=== PATIENT | female | born 1935 | race Caucasian/White ===

== ENCOUNTER 2016-11-02 10:26 | Observation (INO) ==
--- NOTE | 2016-11-02 11:53 | Emergency Department Note ---
Disposition Clinical Impression: Elevated troponin, Symptomatic anemia CHF exacerbation Qualifiers: Congestive heart failure type: unspecified congestive heart failure type Qualified Code(s): I50.9 - Heart failure, unspecified Disposition: Admitted As Inpatient Condition: Fair Referrals: Francisco Javier Torres DO [Primary Care Provider] - Forms: ED Satisfaction Letter General Adult HPI - General Chief complaint: ED Shortness of Breath/Dyspnea Stated complaint: ANKITA / Low O2 Sats Time Seen by Provider: 11/02/16 11:51 Source: patient, family Limitations: no limitations Nursing Notes Reviewed: Yes Vital Signs Reviewed: Yes - History of Present Illness HPI Narrative: 81 y/o female who presents due to bilateral LE edema and dyspnea. She has a PMH of CHF, COPD (on home O2), HLD, and Afib (on eliquis and labetalol), and CHF. She admits to dyspnea with exertion and lower than normal resting SPO2. Was seen at her PCP who recommended she come to the ER due to her hypoxia. SPO2 was in the mid 80's at the PCP office. Denies CP. Denies cough or new productive sputum. No fever. No belly pain or urinary difficulty. Also admits that her RLE was markedly swollen but has since improved some. Radiation: non-radiation Pain Scale: 0 Improves with: nothing Worsens with: other (exertion) Associated symptoms: Reports: denies other symptoms Treatments Prior to Arrival: none - Related Data Home Medications Medication Instructions Recorded Confirmed Aspirin 81 mg PO DAILY 06/20/15 01/26/16 Citalopram Hydrobromide [Celexa] 20 mg PO HS 06/20/15 01/26/16 Cyanocobalamin (Vitamin B-12) 1,000 mcg PO DAILY 06/20/15 01/26/16 [B-12] Ferrous Sulfate [Iron] 650 mg PO DAILY 06/20/15 01/26/16 Furosemide [Lasix] 40 mg PO BID 06/20/15 01/26/16 Simvastatin [Zocor] 40 mg PO HS 06/20/15 01/26/16 Apixaban [Eliquis] 2.5 mg PO BID 11/05/15 01/26/16 Labetalol HCl [Labetalol HCl] 200 mg PO DAILY 01/26/16 01/26/16 Lisinopril [Zestril] 10 mg PO DAILY 01/26/16 01/26/16 Previous Rx's Medication Instructions Recorded Pantoprazole Sodium [Protonix] 40 mg PO BID #60 tablet. 11/08/15 Allergies Allergy/AdvReac Type Severity Reaction Status Date / Time Penicillins [PCN] Allergy Hives Verified 01/26/16 11:14 All systems ED: reviewed and negative except as stated. Constitutional: Denies: fever Cardiovascular: Reports: dyspnea on exertion. Denies: chest pain Respiratory: Reports: dyspnea. Denies: cough Gastrointestinal: Denies: abdominal pain, nausea, vomiting Genitourinary: Denies: dysuria Musculoskeletal: Denies: back pain Integumentary: Denies: rash Neurological: Denies: headache Endocrine: Denies: fatigue Past Medical History - Past Medical History Medical history: Reports: arthritis, atrial fibrillation, CHF, COPD, coronary artery disease, GERD, hyperlipidemia, hypertension, osteoporosis, renal disease Surgical history: Reports: appendectomy, cholecystectomy, hysterectomy Psychiatric history: Reports: anxiety, depression DISTRICT MANAGER history: Reports: no DISTRICT MANAGER history - Social History Smoking Status: Unknown if ever smoked Smokeless Tobacco Status: No Alcohol use: Reports: none Drug use: Reports: none Physical Exam - General Limitations: no limitations General appearance: alert - Head Head exam: atraumatic - Eye Eye exam: Present: normal appearance, PERRL - ENT ENT exam: normal exam, normal oropharynx - Neck Neck exam: Present: normal inspection - Chest Chest inspection: Present: normal inspection - Respiratory Respiratory exam: Present: other (coarse lung sounds bilaterally). Absent: respiratory distress, wheezes - Cardiovascular Cardiovascular exam: Present: regular rate, normal rhythm - Abdominal Exam Abdominal exam: Present: soft, Non-Tender - Extremities Exam Extremities exam: Present: other (bilateral LE edema.) - Neurological Exam Neurological exam: Present: alert, oriented X3 - Skin Skin exam: Present: warm, dry Course Course Narrative: Due to intermittent RLE edema will get a doppler. In additional will do CP rule out. Vitals current stable. Troponin is 0.04 which is chronic for her. CXR shows some edema. Hgb is 6.7 which is lower than her baseline. Rectal exam performed and no bright red blood. Hemaccult is sent. Will give lasix for CHF exacerbation and give blood due to symptomatic anemia. Vital Signs Temperature 98.2 F 11/02/16 10:40 Pulse Rate 59 11/02/16 10:40 Respiratory Rate 18 11/02/16 10:40 Blood Pressure 132/54 11/02/16 10:40 O2 Sat by Pulse Oximetry 94 11/02/16 10:40 Temperature 98.2 F 11/02/16 10:40 Pulse Rate 66 11/02/16 12:03 Respiratory Rate 18 11/02/16 12:03 Blood Pressure 128/58 11/02/16 12:03 O2 Sat by Pulse Oximetry 98 11/02/16 12:03 Oxygen Delivery Oxygen Delivery Nasal Cannula Medical Decision Making - Medical Records Medical records reviewed: Yes I reviewed the patient's medical records. - Lab Data Lab results reviewed: Yes I reviewed the patient's lab results. - Radiology Data Radiology results reviewed: Yes I reviewed the patient's radiology results. - EKG Data EKG #1 EKG attestation: Yes I reviewed and interpreted this EKG. EKG shows normal: sinus rhythm Rhythm: NSR [place]/QRS: normal Interpretation: no acute changes
[2016-11-02 12:10] LABS: Eosinophils % 1.3 %
[2016-11-02 12:13] LABS: Basophils # 0.1 K/mcL (0.0-0.2); Basophils % 0.6 %; Eosinophils # 0.1 K/mcL (0.0-0.6); Hematocrit 23.6 % (35.3-44.9); Immature Granulocytes % 0.2 % (0-4); Lymphocytes # 0.7 K/mcL (0.6-4.6); Mean Corpuscular HGB Conc 28.8 g/dL (31.6-35.5); Mean Corpuscular Hemoglobin 26.2 pg (28.0-33.3); Mean Corpuscular Volume 90.8 fL (83.0-100.0); Mean Platelet Volume 10.1 fL (9.4-12.4); Monocytes # 0.6 K/mcL (0.0-1.3); Monocytes % 6.2 %; Neutrophils # 8.3 K/mcL (1.6-8.9); Platelet Count 225 K/mcL (140-400); Red Cell Distribution Width 14.4 % (11.5-14.5); Segmented Neutrophils % 84.7 %
[2016-11-02 12:14] LABS: Hemoglobin 6.8 g/dL (11.5-15.4)
[2016-11-02 12:21] LABS: Calcium 9.4 mg/dL (8.6-10.8); Potassium 3.6 mEq/L (3.5-4.5)
[2016-11-02] MEDS ORDERED: Furosemide 40 MG/4 ML VIAL IVP ONE (12:52)
--- NOTE | 2016-11-02 13:08 | Emergency Department Note ---
START Narrative - START START: I examined this patient and my medical decision-making was reviewed with the Resident Physician. I agree with the documented findings, disposition and treatment plan as described except to the extent set forth below. 81-year-old female presents emergency room for bilateral lower extremity edema as well as increasing shortness of breath. Patient is a history of CHF. she has a history of underlying anemia. Her hemoglobin is down to the 6 region. This could also explain her increasing dyspnea. Plan to transfuse with Lasix as well. Patient will need to be admitted. her vitals are stable. she has no complaints at this time. ekg stable.
[2016-11-02 13:13] LABS: Hypochromasia Present (Not Present); Platelet Estimate Normal (Normal)
[2016-11-02] MEDS ORDERED: Acetaminophen 325 MG TABLET PO PRN (16:58)
[2016-11-02] MEDS ORDERED: Ondansetron 4 MG/2 ML VIAL IVP PRN (16:58)
[2016-11-02] MEDS ORDERED: *HR* Morphine 2 MG/ML SYRINGE IVP PRN (16:58)
[2016-11-02] MEDS ORDERED: Naloxone 0.4 MG/ML INJ IVP PRN (16:58)
--- NOTE | 2016-11-02 17:11 | Internal Med History&Physical ---
Date of Encounter: 11/02/16 Time of Encounter: 17:08 Assessment and Plan (1) Symptomatic anemia Current visit: Yes Status: Acute Acute blood loss anemia/symptomatic anemia secondary to possibly rectal bleed exacerbated by Eliquis and aspirin Consults GI, hold Eliquis and aspirin Transfuse 1 unit of blood, monitor CBC No IV fluids due to CHF, nothing by mouth after midnight Protonix IV for GI prophylaxis and sequential compression devices for DVT prophylaxis. The patient will be admitted as inpatient, expected to stay more than 2 midnights. Full code. Time spent on this admission 40 minutes. High risk due to GI bleed (2) Diastolic CHF, chronic Current visit: No Status: Chronic Acute and chronic hypoxic respiratory failure secondary to combination of acute diastolic CHF exacerbation and acute COPD exacerbation due to bacterial bronchitis Continue IV Lasix, strict I's and O's and daily weight, order echocardiogram *Solu-Medrol, azithromycin, DuoNeb nebs and oxygen therapy (3) Pleural effusion Current visit: No Status: Chronic Continue Lasix (4) Acute exacerbation of chronic obstructive airways disease Current visit: No Status: Acute (5) Rectal bleeding Current visit: No Status: Resolved (6) Elevated troponin Current visit: Yes Status: Acute Likely secondary to renal disease Internal Medicine - H&P: HPI Chief complaint: Shortness of breath Admitted From: Emergency Dept History of present illness: Ms. Hutchinson is a 81 year old female with a past medical history of atrial fibrillation on Eliquis and aspirin, diastolic CHF, COPD oxygen dependent, came to the emergency crew complaining of several days of difficulty breathing. She went to see her primary care physician where she was noticed that her saturation of oxygen was in the 80s. She says that her legs have been more swollen lately and she is being more fatigued. Also, is complaining of a constant cough bringing up yellowish phlegm, no fevers or sick contacts. Her hemoglobin was found to be 6.8, Hemoccult was negative but she has been having small rectal bleed on and off. Has history of esophagitis and gastritis and is taking a PPI/Protonix twice a day. Creatinine is 1.27 at baseline CO2 is 40 troponin 0.04 she has history of chronically elevated troponins. Was given Lasix and started being transfused at the emergency room. She is a stable otherwise. Chest x-ray showed vascular congestion with a small posterior pleural effusions Past Med Surg Social Fam HX - Past Medical History Medical history: arthritis, atrial fibrillation (on Eliquis), CHF (Diastolic), COPD (Oxygen dependent using 2 and a half to 3 L continuously), coronary artery disease, GERD, hyperlipidemia, hypertension, osteoporosis, renal disease (Chronic kidney disease of stage III), other (Diverticulitis, chronic anemia, chronically elevated troponins, esophagitis, gastritis, hiatal hernia, osteoporosis, hypertension, depression) Psychiatric history: anxiety, depression - Past Surgical History Surgical History: appendectomy, cholecystectomy, hysterectomy, other (Spinal fusion/back surgery, hemorrhoidectomy, last echocardiogram was from June 2015 showing a normal ejection fraction) - Social History Smoking Status: Former smoker (Quit 4 years ago) Smokeless Tobacco Status: No Alcohol use: none Drug use: none - Family History Mother Adopted: No Family Member Ethnicity: Non- Twin of Family Member: Yes, Fraternal Living Status: Hx Family Cardiac Disorders: Yes (pacemaker, CHF) Hx Family Respiratory Disorders: No Hx Family Cancer: Yes (colon cancer) Hx Family GI Disorders: Yes Hx Family Endocrine Disorder: No Hx Family Neuromuscular Disorders: No Hx Family Neurologic Disorders: No Hx Family HEENT Disorders: Yes (Swallowing issues) Hx Family Autoimmune Disorders: No - Additional Family History Additional family history: Brother with colon cancer mother with pacemaker Internal Medicine - H&P: Meds Aspirin 81 mg PO DAILY 06/20/15 [History] Cyanocobalamin (Vitamin B-12) [B-12] 1,000 mcg PO DAILY 06/20/15 [History] Ferrous Sulfate [Iron] 650 mg PO DAILY 06/20/15 [History] Furosemide [Lasix] 40 mg PO BID 06/20/15 [History] Simvastatin [Zocor] 40 mg PO HS 06/20/15 [History] Pantoprazole Sodium [Protonix] 40 mg PO BID #60 tablet.dr 11/08/15 [Rx] Labetalol HCl [Labetalol HCl] 200 mg PO DAILY 01/26/16 [History] Albuterol Sulfate [Ventolin Hfa] 2 puff IH Q4-6H PRN 11/02/16 [History] Apixaban [Eliquis] 5 mg PO BID 11/02/16 [History] Budesonide/Formoterol 160/4.5 [Symbicort 160/4.5] 2 puff IH BIDR 11/02/16 [ History] Calcitriol [Rocaltrol] 0.25 mcg PO DAILY 11/02/16 [History] Citalopram Hydrobromide [Celexa] 40 mg PO DAILY 11/02/16 [History] 3 Allergy/AdvReac Type Severity Reaction Status Date / Time Penicillins [PCN] Allergy Hives Verified 01/26/16 11:14 All Systems PM: A 10-system review of systems was performed and is negative for pertinent findings except as documented above in the HPI. Review of systems: Denies any chest pain, no abdominal pain. Other systems out of the 10 reviewed were negative - Constitutional Vitals: Temp Pulse Resp BP Pulse Ox 99.5 F 63 14 132/60 94 11/02/16 17:03 11/02/16 17:03 11/02/16 17:03 11/02/16 17:03 11/02/16 17:03 General appearance: Present: A&O X 3 - Head Head exam: Present: atraumatic, normocephalic - Eye Eye exam: Present: PERRL, conjuntiva pink, sclera anicteric Pupils: Present: PERRL - Neck Neck exam general surgery: Present: supple, trachea midline. Absent: lymphadenopathy - Respiratory Respiratory exam: Present: CTAB, rales, wheezes (Diffuse crackles and wheezing) . Absent: accessory muscle use, rhonchi - Cardiovascular Cardiovascular exam: Present: RRR, +S1, +S2. Absent: diastolic murmur, gallop, rubs, systolic murmur - GI/Abdominal GI/Abdominal exam: Present: normal bowel sounds, soft, no peritoneal signs. Absent: distended, tenderness - Extremities Exam Extremities exam: Present: pedal edema (+1 pitting edema in both lower extremities), warm, radial pulses palpable and symmetrical. Absent: calf tenderness, cyanotic - Neurological Exam Neurological exam: Present: CN II-XII intact, oriented X3, no focal deficits. Absent: pronater drift, facial droop, speech deficit - Skin Skin exam: Present: dry, intact Internal Med - H&P Results - Labs CBC & Chem 7: 11/02/16 12:01 11/02/16 12:01
[2016-11-02] MEDS ORDERED: Furosemide 40 MG TABLET PO SCH (17:15)
[2016-11-02] MEDS ORDERED: *HR* LORazepam 2 MG/ML VIAL IVP PRN (17:43)
[2016-11-02] MEDS: Azithromycin 250 MG TABLET PO SCH (17:52)
[2016-11-02] MEDS: MethylPREDNISolone 40 MG/ML VIAL IVP SCH ×2 (17:55→20:07)
[2016-11-02] MEDS: Pantoprazole 40 MG VIAL IVP SCH (17:55)
--- NOTE | 2016-11-02 18:02 | Venous Imaging Report ---
LE Venous Duplex Patient Name:Hilda Hutchinson Order Number:[id number] Procedure Date:11/02/2016 Date:1935ge:81 yrs Gender:Female Location:[facility] ED Room #: Histologic Technician:Randa Gramajo, RVT Referring MD:Kevin Koenig DO Reading MD:Rogelio Mistry MD , FACS Primary Indications:Edema Secondary Indications: Impressions: Left lower extremity: normal deep exam. Right lower extremity: normal contralateral exam. Recommendations: Test completed on 11/02/2016 at 1:45:00 pm. Findings Venous Duplex Results: Right: Venous imaging of the lower extremity reveals full patency and normal vessel compressibility of the right common femoral. Doppler signals in the evaluated veins were normal. Left: Venous imaging of the lower extremity reveals full patency and normal vessel compressibility of the left distal iliac, left common femoral, left superficial femoral, left popliteal, left posterior tibial, left peroneal and left lesser saphenous. Doppler signals in the evaluated veins were normal. The left great saphenous vein was not assessed. Prior Study: No change compared to prior study dated: 02/26/2015. L GSV has been stripped. Results to Dr. Koenig on 11/02/16 @ 9604. Lower Extremity Venous Duplex Side Vein Compress Spontaneous Flow Augment Diameter (cm) Depth (cm) Left Distal Iliac Normal Yes Phasic Yes Left Common Femoral Normal Yes Phasic Yes Left Superficial Femoral Normal Yes Phasic Yes Left Popliteal Normal Yes Phasic Yes Left Posterior Tibial Normal Yes Phasic Yes Left Peroneal Normal Yes Phasic Yes Left Great Saphenous Left Lesser Saphenous Normal Yes Phasic Yes Right Common Femoral Normal Yes Phasic Yes Updated by Rogelio Mistry MD, FACS on 11/02/2016 5:55:23 PM Rogelio Mistry MD electronically signed on 11/02/2016 5:55:36 PM with status of Final
[2016-11-02] MEDS: Ipratropium/Albuterol Neb 3 ML IH SCH ×2 (18:41→23:12)
[2016-11-02] MEDS ORDERED: 0.9 % Sodium Chloride 250 ML ONE (21:23)
[2016-11-03] MEDS: Pantoprazole 40 MG VIAL IVP SCH ×2 (04:46→17:15)
[2016-11-03 05:18] LABS: Basophils % 0.1 %; Hematocrit 27.7 % (35.3-44.9); Hemoglobin 8.1 g/dL (11.5-15.4); Immature Granulocytes % 1.3 % (0-4); Lymphocytes # 0.3 K/mcL (0.6-4.6); Lymphocytes % 4.4 %; Mean Corpuscular HGB Conc 29.2 g/dL (31.6-35.5); Mean Corpuscular Hemoglobin 25.8 pg (28.0-33.3); Mean Corpuscular Volume 88.2 fL (83.0-100.0); Mean Platelet Volume 10.3 fL (9.4-12.4); Monocytes # 0.1 K/mcL (0.0-1.3); Monocytes % 1.9 %; Neutrophils # 6.2 K/mcL (1.6-8.9); Platelet Count 195 K/mcL (140-400); Red Blood Count 3.14 M/mcL (3.82-4.97); Red Cell Distribution Width 15.6 % (11.5-14.5); Segmented Neutrophils % 92.3 %
[2016-11-03 05:32] LABS: Potassium 4.1 mEq/L (3.5-4.5)
[2016-11-03] MEDS: Ipratropium/Albuterol Neb 3 ML IH SCH ×4 (05:52→23:58)
--- NOTE | 2016-11-03 07:54 | Anesthesia Evaluation PreOp ---
Date of Encounter: 11/03/16 Time of Encounter: 07:52 - Past History Planned Operation: EGD Cardiac History: CHF, HTN, Hyperlipidemia, Arrhythmia (H/O A-Fib) Pulmonary History: Former smoker (quit 10 years ago, smoked for 20 Years), COPD (home O2 3L) CHILDCARE AIDE History: Denies Any Significant HX Other Medical History: GERD Anesthesia History: No Prior Anesthetic Complications, Past Anesthesia Alcohol Use: none Drug use: none Medications and Allergies Aspirin 81 mg PO DAILY 06/20/15 [History] Cyanocobalamin (Vitamin B-12) [B-12] 1,000 mcg PO DAILY 06/20/15 [History] Ferrous Sulfate [Iron] 650 mg PO DAILY 06/20/15 [History] Furosemide [Lasix] 40 mg PO BID 06/20/15 [History] Simvastatin [Zocor] 40 mg PO HS 06/20/15 [History] Pantoprazole Sodium [Protonix] 40 mg PO BID #60 tablet. 11/08/15 [Rx] Labetalol HCl [Labetalol HCl] 200 mg PO DAILY 01/26/16 [History] Albuterol Sulfate [Ventolin Hfa] 2 puff IH Q4-6H PRN 11/02/16 [History] Apixaban [Eliquis] 5 mg PO BID 11/02/16 [History] Budesonide/Formoterol 160/4.5 [Symbicort 160/4.5] 2 puff IH BIDR 11/02/16 [ History] Calcitriol [Rocaltrol] 0.25 mcg PO DAILY 11/02/16 [History] Citalopram Hydrobromide [Celexa] 40 mg PO DAILY 11/02/16 [History] 3 Allergy/AdvReac Type Severity Reaction Status Date / Time Penicillins [PCN] Allergy Hives Verified 01/26/16 11:14 - Meds/Allergy Pre-op Review Medications Reviewed: Yes Allergies Reviewed: Yes Beta Blockers on Current Med List: Yes If Beta Blockers taken, Date/Time (Last Dose taken): 11/02/2016 at 0800 Anesthesia Results - Labs 11/03/16 04:27 11/03/16 04:27 - Imaging EKG: report reviewed (11/05/2015 Sinus rhythm with sinus arrhythmia) Additional studies: 06/21/2015 Echo Impressions: Technically sub-optimal due to poor echocardiographic windows. Normal LV systolic function, LVEF 65-70%. Mild concentric left ventricular hypertrophy. Indeterminate diastolic function due to atrial fibrillation. Normal right ventricular structure and function. No evidence of pulmonary hypertension. No significant valvular dysfunction. 08/13/2013 Echo Impressions: LVEF 55%. Normal left ventricular size and systolic function. Improper assessment of diastolic function. There is no evidence of left ventricular thrombus. Definity was given. Unable to assess valvular function with this study. Normal right ventricular size and function. No proper TR jet to assess gradient or RVSP Suggest another imaging modality (such as ERIKA) to assess valvular function only if clinically indicated. Clinical correlation is suggested. Anesthesia Exam Vital Signs/O2 Sat, Most Current Temp Pulse Resp BP Pulse Ox 98.5 F 67 18 161/66 98 11/03/16 03:31 11/03/16 03:31 11/03/16 03:31 11/03/16 03:11/03/16 03:31 3 Vital Signs 6L by NC 10L by mask Time 0753 0807 BP 167/73 152/65 Pulse 70 71 Resp 24 22 O2 Sat 87% 98 % Height: 5'3''/1.6 m Weight: 173 lbs/78.471 kg NPO (# of Hours): 8 Pain Scale: 0 Pain Scale Used: Numeric (1 - 10) - HEENT Pupil (Motor): EOMI Mallampati: II Denture Type: Upper: Complete Oral Opening: Greater than 3 - CHILDCARE AIDE LOC: Oriented CHILDCARE AIDE Motor: Normal RUE, Normal LUE, Normal RLE, Normal LLE, Normal Face CHILDCARE AIDE Sensory: Normal: RUE, LUE, RLE, LLE, Face - Cardiac Rhythm: Regular Murmur: None - Pulmonary Breath Sounds: bilateral Clear Respiratory Effort: Symmetrical Anesthesia Assess/Plan ASA Score: 4 Modified Bicknell Scale for Level of Consciousness: Cooperative, oriented, and tranquil Anesthetic Plan: MAC Monitoring Plan: Standard Monitors
--- NOTE | 2016-11-03 08:06 | Internal Med Progress Note ---
Date of Encounter: 11/03/16 Time of Encounter: 08:04 - Assessment and plan (1) Symptomatic anemia Current Visit: Yes Status: Acute Assessment and plan: Acute blood loss anemia/symptomatic anemia secondary to possibly rectal bleed exacerbated by Eliquis and aspirin Consulted GI, hold Eliquis and aspirin Transfused blood, monitor CBC No IV fluids due to CHF, endoscopy today, GI recommendations appreciated Protonix IV (2) Diastolic CHF, chronic Current Visit: No Status: Chronic Assessment and plan: Acute and chronic hypoxic respiratory failure secondary to combination of acute diastolic CHF exacerbation and acute COPD exacerbation due to bacterial bronchitis Chest x-ray showed vascular congestion with a small posterior pleural effusions Continue IV Lasix, strict I's and O's and daily weight, order echocardiogram *Solu-Medrol, azithromycin day 2, DuoNeb nebs and oxygen therapy (3) Pleural effusion Current Visit: No Status: Chronic Assessment and plan: Continue Lasix (4) Acute exacerbation of chronic obstructive airways disease Current Visit: No Status: Acute (5) Rectal bleeding Current Visit: No Status: Resolved (6) Elevated troponin Current Visit: Yes Status: Acute Assessment and plan: Chronically elevated troponins, likely related to renal disease - Subjective Interval history: Still feeling short of breath, no rectal bleeding, denies any chest pain, no abdominal pain, no dysuria, no nausea or vomiting - Constitutional Vitals: Temp Pulse Resp BP Pulse Ox 98.5 F 67 18 161/66 98 11/03/16 03:31 11/03/16 03:31 11/03/16 03:31 11/03/16 03:31 11/03/16 03:31 General appearance: Present: A&O X 3 Exam: - Head Head exam: Present: atraumatic, normocephalic - Eye Eye exam: Present: PERRL, conjuntiva pink, sclera anicteric Pupils: Present: PERRL - Neck Neck exam general surgery: Present: supple, trachea midline. Absent: lymphadenopathy - Respiratory Respiratory exam: Present: CTAB, rales, wheezes (less Diffuse crackles and wheezing). Absent: accessory muscle use, rhonchi - Cardiovascular Cardiovascular exam: Present: RRR, +S1, +S2. Absent: diastolic murmur, gallop, rubs, systolic murmur - GI/Abdominal GI/Abdominal exam: Present: normal bowel sounds, soft, no peritoneal signs. Absent: distended, tenderness - Extremities Exam Extremities exam: Present: pedal edema (+1 pitting edema in both lower extremities), warm, radial pulses palpable and symmetrical. Absent: calf tenderness, cyanotic - Neurological Exam Neurological exam: Present: CN II-XII intact, oriented X3, no focal deficits. Absent: pronater drift, facial droop, speech deficit - Skin Skin exam: Present: dry, intact Internal Medicine: Result - Labs CBC & Chem 7: 11/03/16 04:27 11/03/16 04:27 Labs: Short CBC 11/03/16 Range/Units 04:27 WBC 6.8 (4.3-11.1) K/mcL Hgb 8.1 L (11.5-15.4) g/dL Hct 27.7 L (35.3-44.9) % Plt Count 195 (140-400) K/mcL Neutrophils # 6.2 (1.6-8.9) K/mcL BMP 11/03/16 04:27 Sodium 146 H Potassium 4.1 Chloride 93 L Carbon Dioxide 43 H* BUN 19 Creatinine 1.35 H Glucose 151 H Calcium 9.0 - ABG Interpretation ABG results: PT/INR, D-dimer D-Dimer 237 ng/mLFEU (0-500) 11/02/16 12:03 - VTE Documentation of Mechanical Device: Intermittent pneumatic compression device Consult Discharge Plan - Plan Referrals: Francisco Javier Torres DO [Primary Care Provider] -
--- NOTE | 2016-11-03 08:29 | Gastroenterology Consult Note ---
<GilbertJenae carroll - Last Filed: 11/03/16 08:24> Date of Encounter: 11/03/16 Time of Encounter: 08:24 - Assessment and plan (1) Symptomatic anemia Status: Acute Assessment and plan: patient presented with chief complaint in difficulty in breathing with low oxygen saturations. Hg upon admission was 6.8. s/p transfusion of two units packed red blood cells. Patient is on Eliquis for history of Afib EGD from 01/26/16 (done for follow up for gastric ulcers) showed grade A reflux esophagitis, small hatal hernia, normal stomach and duodenum, no biopsies taken. last colonoscopy from 11/08/15 showed diverticulosis in sigmoid colon, distal rectum and anal verge were normal, 3mm non bleeding polyp at hepatic flexure that was removed, pathology showed tubular adenoma. At that time, repeat colonoscopy was recommended in 5 years. Plan: hold Eliquis and ASA continue to monitor H/H IV PPI BID NPO EGD later today. further recs following EGD. (2) Rectal bleeding Status: Resolved Assessment and plan: plan as above. - Time Spent With Patient Total time spent is greater than 50% in coordination of care (as documented) at patient's floor/unit and/or counseling patient: GI History of Present Illness - Data of Consult Consult date: 11/03/16 Requesting Physician: Eduardo Prasad - Consult Narrative Reason for consult: Anemia, GI bleed. History of present illness: Ms. Hutchinson is a 81 year old female with PMHx of Afib (on Eliquis), Diastolic CHF, COPD, arthritis, CAD, GERD, HLD, HTN, gastritis, esopohagitis, hiatal hernia, diverticulosis, CKD. Patient arrived to [facility] on 11/02/16 with chief complaint of difficulty in breathing that has been getting progressively worse. she was at her PCP office where her oxygen sat was known to be in the 80s. After arrival to the hospital, her Hg was found to be 6.8. She was admitted for further work up for her symptomatic anemia. patient denies fevers or chills. She admits to having bright red blood in her stools intermittently in the past, and having intermittent dark/tarry stools. she also reports mild intermittent lower abdominal pain. she denies chest pain, shortness of breath, fevers, chills. Past Med Surg Social Fam HX - Past Medical History Medical history: arthritis, atrial fibrillation (on Eliquis), CHF (Diastolic), COPD (Oxygen dependent using 2 and a half to 3 L continuously), coronary artery disease, GERD, hyperlipidemia, hypertension, osteoporosis, renal disease (Chronic kidney disease of stage III), other (Diverticulitis, chronic anemia, chronically elevated troponins, esophagitis, gastritis, hiatal hernia, osteoporosis, hypertension, depression) Psychiatric history: anxiety, depression - Past Surgical History Surgical History: appendectomy, cholecystectomy, hysterectomy, other (Spinal fusion/back surgery, hemorrhoidectomy, last echocardiogram was from June 2015 showing a normal ejection fraction) - Social History Smoking Status: Former smoker (Quit 4 years ago) Smokeless Tobacco Status: No Alcohol use: none Drug use: none - Family History Mother Adopted: No Family Member Ethnicity: Non- Twin of Family Member: Yes, Fraternal Living Status: Age at : 89 Hx Family Cardiac Disorders: Yes (pacemaker, CHF) Hx Family Respiratory Disorders: No Hx Family Cancer: Yes (colon cancer) Hx Family GI Disorders: Yes Hx Family Endocrine Disorder: No Hx Family Neuromuscular Disorders: No Hx Family Neurologic Disorders: No Hx Family HEENT Disorders: Yes (Swallowing issues) Hx Family Autoimmune Disorders: No Hx Family Reproductive Disorders: Yes (ovaries) All systems PM: reviewed and no additional remarkable complaints except as stated - Constitutional Vitals: Temp Pulse Resp BP Pulse Ox 98.5 F 67 18 161/66 98 11/03/16 03:31 11/03/16 03:31 11/03/16 03:31 11/03/16 03:31 11/03/16 03:31 - Head Head exam: Present: atraumatic, normocephalic - Eye Additional comments: pale conjunctiva - Neck Neck exam general surgery: Present: supple, trachea midline - Respiratory Additional comments: left sided rales present. overall decreased breath sounds. - Cardiovascular Cardiovascular exam: Present: RRR, +S1, +S2 - GI/Abdominal GI/Abdominal exam: Present: normal bowel sounds, soft. Absent: distended, tenderness - Neurological Exam Neurological exam: Present: alert, oriented X3, no focal deficits - Psychiatric Psychiatric exam: Present: normal affect, normal mood Results - Labs CBC & Chem 7: 11/03/16 04:27 11/03/16 04:27 Labs: Last Result Calcium 9.0 mg/dL (8.6-10.8) 11/03/16 04:27 Troponin I 0.04 ng/mL (0-0.03) H* 11/02/16 12:01 Stool Occult Blood Negative (Negative) 11/02/16 12:51 Entire Visit Hgb 8.1 g/dL (11.5-15.4) L 11/03/16 04:27 Hct 27.7 % (35.3-44.9) L 11/03/16 04:27 - ABG ABG results: PT/INR, D-dimer D-Dimer 237 ng/mLFEU (0-500) 11/02/16 12:03 Consult Discharge Plan - Plan Instructions: Heart Failure (DC), Diverticulitis (DC), Anemia (GEN) Additional Instructions: Follow up with primary care provider in a week. Follow up with Dr. Davila in GI when arranged Hold Eliquis till seen by Dr. Davila due to bleeding. Ok to resume ASA at this time. Return for new or concerning symptoms. Referrals: Francisco Javier Torres DO [Primary Care Provider] - Prescriptions: Azithromycin [Zithromax] 500 mg PO DAILY #2 tab predniSONE [PredniSONE] See Taper PO DAILY #30 tablet <Wong Davila - Last Filed: 11/13/16 15:54> Date of Encounter: 11/03/16 - Time Spent With Patient Total time spent is greater than 50% in coordination of care (as documented) at patient's floor/unit and/or counseling patient: GI History of Present Illness - Data of Consult Requesting Physician: Jase Grimm DO - Consult Narrative History of present illness: Ms. Hutchinson is a 81 year old female - Constitutional Vitals: Temp Pulse Resp BP Pulse Ox 98.4 F 64 16 145/77 93 11/04/16 16:09 11/04/16 16:09 11/04/16 16:21 11/04/16 16:09 11/04/16 16:21 Results - Labs CBC & Chem 7: 11/04/16 03:43 11/04/16 03:43 Labs: Last Result Calcium 9.3 mg/dL (8.6-10.8) 11/04/16 03:43 Troponin I 0.04 ng/mL (0-0.03) H* 11/02/16 12:01 Stool Occult Blood Negative (Negative) 11/02/16 12:51 Entire Visit Hgb 8.0 g/dL (11.5-15.4) L 11/04/16 03:43 Hct 27.1 % (35.3-44.9) L 11/04/16 03:43 - ABG ABG results: PT/INR, D-dimer D-Dimer 237 ng/mLFEU (0-500) 11/02/16 12:03 - Attending Attestation I personally examined and interviewed Ms. Hutchinson and reviewed and agree with the above assessment. Will plan EGD today and make further recommendations after that.
[2016-11-03] MEDS ORDERED: Tetracaine/Benzocaine/Butamben 200MG/SPRAY (100SPY/BOT) MM ONE (09:00)
[2016-11-03] MEDS ORDERED: Perflutren Lipid Microsphere 1.3 ML in 0.9 % Sodium Chloride 8.7 ML IVP ONE (09:10)
[2016-11-03] MEDS: MethylPREDNISolone 40 MG/ML VIAL IVP SCH ×2 (10:44→20:21)
[2016-11-03] MEDS: Azithromycin 250 MG TABLET PO SCH (10:45)
[2016-11-03] MEDS ORDERED: SODIUM CHLORIDE/NAHCO3/KCL/PEG 4,000 ML SOLN.RECON PO ONE (14:00)
[2016-11-03] MEDS ORDERED: *HR* Propofol 500 MG/50 ML BOTTLE IVC ONE (16:50)
[2016-11-03] MEDS: Furosemide 20 MG TABLET PO SCH (17:15)
[2016-11-04 04:42] LABS: Hematocrit 27.1 % (35.3-44.9); Mean Corpuscular HGB Conc 29.5 g/dL (31.6-35.5); Mean Corpuscular Hemoglobin 26.1 pg (28.0-33.3); Mean Corpuscular Volume 88.3 fL (83.0-100.0); Mean Platelet Volume 10.7 fL (9.4-12.4); Platelet Count 217 K/mcL (140-400); Red Blood Count 3.07 M/mcL (3.82-4.97); Red Cell Distribution Width 15.7 % (11.5-14.5)
[2016-11-04] MEDS: Ipratropium/Albuterol Neb 3 ML IH SCH ×3 (04:46→16:20)
[2016-11-04 04:57] LABS: Calcium 9.3 mg/dL (8.6-10.8); Potassium 3.3 mEq/L (3.5-4.5)
[2016-11-04] MEDS: Pantoprazole 40 MG VIAL IVP SCH (06:33)
[2016-11-04] MEDS ORDERED: Propofol 500 MG/50 ML INFUS..BTL ONE (07:33)
[2016-11-04] MEDS ORDERED: Lidocaine -MPF 2% 2 ML VIAL ONE ×2 (07:33)
[2016-11-04] MEDS ORDERED: Lidocaine Jelly 6ml 1 APPL/6 ML JEL.PF.APP MM ONE (08:30)
--- NOTE | 2016-11-04 09:28 | Discharge Summary ---
Date of Encounter: 11/04/16 Time of Encounter: 09:26 - Discharge Diagnosis (1) Anemia Priority: Primary Status: Acute Qualifiers: Anemia type: iron deficiency Iron deficiency anemia type: chronic blood loss Qualified Code(s): D50.0 - Iron deficiency anemia secondary to blood loss (chronic) (2) GI bleed Priority: Primary Status: Acute Qualifiers: GI bleed type/associated pathology: melena Qualified Code(s): K92.1 - Melena (3) COPD exacerbation Priority: Secondary Status: Acute (4) Chronic respiratory failure with hypoxia Priority: Secondary Status: Chronic (5) Congestive heart failure Priority: Secondary Status: Chronic Qualifiers: Congestive heart failure type: diastolic Congestive heart failure chronicity: chronic Qualified Code(s): I50.32 - Chronic diastolic (congestive ) heart failure (6) Pleural effusion Priority: Secondary Status: Chronic (7) Atrial fibrillation Priority: Secondary Status: Chronic Qualifiers: Atrial fibrillation type: chronic Qualified Code(s): I48.2 - Chronic atrial fibrillation (8) Essential hypertension Priority: Secondary Status: Chronic (9) CKD (chronic kidney disease) stage 3, GFR 30-59 ml/min Priority: Secondary Status: Chronic (10) Esophagitis, [place] grade A Priority: Secondary Status: Chronic (11) Gastritis Priority: Secondary Status: Chronic Qualifiers: Gastritis type: other gastritis Chronicity: chronic Gastritis bleeding: without bleeding Qualified Code(s): K29.50 - Unspecified chronic gastritis without bleeding (12) Hemorrhoids, internal Priority: Secondary Status: Chronic (13) Hiatal hernia with gastroesophageal reflux Priority: Secondary Status: Chronic (14) Diverticulosis large intestine w/o perforation or abscess w/o bleeding Priority: Secondary Status: Chronic - Discharge Medications Prescriptions: Azithromycin [Zithromax] 500 mg PO DAILY #2 tab predniSONE [PredniSONE] See Taper PO DAILY #30 tablet Home Medications: Aspirin 81 mg PO DAILY 06/20/15 [History] Cyanocobalamin (Vitamin B-12) [B-12] 1,000 mcg PO DAILY 06/20/15 [History] Ferrous Sulfate [Iron] 650 mg PO DAILY 06/20/15 [History] Simvastatin [Zocor] 40 mg PO HS 06/20/15 [History] Pantoprazole Sodium [Protonix] 40 mg PO BID #60 tablet. 11/08/15 [Rx] Labetalol HCl 200 mg PO DAILY 12/07/16 [History] Albuterol Sulfate [Ventolin Hfa] 2 puff IH Q4-6H PRN 11/02/16 [History] Budesonide/Formoterol 160/4.5 [Symbicort 160/4.5] 2 puff IH BIDR 11/02/16 [ History] Calcitriol [Rocaltrol] 0.25 mcg PO DAILY 11/02/16 [History] Citalopram Hydrobromide [Celexa] 40 mg PO DAILY 11/02/16 [History] Acetaminophen [Tylenol] 650 mg PO Q6HR PRN tab 11/04/16 [Rx] Azithromycin [Zithromax] 500 mg PO DAILY #2 tab 11/04/16 [Rx] Furosemide [Lasix] 20 mg PO BIDDIURETIC tab 11/04/16 [Rx] predniSONE [PredniSONE] See Taper PO DAILY #30 tablet 11/04/16 [Rx] Allergies/Adverse Reactions: 3 Allergy/AdvReac Type Severity Reaction Status Date / Time Penicillins [PCN] Allergy Hives Verified 01/26/16 11:14 Procedures/tests Complete & Pending: Procedures Performed prior 72 hours Category Date Time Status EV echocardiogram Routine Y 11/03/16 17:06 Completed - Notes to Outpatient Provider Ajit currently on hold pending capsule endoscopy per GI. Date of admission: 11/02/16 14:53 Primary care physician: Francisco Javier Torres DO Consults: 11/02/16 16:58 Consult to Nurse Navigator [CONS] Routine Comment: Consult to Nurse Navigator [CONS] Routine Comment: 11/02/16 17:06 Consult to Gastroenterology [CONS] Routine Consulting Provider: Gastroenterology Ellie Reason for Consult: anemia, rectal bleed Call Completed: Yes 11/03/16 11:28 Consult to Professor Of Counseling [CONS] Routine Reason for SW Consult: Patient has HH and Aid services Discharging clinician: Jase Grimm Anticipated date of discharge: 11/04/16 - Patient Status Disposition: Home, Self-Care Condition: Fair Functional capacity at discharge: independent ambulation Overall status at discharge: patient is progressing back to baseline - Discharge Instructions Follow Up With: Francisco Javier Torres DO [Primary Care Provider] - Additional Instructions: Follow up with primary care provider in a week. Follow up with Dr. Davila in GI when arranged Hold Eliquis till seen by Dr. Davila due to bleeding. Ok to resume ASA at this time. Return for new or concerning symptoms. - Diet and Activity Activity: increase activity as tolerated Diet: advance to your usual diet Hospital course: Ms. Hutchinson is a 81 year old female with hx of multiple medical problems presented to ED with increased dyspnea. She has hx of CHF and COPD (oxygen dependent). She was evaluated and found to have hemoglobin of 6.8 and well as increased hypoxia and purulent sputum. She was placed in observation for further evaluation and treatment. Ms. Hutchinson was placed in observation on med [employer]. Her ASA and Eliquis were held and she was transfused PRBCs. She symptomatically improved with this treatment as well as the addition of treatment of her COPD with steroids and abx. She was taken to EGD on 11/03 and found to have non bleeding esophagitis and gastritis. She had colonoscopy on 11/04 which did not reveal overt bleeding source. Her hemoglobin was around 8 and she was given another unit of PRBCs and IV iron. She was afebrile with stable vitals and was felt ready for discharge home following transfusion. Her Eliquis is currently on hold pending further evaluation by GI (capsule study ). She is to follow with her PCP and GI. She will complete Prednisone taper and 2 more days of Azithromycin as well. - Time Spent with Patient Total time spent providing and/or coordinating discharge services: 41min - Constitutional Vitals: Temp Pulse Resp BP Pulse Ox 97.7 F 71 18 153/76 94 11/04/16 07:27 11/04/16 07:27 11/04/16 07:32 11/04/16 07:27 11/04/16 07:32 General appearance: Present: A&O X 3, pleasant, answers questions appropriately - Head Head exam: Present: normocephalic - Eye Eye exam: Present: conjuntiva pink - ENT ENT exam: Present: mucous membranes dry - Respiratory Respiratory exam: Present: decreased breath sounds, rhonchi. Absent: wheezes - Cardiovascular Cardiovascular exam: Present: irregular rhythm. Absent: tachycardia - GI/Abdominal GI/Abdominal exam: Present: soft. Absent: tenderness - Extremities Exam Extremities exam: Present: warm. Absent: tenderness - Neurological Exam Neurological exam: Present: alert, oriented X3 - Skin Skin exam: Present: warm. Absent: rash - VTE Documentation of Mechanical Device: Intermittent pneumatic compression device
[2016-11-04] MEDS: Azithromycin 250 MG TABLET PO SCH (09:30)
[2016-11-04] MEDS: Furosemide 20 MG TABLET PO SCH (09:30)
[2016-11-04] MEDS: MethylPREDNISolone 40 MG/ML VIAL IVP SCH (09:30)
[2016-11-04] MEDS ORDERED: Furosemide 20 MG/2 ML VIAL IVP ONE (09:35)
[2016-11-04] MEDS ORDERED: Iron Sucrose Complex 200 MG in 0.9 % Sodium Chloride 100 ML IVPB ONE (09:45)
[2016-11-04] MEDS ORDERED: 0.9 % Sodium Chloride 250 ML IVC SCH (09:45)
[2016-11-04] MEDS ORDERED: 0.9 % Sodium Chloride 250 ML ONE (12:19)
[2016-11-04 16:10] VITALS: BP 145/77
--- NOTE | 2016-11-06 20:52 | Electrocardiograph Report ---
[place] [id number] Test Date: 2016-11-02 Pat Name: Hilda Hutchinson Department: 102 Room: 3B14 Gender: F Gallery Manager: Msc : [id number] Requested By: José Hernandez Order Number: [id number] Reading MD: Deejay Frazier MD Measurements Intervals Wana Rate: 60 P: 105 AR: 177 QRS: 47 QRSD: 90 T: 64 QT: 452 QTc: 452 Interpretive Statements SINUS RHYTHM WITH OCCASIONAL SUPRAVENTRICULAR PREMATURE COMPLEXES BASELINE ARTIFACT, REPEAT EKG BASELINE ARTIFACT COMPLICATES ACCURATE INTERPRETATION Electronically Signed On 11-06-2016 20:51:04 EDT by Deejay Frazier MD
== END 2016-11-04 16:51 | disposition home or self-care (01) ==
LOC: EMEROO 10:26 → 3BNU 10:26 → SUATTDRO 14:53 → 3BNU 16:06 → SUATTDRO 18:34
PROVIDERS: ADMIT Registered Nurse; ATTEND Internal Medicine
PROC: ENDOEBX (2016-11-03 08:30)

== ENCOUNTER 2017-01-29 10:54 | Inpatient (IN) ==
[2017-01-29] MEDS ORDERED: predniSONE 20 MG TABLET PO ONE (11:01)
[2017-01-29] MEDS ORDERED: Ipratropium/Albuterol Neb 3 ML IH ONE (11:01)
--- NOTE | 2017-01-29 11:15 | Emergency Department Note ---
START Narrative - START START: I examined this patient and my medical decision-making was reviewed with the PRINT MACHINE OPERATOR/PA/Advanced Practice Nurse/Resident Physician. I agree with the documented findings, disposition and treatment plan as described except to the extent set forth below. ED attending: Patient's emergency medicine resident Dr. Ashia Ramos. Please see copy of this note for H&P evaluation and management and ED disposition. We both had independent [id number] time in contact with this patient. Briefly: A 81-year-old female with relief I EMS for shortness of breath. History of A. fib on Cymbalta.*PCP last week was given an antibiotic of which the patient cannot recall. Increased hypoxia weakness and shortness of breath. She has rhonchorous breath sounds bilaterally. EKG shows A. fib with rate controlled at 74 bpm. Patient and ED workup with her breathing treatment steroids chest x-ray screening labs. Prodding 45 minutes critical care services to this patient. Disposition pending
--- NOTE | 2017-01-29 11:15 | Emergency Department Note ---
Disposition Clinical Impression: SOB (shortness of breath), Hypercarbia Anemia Qualifiers: Anemia type: unspecified type Qualified Code(s): D64.9 - Anemia, unspecified Disposition: Admitted As Inpatient Condition: Good Forms: ED Satisfaction Letter Time of Disposition: 13:10 General Adult HPI - General Chief complaint: ED Shortness of Breath/Dyspnea Stated complaint: ANKITA Time Seen by Provider: 01/29/17 11:01 Source: patient, EMS Mode of arrival: EMS Limitations: no limitations Nursing Notes Reviewed: Yes Vital Signs Reviewed: Yes - History of Present Illness HPI Narrative: 81-year-old female presenting to the emergency department via EMS for chief complaint difficulty in breathing. Patient states for the past week she has had increased shortness of breath along with productive cough. She denies any fevers or chest pain at home. She states she saw her physician on Sunday who gave her a 5 day course of antibiotics but she is unsure what antibiotics they were. She states she completed them but is still not feeling well. Patient has a significant past medical history of COPD and she is currently on 4 L nasal cannula at home all day. Patient also states she has a history of CHF and A. fib she is currently on Eliquis. Patient denies any sick contacts. Pain Scale: 9 - Related Data Home Medications Medication Instructions Recorded Confirmed Aspirin 81 mg PO DAILY 06/20/15 11/02/16 Cyanocobalamin (Vitamin B-12) 1,000 mcg PO DAILY 06/20/15 11/02/16 [B-12] Ferrous Sulfate [Iron] 650 mg PO DAILY 06/20/15 11/02/16 Simvastatin [Zocor] 40 mg PO HS 06/20/15 11/02/16 Labetalol HCl 200 mg PO DAILY 01/26/16 11/02/16 Albuterol Sulfate [Ventolin Hfa] 2 puff IH Q4-6H PRN 11/02/16 11/02/16 Budesonide/Formoterol 160/4.5 2 puff IH BIDR 11/02/16 11/02/16 [Symbicort 160/4.5] Calcitriol [Rocaltrol] 0.25 mcg PO DAILY 11/02/16 11/02/16 Citalopram Hydrobromide [Celexa] 40 mg PO DAILY 09/14/17 09/14/17 Previous Rx's Medication Instructions Recorded Pantoprazole Sodium [Protonix] 40 mg PO BID #60 tablet. 11/08/15 Acetaminophen [Tylenol] 650 mg PO Q6HR PRN tab 11/04/16 Azithromycin [Zithromax] 500 mg PO DAILY #2 tab 11/04/16 Furosemide [Lasix] 20 mg PO BIDDIURETIC tab 11/04/16 predniSONE [PredniSONE] See Taper PO DAILY #30 tablet 11/04/16 Allergies Allergy/AdvReac Type Severity Reaction Status Date / Time Penicillins [PCN] Allergy Hives Verified 01/26/16 11:14 All systems ED: reviewed and negative except as stated. Constitutional: Denies: fever, chills Eyes: Reports: as per HPI ENT ED: Reports: as per HPI Cardiovascular: Denies: chest pain, palpitations Respiratory: Reports: cough, dyspnea Gastrointestinal: Reports: as per HPI Genitourinary: Reports: as per HPI Musculoskeletal: Reports: as per HPI Integumentary: Denies: rash, abrasion Neurological: Reports: as per HPI Psychiatric: Reports: as per HPI Endocrine: Reports: as per HPI Hematological/Lymphatic: Reports: as per HPI Allergic/Immunologic: Reports: as per HPI Past Medical History - Past Medical History Attestation: Yes The following information was validated with the patient. Medical history: Reports: arthritis, atrial fibrillation, CHF, COPD, coronary artery disease, GERD, hyperlipidemia, hypertension, osteoporosis, renal disease , other Surgical history: Reports: appendectomy, cholecystectomy, hysterectomy, other ( Spinal fusion/back surgery, hemorrhoidectomy, last echocardiogram was from June 2015 showing a normal ejection fraction) Psychiatric history: Reports: anxiety, depression MARKER MAKER history: Reports: no MARKER MAKER history - Social History Smoking Status: Former smoker Smokeless Tobacco Status: No Alcohol use: Reports: none Drug use: Reports: none Physical Exam - General Limitations: no limitations General appearance: alert, in no apparent distress - Head Head exam: atraumatic, normocephalic, normal inspection - Eye Eye exam: Present: normal appearance. Absent: scleral icterus, conjunctival injection - Chest Chest inspection: Present: normal inspection, symmetric chest wall rise. Absent : tenderness, rash - Respiratory Respiratory exam: Present: other (Decreased breath sounds anterior and posterior bilaterally) - Cardiovascular Cardiovascular exam: Present: regular rate, irregular rhythm - Abdominal Exam Abdominal exam: Present: soft, Non-Tender. Absent: distention, guarding, rebound - Extremities Exam Extremities exam: Present: normal inspection, full ROM - Neurological Exam Neurological exam: Present: alert, oriented X3 - Psychiatric Psychiatric exam: Present: normal affect, normal mood - Skin Skin exam: Present: warm, intact Course Course Narrative: 81-year-old female presenting to the emergency department for difficulty in breathing. Patient has a known history of COPD and CHF. Patient failed outpatient therapy antibiotics. We will provide the patient with a dose of steroids and breathing treatments here. We will obtain a chest x-ray along with basic lab work including CBC and BMP. We will also obtain an EKG. Patient is alert and oriented 3 in the room with stable vital signs at this time. Oxygen saturation 93-95% on 5 L nasal cannula. Patient agrees with this plan. Disposition was likely admission pending results. - Reevaluation(s) Reevaluation #1: Patient's lab work shows anemia with hemoglobin of 7.6. Patient seems to have chronic anemia. His stool call was completed and was negative for blood. Patient asymptomatic at this time. Patient's lab work also shows hypercarbia with a level of 47. Patient's previous admission shows similar CO2 level. Patient is alert and oriented 3 in the room with stable vital signs at this time. Chest x-ray showed small bilateral pleural effusions. We will provide the patient with 20 of IV Lasix. We will admit the patient at this time for increasing shortness of breath along with the bilateral pleural effusions. The accepting hospitalist is Dr. Sellers. He would like us to also perform an ABG at this time. Time: 13:09 Vital Signs Temperature 98.9 F 01/29/17 10:55 Pulse Rate 79 01/29/17 10:55 Respiratory Rate 24 01/29/17 10:55 Blood Pressure 142/88 01/29/17 10:55 O2 Sat by Pulse Oximetry 96 01/29/17 10:55 Temperature 98.9 F 01/29/17 10:55 Pulse Rate 79 01/29/17 10:55 Respiratory Rate 16 01/29/17 11:27 Blood Pressure 142/88 01/29/17 10:55 O2 Sat by Pulse Oximetry 99 01/29/17 11:27 Oxygen Delivery Oxygen Delivery Nasal Cannula Medical Decision Making - Lab Data Result diagrams: 01/29/17 11:36 01/29/17 11:36 Lab Results 01/29/17 01/29/17 01/29/17 Range/Units 11:36 11:36 12:31 WBC 6.1 (4.3-11.1) K/mcL RBC 2.68 L (3.82-4.97) M/mcL Hgb 7.6 L (11.5-15.4) g/dL Hct 25.7 L (35.3-44.9) % MCV 95.9 (83.0-100.0) fL MCH 28.4 (28.0-33.3) pg MCHC 29.6 L (31.6-35.5) g/dL RDW 15.0 H (11.5-14.5) % Plt Count 170 (140-400) K/mcL MPV 9.5 (9.4-12.4) fL Immature Gran % Test Not Performed Seg Neutrophils % 78.0 % Lymphocytes % 10.0 % Monocytes % 6.0 % Eosinophils % 2.0 % Basophils % 4.0 % Neutrophils # 4.8 (1.6-8.9) K/mcL Lymphocytes # 0.6 (0.6-4.6) K/mcL Monocytes # 0.4 (0.0-1.3) K/mcL Eosinophils # 0.1 (0.0-0.6) K/mcL Basophils # 0.2 (0.0-0.2) K/mcL Platelet Estimate Normal (Normal) Sodium 147 H (136-145) mEq/L Potassium 3.5 (3.5-4.5) mEq/L Chloride 93 L (98-109) mEq/L Carbon Dioxide 47 H* (19-29) mEq/L BUN 22 H (7-20) mg/dL Creatinine 1.11 (0.57-1.11) mg/dL Est GFR ( Amer) 57 L (> 60) Est GFR (Non-Af Amer) 47 L (> 60) BUN/Creatinine Ratio 20 (6-26) Glucose 105 H (70-99) mg/dL Calculated Osmolality 308 H (280-300) Calcium 9.0 (8.6-10.8) mg/dL Stool Occult Blood Negative (Negative) - EKG Data EKG #1 EKG attestation: Yes I reviewed and interpreted this EKG. EKG results narrative: Atrial fibrillation. Rate controlled at 74 bpm. QRS 88, QTC 448. No signs of acute ST segment elevation or ischemia. When compared to previous EKG completed on 11/02/2016 atrial fibrillation noted but no other changes.
[2017-01-29 11:53] LABS: Mean Corpuscular Volume 95.9 fL (83.0-100.0)
[2017-01-29 11:54] LABS: Hematocrit 25.7 % (35.3-44.9); Mean Corpuscular HGB Conc 29.6 g/dL (31.6-35.5); Mean Corpuscular Hemoglobin 28.4 pg (28.0-33.3); Mean Platelet Volume 9.5 fL (9.4-12.4); Platelet Count 170 K/mcL (140-400); Red Blood Count 2.68 M/mcL (3.82-4.97)
[2017-01-29] MEDS ORDERED: Furosemide 20 MG/2 ML VIAL IVP ONE (12:04)
[2017-01-29 12:09] LABS: Potassium 3.5 mEq/L (3.5-4.5)
[2017-01-29 12:14] LABS: Hemoglobin 7.6 g/dL (11.5-15.4)
[2017-01-29 12:35] LABS: Basophils # 0.2 K/mcL (0.0-0.2); Eosinophils # 0.1 K/mcL (0.0-0.6); Lymphocytes # 0.6 K/mcL (0.6-4.6); Monocytes # 0.4 K/mcL (0.0-1.3); Neutrophils # 4.8 K/mcL (1.6-8.9); Platelet Estimate Normal (Normal)
[2017-01-29 13:46] LABS: ABG Base Excess 21 mEq/L (-2 to 3); ABG HCO3 49 mEq/L (21-27); ABG Oxygen Saturation 89 % (95-98); ABG PCO2 91 mmHg (35-45); ABG PH 7.34 pH Units (7.32-7.45); ABG PO2 65 mmHg (85-104); ABG TCO2 52 mEq/L (20-26)
[2017-01-29] MEDS ORDERED: Naloxone 0.4 MG/ML INJ IVP PRN (14:29)
[2017-01-29] MEDS ORDERED: Albuterol 2.5 MG/3 ML NEBULIZER IH PRN (14:31)
[2017-01-29] MEDS ORDERED: Acetaminophen 325 MG TABLET PO PRN (14:33)
--- NOTE | 2017-01-29 15:06 | Internal Med History&Physical ---
Date of Encounter: 01/29/17 Time of Encounter: 15:03 Assessment and Plan (1) Acute and chronic respiratory failure with hypercapnia Current visit: No Status: Acute Patient has been exposed to significant increasing shortness of breath despite the use of oxygen and bronchodilators. Suspect this is related to COPD exacerbation. ABG respiratory acidosis and hypercapnia PCO2 of 91. Place on Bipap - recheck ABG at 20:00 We will obtain influenza swab (2) COPD exacerbation Current visit: No Status: Acute Continue with oxygen and bronchodilators Continue his SPO2 monitoring Steroid to taper (3) Atrial fibrillation Current visit: No Status: Chronic Presently rate is controlled we will continue with our request for anticoagulation Qualifiers: Atrial fibrillation type: chronic Qualified Code(s): I48.2 - Chronic atrial fibrillation (4) CKD (chronic kidney disease) stage 3, GFR 30-59 ml/min Current visit: No Status: Chronic Presently patient creatinine is 1.11 which is improved from previous which was 1.30 in November. We will continue to monitor creatinine Monitor intake and output daily weights Avoid nephrotoxins (5) CHF (congestive heart failure) Current visit: No Status: Chronic 1 we will continue with Lasix Monitor intake and output daily weights Low sodium diet Qualifiers: Congestive heart failure type: diastolic Congestive heart failure chronicity: chronic Qualified Code(s): I50.32 - Chronic diastolic (congestive ) heart failure (6) DVT prophylaxis Current visit: No Status: Acute Patient is on [facility] Internal Medicine - H&P: HPI Chief complaint: SOB Admitted From: Emergency Dept Plans for Post Hospital Care: Home History of present illness: Ms. Hutchinson is a 81 year old female past medical history of arthritis A. fib CHF COPD oxygen dependent CAD GERD hyperlipidemia hypertension CK D stage III GI bleed. According to the patient for the past week and a half she has not been feeling well describing as weak and fatigued general malaise. She did see her primary care physician approximately a week ago was given antibiotics which she states she completed. Over this past week she has been expressing increasing shortness of breath as well as a productive cough of clear sputum. She denies any fevers chills she does have some nausea and decreased appetite. She denies any abdominal pain chest pain or palpitation. She has been sleeping in a chair due to increased shortness of breath she does deny any weight gain or worsening swelling. Denies any sick contacts. She presented to the ER with the above complaints lab work was obtained which did show hemoglobin 7.6 which is stable stool occult was negative ABG does show hypercapnia with PCO2 of 91 pH 7.34 PO2 65 bicarbonate is 49. Chest x-ray did show small bilateral pleural effusion as well as atelectasis. She was given breathing treatments and Lasix and steroids recently improved and she has been admitted for further workup evaluation. Presently patient is on. The respiratory distress denies any chest pain or shortness of breath at this time. She is hemodynamically stable at this time. It reduces Dr. Sellers who agrees with plan. Past Med Surg Social Fam HX - Past Medical History Medical history: arthritis, atrial fibrillation, CHF, COPD, coronary artery disease, GERD, hyperlipidemia, hypertension, osteoporosis, renal disease, other Psychiatric history: anxiety, depression - Past Surgical History Surgical History: appendectomy, cholecystectomy, hysterectomy, other (Spinal fusion/back surgery, hemorrhoidectomy, last echocardiogram was from June 2015 showing a normal ejection fraction) - Social History Smoking Status: Former smoker Smokeless Tobacco Status: No Alcohol use: none Drug use: none - Family History Mother Adopted: No Family Member Ethnicity: Non- Twin of Family Member: Yes, Fraternal Living Status: Hx Family Cardiac Disorders: Yes (pacemaker, CHF) Hx Family Respiratory Disorders: No Hx Family Cancer: Yes (colon cancer) Hx Family GI Disorders: Yes Hx Family Endocrine Disorder: No Hx Family Neuromuscular Disorders: No Hx Family Neurologic Disorders: No Hx Family HEENT Disorders: Yes (Swallowing issues) Hx Family Autoimmune Disorders: No Internal Medicine - H&P: Meds Aspirin 81 mg PO DAILY 06/20/15 [History] Cyanocobalamin (Vitamin B-12) [B-12] 1,000 mcg PO DAILY 06/20/15 [History] Simvastatin [Zocor] 40 mg PO HS 06/20/15 [History] Pantoprazole Sodium [Protonix] 40 mg PO BID #60 tablet. 11/08/15 [Rx] Labetalol HCl 200 mg PO DAILY 01/26/16 [History] Albuterol Sulfate [Ventolin Hfa] 2 puff IH Q4-6H PRN 11/02/16 [History] Budesonide/Formoterol 160/4.5 [Symbicort 160/4.5] 2 puff IH BIDR 11/02/16 [ History] Calcitriol [Rocaltrol] 0.25 mcg PO DAILY 11/02/16 [History] Citalopram Hydrobromide [Celexa] 40 mg PO DAILY 11/02/16 [History] Acetaminophen [Tylenol] 650 mg PO Q6HR PRN tab 11/04/16 [Rx] Apixaban [Eliquis] 5 mg PO BID 01/29/17 [History] Cholecalciferol (Vitamin D3) [Vitamin D] 1,000 unit PO DAILY 01/29/17 [History] Furosemide [Lasix] 40 mg PO BID 01/29/17 [History] 3 Allergy/AdvReac Type Severity Reaction Status Date / Time Penicillins [PCN] Allergy Hives Verified 01/26/16 11:14 All Systems PM: A 10-system review of systems was performed and is negative for pertinent findings except as documented above in the HPI. - Constitutional Constitutional: fatigue, malaise, no chills, no fever(s), no night sweats - EENT Eyes: no change in vision, no discharge, no pain, no photophobia Nose, mouth and throat: no dysphagia, no nasal discharge, no neck pain, no sore throat - Cardiovascular Cardiovascular ROS IM: dyspnea, dyspnea on exertion, no chest pain, no diaphoresis, no lightheadedness, no palpitations, no syncope - Respiratory Respiratory: cough, dyspnea, excessive phlegm production - Gastrointestinal Gastrointestinal: no abdominal pain, no diarrhea, no hematemesis, no hematochezia, no melena, no nausea, no vomiting - Genitourinary Genitourinary: no change in urinary stream, no dysuria, no flank pain, no hematuria - Musculoskeletal Musculoskeletal ROS IM: no numbness, no tingling - Integumentary Integumentary IM: no rash, no unusual bruising - Neurological Neurological ROS: no confusion, no convulsions, no focal weakness, no numbness, no tingling, no tremor(s) - Hematologic/Lymphatic Hematologic/Lymphatic: no easy bruising - Constitutional Vitals: Temp Pulse Resp BP Pulse Ox 98.9 F 79 16 142/88 99 01/29/17 10:55 01/29/17 10:55 01/29/17 11:27 01/29/17 10:55 01/29/17 11:27 General appearance: Present: A&O X 3 - Head Head exam: Present: atraumatic, normocephalic - Eye Eye exam: Present: PERRL, conjuntiva pink, sclera anicteric Pupils: Present: PERRL - Neck Neck exam general surgery: Present: supple, trachea midline. Absent: lymphadenopathy - Respiratory Respiratory exam: Present: rhonchi. Absent: accessory muscle use, rales, wheezes - Cardiovascular Cardiovascular exam: Present: RRR, +S1, +S2. Absent: diastolic murmur, gallop, rubs, systolic murmur - GI/Abdominal GI/Abdominal exam: Present: normal bowel sounds, soft, no peritoneal signs. Absent: distended, tenderness - Extremities Exam Extremities exam: Present: warm, radial pulses palpable and symmetrical. Absent : calf tenderness, cyanotic, pedal edema - Neurological Exam Neurological exam: Present: CN II-XII intact, oriented X3, no focal deficits. Absent: pronater drift, facial droop, speech deficit - Skin Skin exam: Present: dry, intact Internal Med - H&P Results - Labs CBC & Chem 7: 01/29/17 11:36 01/29/17 11:36 - ABG Interpretation ABG results: PH 7.34 PCO2 91 PO2 65 bicarbonate 49 Interpretation: respiratory acidosis - EKG Data Prior EKG available for review: yes When compared to previous EKG: there is no significant change - Diagnostic Studies Other Images Additional comments: Chest X-Ray 01/29/17 11:01 IMPRESSION: Small bilateral pleural effusions along with mild bibasilar likely atelectasis. D/ /29/2017 11:43:38 Judd Ferguson MD / luis enrique Interpreting Provider: Judd Ferguson MD
[2017-01-29] MEDS: Ipratropium/Albuterol Neb 3 ML IH SCH ×3 (15:47→23:14)
[2017-01-29] MEDS: Furosemide 40 MG TABLET PO SCH (17:31)
[2017-01-29] MEDS: Budesonide/Formoterol 160/4.5 MDI IH SCH (19:33)
--- NOTE | 2017-01-29 20:03 | Event Note ---
Date of Encounter: 01/29/17 Time of Encounter: 18:00 Discussed with GISELLE and agree with assessment and plan. Continue management for COPD exacerbation
[2017-01-29 20:33] LABS: ABG Base Excess 18 mEq/L (-2 to 3); ABG HCO3 46 mEq/L (21-27); ABG Oxygen Saturation 31 % (95-98); ABG PCO2 83 mmHg (35-45); ABG PH 7.35 pH Units (7.32-7.45); ABG PO2 22 mmHg (85-104); ABG TCO2 49 mEq/L (20-26)
[2017-01-29] MEDS: APIXABAN 5 MG TABLET PO SCH (20:58)
[2017-01-29 21:08] LABS: ABG Base Excess 21 mEq/L (-2 to 3); ABG HCO3 48 mEq/L (21-27); ABG Oxygen Saturation 95 % (95-98); ABG PCO2 74 mmHg (35-45); ABG PH 7.42 pH Units (7.32-7.45); ABG PO2 80 mmHg (85-104); ABG TCO2 51 mEq/L (20-26)
[2017-01-30] MEDS: Ipratropium/Albuterol Neb 3 ML IH SCH ×5 (03:29→19:50)
[2017-01-30] MEDS: Budesonide/Formoterol 160/4.5 MDI IH SCH ×2 (07:29→19:51)
--- NOTE | 2017-01-30 08:29 | Internal Med Progress Note ---
Addendum entered and electronically signed by Eduardo Prasad MD 02/04 13:27: acute hypoxic hypercapnic resp failur secondary to acute diastolic CHF exacerbation with bilateral pleural effusions continue lasix IV start prednisone and discontinue solumedrol Original Note: <Eduardo Prasad - Last Filed: 01/30/17 13:25> Date of Encounter: 01/30/17 - Constitutional Vitals: Temp Pulse Resp BP Pulse Ox 98.2 F 67 18 115/61 92 01/30/17 11:57 01/30/17 11:57 01/30/17 12:06 01/30/17 11:57 01/30/17 12:06 Internal Medicine: Result - Labs CBC & Chem 7: 01/29/17 11:36 01/29/17 11:36 - ABG Interpretation ABG results: ABG ABG pH 7.42 pH Units (7.32-7.45) 01/29/17 21:02 ABG pCO2 74 mmHg (35-45) H* 01/29/17 21:02 ABG pO2 80 mmHg (85-104) L D 01/29/17 21:02 ABG O2 Saturation 95 % (95-98) 01/29/17 21:02 Consult Discharge Plan - Plan Referrals: Francisco Javier Torres DO [Resident] - (please call an appt. upon d/c) - Attending Attestation BIPAP qualification tonight I examined this patient and my medical decision-making was reviewed with the Resident Physician. I agree with the documented findings, disposition and treatment plan as described except to the extent set forth below. <Ricardo Sheikh - Last Filed: 01/30/17 14:08> Date of Encounter: 01/30/17 Time of Encounter: 08:00 - Assessment and plan (1) Acute and chronic respiratory failure with hypercapnia Current Visit: No Status: Acute Assessment and plan: Presented with SOB and productive cough. CXR on 01/29/17: small bilateral effusions along with mild bibasilar likely atelectasis. Laboratory values revealed a CO2 level of 47. ABG was performed, revealed a PCO2 of 74, PaO2 of 80, total CO2 of 51, and a bicarbonate of 48. Upon arrival, patient was given DuoNeb 9mL, prednisone 60 mg by mouth, and Lasix 20 mg IV; condition improved. Plan: -Proventil neb 2.5 mg Q2 -Duoneb 3ml Q4 -Lasix 40 mg PO BID -Solumedrol 60 mg IV daily -O2 via NC (2) Atrial fibrillation Current Visit: No Status: Chronic Assessment and plan: EKG on 01/19/17 demonstrated atrial fibrillation, unchanged from previos EKG. Currently rate controlled at 68 bpm. Plan: -Continue Eliquis. -Continuous cardiac monitoring. Qualifiers: Atrial fibrillation type: chronic Qualified Code(s): I48.2 - Chronic atrial fibrillation (3) CKD (chronic kidney disease) stage 3, GFR 30-59 ml/min Current Visit: No Status: Chronic Assessment and plan: Patient's creatinine is 1.11. Improved from 1.30 in November. -Continue to monitor creatinine. -Repeat a.m. labs. -Monitor I&O, daily weights -Avoid nephrotoxins. (4) CHF exacerbation Current Visit: No Status: Acute Assessment and plan: Strict I&Os, daily weights. -Low sodium diet. -Continuous telemetry. Qualifiers: Congestive heart failure type: unspecified congestive heart failure type Qualified Code(s): I50.9 - Heart failure, unspecified (5) DVT prophylaxis Current Visit: No Status: Acute Assessment and plan: Eliquis - Subjective Interval history: 81-year-old female. Presented to the emergency department on 01/29/17 with a chief complaint of difficulty breathing. Patient reported that for the past week, she had increasing shortness of breath, weakness, and malaise along with productive cough with clear-colored sputum. Also reported having some nausea and decreased appetite. She saw her primary care physician on Sunday, who gave her a 5 day course of antibiotics. She is unsure of what antibiotics they were. She completed the course of antibiotics, but was still symptomatic. On arrival, patient was tachypneic with a respiratory rate of 24. Steroids and breathing treatments upon arrival. Hypercarbia with a level of 47. Previous admission shows a similar CO2 level. Chest x-ray demostrated presence of small bilateral pleural effusions. She was given 20 mg of IV Lasix. Past medical history of CHF, COPD, and atrial fibrillation. Currently on 4 L of oxygen via nasal cannula at home all day. On Elliquis for atrial fibrillation. Denied any sick contacts. Lab work demonstrated hemoglobin of 7.6. Patient has chronic anemia. Stool occult negative. EKG demonstrated the presence of atrial fibrillation with a rate of 74 bpm. No changes compared to the last EKG. Patient was placed on continuous cardiac monitoring. Patient was seen and examined at bedside this morning. She reports that she is feeling better than she did on presentation. Currently on O2 via NC. - Constitutional Vitals: Temp Pulse Resp BP Pulse Ox 98.6 F 68 18 142/57 92 01/30/17 08:11 01/30/17 08:11 01/30/17 08:11 01/30/17 08:11 01/30/17 08:11 General appearance: Present: A&O X 3 - Head Head exam: Present: atraumatic, normocephalic - Eye Eye exam: Present: PERRL, conjuntiva pink, sclera anicteric Pupils: Present: PERRL - Neck Neck exam general surgery: Present: supple, trachea midline. Absent: lymphadenopathy - Respiratory Respiratory exam: Present: decreased breath sounds, prolonged expiratory phase, wheezes. Absent: accessory muscle use, rales, rhonchi - Cardiovascular Cardiovascular exam: Present: RRR, +S1, +S2. Absent: diastolic murmur, gallop, rubs, systolic murmur - Extremities Exam Extremities exam: Present: warm, radial pulses palpable and symmetrical. Absent : calf tenderness, cyanotic, pedal edema - Skin Skin exam: Present: dry, intact Internal Medicine: Result - Labs CBC & Chem 7: 01/29/17 11:36 01/29/17 11:36 - ABG Interpretation ABG results: ABG ABG pH 7.42 pH Units (7.32-7.45) 01/29/17 21:02 ABG pCO2 74 mmHg (35-45) H* 01/29/17 21:02 ABG pO2 80 mmHg (85-104) L D 01/29/17 21:02 ABG O2 Saturation 95 % (95-98) 01/29/17 21:02
[2017-01-30] MEDS ORDERED: methylPREDNISolone 125 MG/2 ML VIAL IVP SCH (09:00)
[2017-01-30] MEDS ORDERED: predniSONE 20 MG TABLET PO SCH (09:00)
[2017-01-30] MEDS: Furosemide 40 MG TABLET PO SCH ×2 (09:43→16:15)
[2017-01-30] MEDS: APIXABAN 5 MG TABLET PO SCH ×2 (09:43→21:37)
[2017-01-30] MEDS: Cholecalciferol (D-3) 1,000 UNIT TABLET PO SCH (09:44)
[2017-01-30] MEDS: Cyanocobalamin (B-12) 1,000 MCG TABLET PO SCH (09:44)
[2017-01-30] MEDS: Aspirin 81 MG TAB.CHEW PO SCH (09:44)
[2017-01-30] MEDS: Saliva Stimulant 100ml BOTTLE PO PRN ×2 (12:33→16:15)
--- NOTE | 2017-01-30 14:12 | Electrocardiograph Report ---
[facility] Test Date: 2017-01-29 Pat Name: Hilda Hutchinson Department: 103 Room: 2A16 Gender: F [employer]: : 1935 Requested By: Ashia Ramos Order Number: [id number] Reading MD: Ron Hernandez MD Measurements Intervals Glide Rate: 74 P: W[place]: 0 QRS: 28 QRSD: 88 T: 45 QT: 421 QTc: 448 Interpretive Statements ATRIAL FIBRILLATION ABNORMAL RHYTHM ECG Electronically Signed On 01-30-2017 14:10:51 EST by Ron Hernandez MD
[2017-01-30] MEDS: Loratadine 10 MG TABLET PO SCH (16:15)
[2017-01-30 18:55] LABS: Bilirubin,Urine Negative (Negative); Blood,Urine Small (Negative); Clarity,Urine Clear (Clear); Color,Urine Yellow (Yellow); Glucose,Urine (UA) Normal (Normal); Ketones,Urine Negative (Negative); Leukocyte Esterase,Urine Negative (Negative); Nitrite,Urine Negative (Negative); Protein,Urine Negative (Neg-Trace); Specific Gravity,Urine 1.012 (1.010-1.025); Urobilinogen,Urine Normal (Normal)
[2017-01-30 18:57] LABS: Bacteria,Urine None Seen per hpf (None-Few); Hyaline Casts,Urine None Seen per lpf (None-Few); Squamous Epithelial Cell,Urine None Seen per lpf (None-Few); WBC,Urine 0-3 per hpf (0-3)
[2017-01-31] MEDS: Ipratropium/Albuterol Neb 3 ML IH SCH ×6 (00:12→20:07)
[2017-01-31 05:12] LABS: Hematocrit 25.9 % (35.3-44.9); Hemoglobin 7.7 g/dL (11.5-15.4); Mean Corpuscular HGB Conc 29.7 g/dL (31.6-35.5); Mean Corpuscular Hemoglobin 27.9 pg (28.0-33.3); Mean Corpuscular Volume 93.8 fL (83.0-100.0); Mean Platelet Volume 10.1 fL (9.4-12.4); Platelet Count 198 K/mcL (140-400); Red Blood Count 2.76 M/mcL (3.82-4.97); Red Cell Distribution Width 15.2 % (11.5-14.5)
[2017-01-31 05:29] LABS: BUN/Creatinine Ratio 21 (6-26); Blood Urea Nitrogen 22 mg/dL (7-20); Calcium 8.8 mg/dL (8.6-10.8); Chloride 89 mEq/L (98-109); Glucose 101 mg/dL (70-99); Osmolality,Calculated 305 (280-300); Potassium 3.2 mEq/L (3.5-4.5); Sodium 146 mEq/L (136-145); eGFR For African Americans > 60 (> 60); eGFR For Non-African Americans 50 (> 60)
[2017-01-31 05:30] LABS: Carbon Dioxide 46 mEq/L (19-29)
[2017-01-31] MEDS: APIXABAN 5 MG TABLET PO SCH ×2 (08:02→20:57)
[2017-01-31] MEDS: Cholecalciferol (D-3) 1,000 UNIT TABLET PO SCH (08:02)
[2017-01-31] MEDS: Cyanocobalamin (B-12) 1,000 MCG TABLET PO SCH (08:02)
[2017-01-31] MEDS: Furosemide 40 MG TABLET PO SCH ×2 (08:02→15:15)
[2017-01-31] MEDS: Aspirin 81 MG TAB.CHEW PO SCH (08:03)
[2017-01-31] MEDS: Loratadine 10 MG TABLET PO SCH (08:03)
[2017-01-31] MEDS: Budesonide/Formoterol 160/4.5 MDI IH SCH ×2 (08:19→20:07)
[2017-01-31] MEDS ORDERED: predniSONE 20 MG TABLET PO SCH ×2 (09:00→09:45)
--- NOTE | 2017-01-31 10:02 | Internal Med Progress Note ---
<Ricardo Sheikh - Last Filed: 01/31/17 10:07> Date of Encounter: 01/31/17 Time of Encounter: 08:15 - Assessment and plan (1) Acute and chronic respiratory failure with hypercapnia Current Visit: No Status: Acute Assessment and plan: Presented with SOB and productive cough. CXR on 01/29/17: small bilateral effusions along with mild bibasilar likely atelectasis. Laboratory values revealed a CO2 level of 47. ABG was performed, revealed a PCO2 of 74, PaO2 of 80, total CO2 of 51, and a bicarbonate of 48. Upon arrival, patient was given DuoNeb 9mL, prednisone 60 mg by mouth, and Lasix 20 mg IV; condition improved. Plan: -Patient was started on prednisone 40 mg by mouth daily. -Proventil neb 2.5 mg Q2 -Duoneb 3ml Q4 -Lasix 40 mg PO BID -Solumedrol 60 mg IV daily -O2 via NC (2) Hallucination Current Visit: Yes Status: Acute Assessment and plan: Patient reports having hallucinations this morning. Describes seeing a man with no arms, with fake wooden arms attempting to sell her dresses. Patient denies previous episode of hallucinations. Reports that she has not slept for the past week. Plan: -Ativan 1 mg IV every 6 when necessary (3) Conjunctivitis Current Visit: Yes Status: Acute Assessment and plan: Patient noted to have swelling, redness, crusting on the left eye. -Consistent with conjunctivitis. -Ciprofloxacin ophthalmic solution for left eye 2 drops every 4 hours (4) Atrial fibrillation Current Visit: No Status: Chronic Assessment and plan: EKG on 01/19/17 demonstrated atrial fibrillation, unchanged from previos EKG. Heart rate was elevated this morning at 101 bpm. Plan: -Continue Eliquis. -Continuous cardiac monitoring. -Patient's labetalol has been switched to 100 mg twice a day from 200 mg daily. Qualifiers: Atrial fibrillation type: chronic Qualified Code(s): I48.2 - Chronic atrial fibrillation (5) CKD (chronic kidney disease) stage 3, GFR 30-59 ml/min Current Visit: No Status: Chronic Assessment and plan: Patient's creatinine is 1.05. -Continue to monitor creatinine. -Repeat a.m. labs. -Monitor I&O, daily weights -Avoid nephrotoxins. (6) CHF exacerbation Current Visit: No Status: Acute Assessment and plan: Strict I&Os, daily weights. -Low sodium diet. -Continuous telemetry. Qualifiers: Congestive heart failure type: unspecified congestive heart failure type Qualified Code(s): I50.9 - Heart failure, unspecified (7) DVT prophylaxis Current Visit: No Status: Acute Assessment and plan: Eliquis - Subjective Interval history: Patient was seen and examined at bedside this morning. Reports hallucinations earlier this morning. She stated that she saw a man with wooden arms attempting to sell her dresses. She states that she recognizes that this was a hallucination. She admits that she has not slept for approximately one week. Patient denies having any episodes like this before. Denies having any acute respiratory distress. Patient noted to have swelling and crusting on the left eye consistent with conjunctivitis. Currently on O2 via NC. - Constitutional Vitals: Temp Pulse Resp BP Pulse Ox 98.4 F 101 18 168/61 91 01/31/17 08:10 01/31/17 08:10 01/31/17 08:21 01/31/17 08:10 01/31/17 08:21 General appearance: Present: A&O X 3 - Head Head exam: Present: atraumatic, normocephalic - Eye Eye exam: Present: PERRL, conjuntiva pink, sclera anicteric Pupils: Present: PERRL - Neck Neck exam general surgery: Present: supple, trachea midline. Absent: lymphadenopathy - Respiratory Respiratory exam: Present: decreased breath sounds, prolonged expiratory phase, wheezes. Absent: accessory muscle use, rales, rhonchi - Cardiovascular Cardiovascular exam: Present: RRR, +S1, +S2. Absent: diastolic murmur, gallop, rubs, systolic murmur - Extremities Exam Extremities exam: Present: warm, radial pulses palpable and symmetrical. Absent : calf tenderness, cyanotic, pedal edema - Skin Skin exam: Present: dry, intact Internal Medicine: Result - Labs CBC & Chem 7: 01/31/17 04:45 01/31/17 04:45 Labs: Short CBC 01/31/17 Range/Units 04:45 WBC 6.9 (4.3-11.1) K/mcL Hgb 7.7 L (11.5-15.4) g/dL Hct 25.9 L (35.3-44.9) % Plt Count 198 (140-400) K/mcL [facility] 01/31/17 04:45 Sodium 146 H Potassium 3.2 L Chloride 89 L Carbon Dioxide 46 H* BUN 22 H Creatinine 1.05 Glucose 101 H Calcium 8.8 Urine 01/30/17 Range/Units 18:36 Urine Color Yellow (Yellow) Urine Clarity Clear (Clear) Urine pH 7.0 (5.0-8.0) pH Units Ur Specific Dendron 1.012 (1.010-1.025) Urine Protein Negative (Neg-Trace) mg/dL Urine Glucose (UA) Normal (Normal) mg/dL - ABG Interpretation ABG results: ABG ABG pH 7.42 pH Units (7.32-7.45) 01/29/17 21:02 ABG pCO2 74 mmHg (35-45) H* 01/29/17 21:02 ABG pO2 80 mmHg (85-104) L D 01/29/17 21:02 ABG O2 Saturation 95 % (95-98) 01/29/17 21:02 Consult Discharge Plan - Plan Referrals: Francisco Javier Torres DO [Resident] - (please call an appt. upon d/c) <Eduardo Prasad H - Last Filed: 01/31/17 10:48> Date of Encounter: 01/31/17 - Constitutional Vitals: Temp Pulse Resp BP Pulse Ox 98.4 F 101 18 168/61 91 01/31/17 08:10 01/31/17 08:10 01/31/17 08:21 01/31/17 08:10 01/31/17 08:21 Internal Medicine: Result - Labs CBC & Chem 7: 01/31/17 04:45 01/31/17 04:45 Labs: Short CBC 01/31/17 Range/Units 04:45 WBC 6.9 (4.3-11.1) K/mcL Hgb 7.7 L (11.5-15.4) g/dL Hct 25.9 L (35.3-44.9) % Plt Count 198 (140-400) K/mcL [facility] 01/31/17 04:45 Sodium 146 H Potassium 3.2 L Chloride 89 L Carbon Dioxide 46 H* BUN 22 H Creatinine 1.05 Glucose 101 H Calcium 8.8 Urine 01/30/17 Range/Units 18:36 Urine Color Yellow (Yellow) Urine Clarity Clear (Clear) Urine pH 7.0 (5.0-8.0) pH Units Ur Specific Dendron 1.012 (1.010-1.025) Urine Protein Negative (Neg-Trace) mg/dL Urine Glucose (UA) Normal (Normal) mg/dL - ABG Interpretation ABG results: ABG ABG pH 7.46 pH Units (7.32-7.45) H 01/31/17 10:05 ABG pCO2 74 mmHg (35-45) H* 01/31/17 10:05 ABG pO2 64 mmHg (85-104) L 01/31/17 10:05 ABG O2 Saturation 92 % (95-98) L 01/31/17 10:05 - Attending Attestation acute encephalopathy secondary to acute hypoxic hypercapnic resp failur due to acute diastolic CHF exacerbation with bilateral pleural effusions and acute COPD exacerbation due to acute bronchitis possibly viral continue lasix Decrease dose of prednisone as the steroids can cause also hallucinations I examined this patient and my medical decision-making was reviewed with the Resident Physician. I agree with the documented findings, disposition and treatment plan as described except to the extent set forth below.
[2017-01-31 10:22] LABS: ABG Base Excess 26 mEq/L (-2 to 3); ABG HCO3 53 mEq/L (21-27); ABG Oxygen Saturation 92 % (95-98); ABG PCO2 74 mmHg (35-45); ABG PH 7.46 pH Units (7.32-7.45); ABG PO2 64 mmHg (85-104); ABG TCO2 55 mEq/L (20-26)
[2017-01-31] MEDS: *HR* LORazepam 2 MG/ML VIAL IVP PRN (11:21)
[2017-01-31] MEDS: Ciprofloxacin OPTH Soln 2.5 ML BOTTLE LEFT EYE SCH ×5 (11:21→23:19)
[2017-01-31 14:25] LABS: Albumin 3.6 g/dL (3.5-5.0); Albumin/Globulin Ratio 1.1 (1.1-2.2); Bilirubin,Direct 0.4 mg/dL (0.0-0.5); Bilirubin,Indirect 0.4 mg/dL (0.0-1.2); Bilirubin,Total 0.8 mg/dL (0.2-1.2); Globulin 3.4 g/dL (2.4-3.5)
[2017-01-31] MEDS: MethylPREDNISolone 40 MG/ML VIAL IVP SCH ×2 (15:15→23:09)
[2017-01-31] MEDS: Cefepime HCl 2,000 MG in Water for inj. (sterile) 20 ML IVP SCH (15:15)
[2017-01-31] MEDS: Levofloxacin 750 MG/150 ML 750 MG/150 ML BAG IVPB SCH (15:16)
[2017-01-31] MEDS: Clindamycin 600 MG/50 ML 600 MG/50 ML IV.SOLN IVPB SCH ×2 (15:16→23:09)
[2017-02-01] MEDS: Ipratropium/Albuterol Neb 3 ML IH SCH ×7 (00:52→23:16)
[2017-02-01] MEDS: Cefepime HCl 2,000 MG in Water for inj. (sterile) 20 ML IVP SCH ×2 (04:14→15:48)
[2017-02-01] MEDS: Ciprofloxacin OPTH Soln 2.5 ML BOTTLE LEFT EYE SCH ×6 (04:15→23:49)
[2017-02-01] MEDS: Clindamycin 600 MG/50 ML 600 MG/50 ML IV.SOLN IVPB SCH ×3 (05:36→23:48)
[2017-02-01 06:30] LABS: ABG Base Excess 26 mEq/L (-2 to 3); ABG HCO3 55 mEq/L (21-27); ABG Oxygen Saturation 95 % (95-98); ABG PCO2 93 mmHg (35-45); ABG PH 7.38 pH Units (7.32-7.45); ABG PO2 85 mmHg (85-104); ABG TCO2 58 mEq/L (20-26); Blood Gas PEEP 6 cm H2O
[2017-02-01 07:31] LABS: Hematocrit 28.1 % (35.3-44.9); Hemoglobin 8.2 g/dL (11.5-15.4); Mean Corpuscular HGB Conc 29.2 g/dL (31.6-35.5); Mean Corpuscular Hemoglobin 27.3 pg (28.0-33.3); Mean Corpuscular Volume 93.7 fL (83.0-100.0); Mean Platelet Volume 10.1 fL (9.4-12.4); Platelet Count 200 K/mcL (140-400); Red Cell Distribution Width 14.7 % (11.5-14.5)
[2017-02-01 07:47] LABS: Calcium 8.6 mg/dL (8.6-10.8); Potassium 3.8 mEq/L (3.5-4.5)
[2017-02-01] MEDS: Budesonide/Formoterol 160/4.5 MDI IH SCH ×2 (07:47→20:27)
[2017-02-01] MEDS: MethylPREDNISolone 40 MG/ML VIAL IVP SCH ×3 (10:23→23:49)
[2017-02-01] MEDS: Furosemide 40 MG TABLET PO SCH ×2 (12:43→15:48)
[2017-02-01] MEDS: Aspirin 81 MG TAB.CHEW PO SCH (12:50)
[2017-02-01] MEDS: APIXABAN 5 MG TABLET PO SCH ×2 (12:50→19:57)
[2017-02-01] MEDS: Cholecalciferol (D-3) 1,000 UNIT TABLET PO SCH (12:50)
[2017-02-01] MEDS: Cyanocobalamin (B-12) 1,000 MCG TABLET PO SCH (12:50)
[2017-02-01] MEDS: Loratadine 10 MG TABLET PO SCH (12:50)
--- NOTE | 2017-02-01 14:44 | Internal Med Progress Note ---
<Ricardo Sheikh - Last Filed: 02/01/17 14:57> Date of Encounter: 02/01/17 Time of Encounter: 10:00 - Assessment and plan (1) Acute and chronic respiratory failure with hypercapnia Current Visit: No Status: Acute Assessment and plan: Presented with SOB and productive cough. -CXR on 01/29/17: small bilateral effusions along with mild bibasilar likely atelectasis. -Laboratory values revealed a CO2 level of 47. -ABG was performed, revealed a PCO2 of 74, PaO2 of 80, total CO2 of 51, and a bicarbonate of 48. -Upon arrival, patient was given DuoNeb 9mL, prednisone 60 mg by mouth, and Lasix 20 mg IV; condition improved. -This morning, arterial blood gas revealed a CO2 of 93. -Patient was placed on BiPAP. -Patient will need BiPAP qualification. Plan: -Proventil neb 2.5 mg Q2 -Duoneb 3ml Q4 -BiPAP (2) Hallucination Current Visit: Yes Status: Acute Assessment and plan: -Described seeing a man with no arms, with fake wooden arms attempting to sell her dresses. -Patient denies previous episode of hallucinations. -Reports that she has not slept for the past week. -This morning, described the presence of clocks without faces dancing in the room. -Patient seems to be aware that these hallucinations are not real. -Patient alert and oriented; Full sentences. (3) Conjunctivitis Current Visit: Yes Status: Acute Assessment and plan: Patient noted to have swelling, redness, crusting on the left eye. -Consistent with conjunctivitis. -Ciprofloxacin ophthalmic solution for left eye 2 drops every 4 hours (4) Atrial fibrillation Current Visit: No Status: Chronic Assessment and plan: EKG on 01/19/17 demonstrated atrial fibrillation, unchanged from previous EKG. Heart rate was well controlled at 61. Plan: -Continue Eliquis. -Continuous cardiac monitoring. -Patient's labetalol has been switched to 100 mg twice a day from 200 mg daily. Qualifiers: Atrial fibrillation type: chronic Qualified Code(s): I48.2 - Chronic atrial fibrillation (5) CKD (chronic kidney disease) stage 3, GFR 30-59 ml/min Current Visit: No Status: Chronic Assessment and plan: Patient's creatinine is 1.05. -Continue to monitor creatinine. -Repeat a.m. labs. -Monitor I&O, daily weights -Avoid nephrotoxins. (6) CHF exacerbation Current Visit: No Status: Acute Assessment and plan: Strict I&Os, daily weights. -Low sodium diet. -Continuous telemetry. Qualifiers: Congestive heart failure type: unspecified congestive heart failure type Qualified Code(s): I50.9 - Heart failure, unspecified (7) DVT prophylaxis Current Visit: No Status: Acute Assessment and plan: Rosa Mariaquis (8) Dysphagia Current Visit: Yes Status: Acute Assessment and plan: Patient had difficulty swallowing last night. Oral meds to be crushed and mixed with stools. Patient was evaluated by speech therapy today; stated that patient is okay to eat. Recommends soft diet. - Subjective Interval history: Patient was seen and examined at bedside this morning. Reports that she is still having hallucinations. Describes the presence of clocks without faces dancing around the room. Patient is aware that these are hallucinations and are not real. Patient is alert and oriented and is able to speak in full sentences without difficulty. Last night, patient had difficulty swallowing; her PO meds had to be crushed and mixed with applesauce. Patient was seen by speech therapy today; stated that patient may eat a soft diet. Had an elevated CO2 on ABG this morning at 96; was placed on BiPAP; condition improved. Denies feeling any pain. - Constitutional Vitals: Temp Pulse Resp BP Pulse Ox 97.3 F L 66 16 152/89 98 02/01/17 10:49 02/01/17 10:49 02/01/17 11:23 02/01/17 10:49 02/01/17 11:23 General appearance: Present: A&O X 3 - Head Head exam: Present: atraumatic, normocephalic - Eye Eye exam: Present: conjunctival injection, periorbital swelling Pupils: Present: PERRL - Neck Neck exam general surgery: Present: supple, trachea midline. Absent: lymphadenopathy - Respiratory Respiratory exam: Present: decreased breath sounds, prolonged expiratory phase, wheezes. Absent: accessory muscle use, rales, rhonchi - Cardiovascular Cardiovascular exam: Present: +S1, +S2. Absent: diastolic murmur, gallop, rubs , systolic murmur - Skin Skin exam: Present: dry, intact Internal Medicine: Result - Labs CBC & Chem 7: 02/01/17 06:47 02/01/17 06:47 Labs: Short CBC 02/01/17 Range/Units 06:47 WBC 6.0 (4.3-11.1) K/mcL Hgb 8.2 L (11.5-15.4) g/dL Hct 28.1 L (35.3-44.9) % Plt Count 200 (140-400) K/mcL BMP 02/01/17 06:47 Sodium 147 H Potassium 3.8 Chloride 89 L Carbon Dioxide 49 H* BUN 27 H Creatinine 1.19 H Glucose 131 H Calcium 8.6 - ABG Interpretation ABG results: ABG ABG pH 7.38 pH Units (7.32-7.45) 02/01/17 06:21 ABG pCO2 93 mmHg (35-45) H* 02/01/17 06:21 ABG pO2 85 mmHg (85-104) 02/01/17 06:21 ABG O2 Saturation 95 % (95-98) 02/01/17 06:21 - Impressions Impressions Chest CT 01/31/17 13:53 IMPRESSION: 1. This evaluation is notably limited secondary to respiratory motion. There is peripheral nodular consolidation in the lung parenchyma, which could represent an acute infectious or inflammatory process. 2. Small bilateral pleural effusions as well as interlobular septal thickening are identified, which can be seen in the setting of mild fluid overload/ CHF. 3. A repeat evaluation should be considered when the patient's clinical condition makes her more able to breath-hold on the CT scanner. D/ / 01/31/2017 15:43:57 Braulio Crespo / zayra Interpreting Provider: Brauilo Crespo Consult Discharge Plan - Plan Referrals: Francisco Javier Torres DO [Resident] - (please call an appt. upon d/c) <Eduardo Prasad H - Last Filed: 02/01/17 15:11> Date of Encounter: 02/01/17 - Constitutional Vitals: Temp Pulse Resp BP Pulse Ox 97.3 F L 66 16 152/89 98 02/01/17 10:49 02/01/17 10:49 02/01/17 11:23 02/01/17 10:49 02/01/17 11:23 Internal Medicine: Result - Labs CBC & Chem 7: 02/01/17 06:47 02/01/17 06:47 Labs: Short CBC 02/01/17 Range/Units 06:47 WBC 6.0 (4.3-11.1) K/mcL Hgb 8.2 L (11.5-15.4) g/dL Hct 28.1 L (35.3-44.9) % Plt Count 200 (140-400) K/mcL BMP 02/01/17 06:47 Sodium 147 H Potassium 3.8 Chloride 89 L Carbon Dioxide 49 H* BUN 27 H Creatinine 1.19 H Glucose 131 H Calcium 8.6 - ABG Interpretation ABG results: ABG ABG pH 7.38 pH Units (7.32-7.45) 02/01/17 06:21 ABG pCO2 93 mmHg (35-45) H* 02/01/17 06:21 ABG pO2 85 mmHg (85-104) 02/01/17 06:21 ABG O2 Saturation 95 % (95-98) 02/01/17 06:21 - Impressions Impressions Chest CT 01/31/17 13:53 IMPRESSION: 1. This evaluation is notably limited secondary to respiratory motion. There is peripheral nodular consolidation in the lung parenchyma, which could represent an acute infectious or inflammatory process. 2. Small bilateral pleural effusions as well as interlobular septal thickening are identified, which can be seen in the setting of mild fluid overload/ CHF. 3. A repeat evaluation should be considered when the patient's clinical condition makes her more able to breath-hold on the CT scanner. D/ / 01/31/2017 15:43:57 Braulio Crespo / zayra Interpreting Provider: Braulio Crespo - Attending Attestation acute encephalopathy secondary to acute hypoxic hypercapnic resp failure due to acute COPD exacerbation from possible aspiration pneumonia present upon admission continue Levaquin , cefepime and clindamycin day 2 IV solumedrol acute diastolic CHF exacerbation with bilateral pleural effusions continue lasix CT of the chest showed: 1. This evaluation is notably limited secondary to respiratory motion. There is peripheral nodular consolidation in the lung parenchyma, which could represent an acute infectious or inflammatory process. 2. Small bilateral pleural effusions as well as interlobular septal thickening are identified, which can be seen in the setting of mild fluid overload/ CHF. I examined this patient and my medical decision-making was reviewed with the Resident Physician. I agree with the documented findings, disposition and treatment plan as described except to the extent set forth below.
[2017-02-02] MEDS: Ipratropium/Albuterol Neb 3 ML IH SCH ×5 (03:44→20:38)
[2017-02-02 05:02] LABS: Hematocrit 27.4 % (35.3-44.9); Hemoglobin 8.1 g/dL (11.5-15.4); Mean Corpuscular HGB Conc 29.6 g/dL (31.6-35.5); Mean Corpuscular Hemoglobin 27.6 pg (28.0-33.3); Mean Corpuscular Volume 93.5 fL (83.0-100.0); Mean Platelet Volume 10.1 fL (9.4-12.4); Platelet Count 193 K/mcL (140-400); Red Blood Count 2.93 M/mcL (3.82-4.97); Red Cell Distribution Width 14.9 % (11.5-14.5)
[2017-02-02] MEDS: Cefepime HCl 2,000 MG in Water for inj. (sterile) 20 ML IVP SCH ×2 (05:08→16:11)
[2017-02-02] MEDS: Ciprofloxacin OPTH Soln 2.5 ML BOTTLE LEFT EYE SCH ×5 (05:08→21:48)
[2017-02-02] MEDS: Clindamycin 600 MG/50 ML 600 MG/50 ML IV.SOLN IVPB SCH (05:08)
[2017-02-02 05:29] LABS: Calcium 8.6 mg/dL (8.6-10.8); Potassium 4.2 mEq/L (3.5-4.5)
[2017-02-02] MEDS: Budesonide/Formoterol 160/4.5 MDI IH SCH ×2 (07:50→20:38)
--- NOTE | 2017-02-02 10:18 | Internal Med Progress Note ---
<Ricardo Sheikh - Last Filed: 02/02/17 10:16> Date of Encounter: 02/02/17 Time of Encounter: 09:45 - Assessment and plan (1) Acute and chronic respiratory failure with hypercapnia Current Visit: No Status: Acute Assessment and plan: Presented with SOB and productive cough. -CXR on 01/29/17: small bilateral effusions along with mild bibasilar likely atelectasis. -Laboratory values revealed a CO2 level of 47. -ABG was performed, revealed a PCO2 of 74, PaO2 of 80, total CO2 of 51, and a bicarbonate of 48. -Upon arrival, patient was given DuoNeb 9mL, prednisone 60 mg by mouth, and Lasix 20 mg IV; condition improved. -This morning, arterial blood gas revealed a CO2 of 93. -Patient was placed on BiPAP. -Patient will need BiPAP qualification. Plan: -Proventil neb 2.5 mg Q2 -Duoneb 3ml Q4 -BiPAP (2) Hallucination Current Visit: Yes Status: Acute Assessment and plan: -Described seeing a man with no arms, with fake wooden arms attempting to sell her dresses. -Patient denies previous episode of hallucinations. -Reports that she has not slept for the past week. -This morning, described the presence of clocks without faces dancing in the room. -Patient seems to be aware that these hallucinations are not real. -Patient alert and oriented; Full sentences. (3) Conjunctivitis Current Visit: Yes Status: Acute Assessment and plan: Patient noted to have swelling, redness, crusting on the left eye. -Consistent with conjunctivitis. -Ciprofloxacin ophthalmic solution for left eye 2 drops every 4 hours (4) Atrial fibrillation Current Visit: No Status: Chronic Assessment and plan: EKG on 01/19/17 demonstrated atrial fibrillation, unchanged from previous EKG. Heart rate was well controlled at 61. Plan: -Continue Eliquis. -Continuous cardiac monitoring. -Patient's labetalol has been switched to 100 mg twice a day from 200 mg daily. Qualifiers: Atrial fibrillation type: chronic Qualified Code(s): I48.2 - Chronic atrial fibrillation (5) CKD (chronic kidney disease) stage 3, GFR 30-59 ml/min Current Visit: No Status: Chronic Assessment and plan: Patient's creatinine is 1.05. -Continue to monitor creatinine. -Repeat a.m. labs. -Monitor I&O, daily weights -Avoid nephrotoxins. (6) CHF exacerbation Current Visit: No Status: Acute Assessment and plan: Strict I&Os, daily weights. -Low sodium diet. -Continuous telemetry. Qualifiers: Congestive heart failure type: unspecified congestive heart failure type Qualified Code(s): I50.9 - Heart failure, unspecified (7) DVT prophylaxis Current Visit: No Status: Acute Assessment and plan: Ajit (8) Dysphagia Current Visit: Yes Status: Acute Assessment and plan: Patient had difficulty swallowing last night. Oral meds to be crushed and mixed with stools. Patient was evaluated by speech therapy today; stated that patient is okay to eat. Recommends soft diet. - Subjective Interval history: Patient was seen and examined at bedside this morning. Reports an improvement in her respiratory symptoms. Dneies having any hallucinations this morning. Currently on O2 via NC. Patient resting comfortably in bed and has no complaints at this time. - Constitutional Vitals: Temp Pulse Resp BP Pulse Ox 97.4 F L 72 18 144/88 97 02/02/17 08:13 02/02/17 08:13 02/02/17 08:13 02/02/17 08:13 02/02/17 08:13 General appearance: Present: A&O X 3 - Head Head exam: Present: atraumatic, normocephalic - Eye Eye exam: Present: PERRL, conjuntiva pink, sclera anicteric Pupils: Present: PERRL - Neck Neck exam general surgery: Present: supple, trachea midline. Absent: lymphadenopathy - Respiratory Respiratory exam: Present: decreased breath sounds, wheezes. Absent: accessory muscle use, rales, rhonchi - Cardiovascular Cardiovascular exam: Present: +S1, +S2. Absent: diastolic murmur, gallop, rubs , systolic murmur - Skin Skin exam: Present: dry, intact Internal Medicine: Result - Labs CBC & Chem 7: 02/02/17 04:40 02/02/17 04:40 Labs: Short CBC 02/02/17 Range/Units 04:40 WBC 9.0 (4.3-11.1) K/mcL Hgb 8.1 L (11.5-15.4) g/dL Hct 27.4 L (35.3-44.9) % Plt Count 193 (140-400) K/mcL BMP 02/02/17 04:40 Sodium 143 Potassium 4.2 Chloride 88 L Carbon Dioxide 45 H* BUN 31 H Creatinine 1.23 H Glucose 132 H Calcium 8.6 - ABG Interpretation ABG results: ABG ABG pH 7.38 pH Units (7.32-7.45) 02/01/17 06:21 ABG pCO2 93 mmHg (35-45) H* 02/01/17 06:21 ABG pO2 85 mmHg (85-104) 02/01/17 06:21 ABG O2 Saturation 95 % (95-98) 02/01/17 06:21 - Impressions Impressions Chest CT 01/31/17 13:53 IMPRESSION: 1. This evaluation is notably limited secondary to respiratory motion. There is peripheral nodular consolidation in the lung parenchyma, which could represent an acute infectious or inflammatory process. 2. Small bilateral pleural effusions as well as interlobular septal thickening are identified, which can be seen in the setting of mild fluid overload/ CHF. 3. A repeat evaluation should be considered when the patient's clinical condition makes her more able to breath-hold on the CT scanner. D/ / 01/31/2017 15:43:57 Braulio Crespo / zayra Interpreting Provider: Braulio Crespo Consult Discharge Plan - Plan Referrals: Francisco Javier Torres DO [Resident] - (please call an appt. upon d/c) <Eduardo Prasad H - Last Filed: 02/02/17 14:18> Date of Encounter: 02/02/17 - Constitutional Vitals: Temp Pulse Resp BP Pulse Ox 98.3 F 66 18 127/70 97 02/02/17 11:20 02/02/17 11:20 02/02/17 11:28 02/02/17 11:20 02/02/17 11:28 Internal Medicine: Result - Labs CBC & Chem 7: 02/02/17 04:40 02/02/17 04:40 Labs: Short CBC 02/02/17 Range/Units 04:40 WBC 9.0 (4.3-11.1) K/mcL Hgb 8.1 L (11.5-15.4) g/dL Hct 27.4 L (35.3-44.9) % Plt Count 193 (140-400) K/mcL BMP 02/02/17 04:40 Sodium 143 Potassium 4.2 Chloride 88 L Carbon Dioxide 45 H* BUN 31 H Creatinine 1.23 H Glucose 132 H Calcium 8.6 - ABG Interpretation ABG results: ABG ABG pH 7.38 pH Units (7.32-7.45) 02/01/17 06:21 ABG pCO2 93 mmHg (35-45) H* 02/01/17 06:21 ABG pO2 85 mmHg (85-104) 02/01/17 06:21 ABG O2 Saturation 95 % (95-98) 02/01/17 06:21 - Impressions Impressions Chest CT 01/31/17 13:53 IMPRESSION: 1. This evaluation is notably limited secondary to respiratory motion. There is peripheral nodular consolidation in the lung parenchyma, which could represent an acute infectious or inflammatory process. 2. Small bilateral pleural effusions as well as interlobular septal thickening are identified, which can be seen in the setting of mild fluid overload/ CHF. 3. A repeat evaluation should be considered when the patient's clinical condition makes her more able to breath-hold on the CT scanner. D/ / 01/31/2017 15:43:57 Braulio Crespo / zayra Interpreting Provider: Braulio Crespo - Attending Attestation acute encephalopathy secondary to acute hypoxic hypercapnic resp failure due to acute COPD exacerbation from possible aspiration pneumonia present upon admission continue Levaquin , cefepime and clindamycin day 3 IV solumedrol acute diastolic CHF exacerbation with bilateral pleural effusions continue lasix CT of the chest showed: 1. This evaluation is notably limited secondary to respiratory motion. There is peripheral nodular consolidation in the lung parenchyma, which could represent an acute infectious or inflammatory process. 2. Small bilateral pleural effusions as well as interlobular septal thickening are identified, which can be seen in the setting of mild fluid overload/ CHF. Planning for discharge tomorrow morning to a rehabilitation facility (initially she was refusing but now she is agreeable to go) I examined this patient and my medical decision-making was reviewed with the Resident Physician. I agree with the documented findings, disposition and treatment plan as described except to the extent set forth below.
[2017-02-02] MEDS: MethylPREDNISolone 40 MG/ML VIAL IVP SCH ×2 (10:48→21:49)
[2017-02-02] MEDS: Furosemide 40 MG TABLET PO SCH ×2 (10:48→16:11)
[2017-02-02] MEDS: Cyanocobalamin (B-12) 1,000 MCG TABLET PO SCH (10:48)
[2017-02-02] MEDS: Aspirin 81 MG TAB.CHEW PO SCH (10:48)
[2017-02-02] MEDS: Loratadine 10 MG TABLET PO SCH (10:49)
[2017-02-02] MEDS: Cholecalciferol (D-3) 1,000 UNIT TABLET PO SCH (10:49)
[2017-02-02] MEDS: APIXABAN 5 MG TABLET PO SCH ×2 (10:49→21:48)
[2017-02-02] MEDS: levoFLOXacin 750 MG TABLET PO SCH (16:11)
[2017-02-02] MEDS: *HR* LORazepam 2 MG/ML VIAL IVP PRN (22:32)
[2017-02-03] MEDS: Ipratropium/Albuterol Neb 3 ML IH SCH ×6 (00:16→20:23)
[2017-02-03] MEDS: Ciprofloxacin OPTH Soln 2.5 ML BOTTLE LEFT EYE SCH ×6 (01:17→20:58)
[2017-02-03] MEDS: Cefepime HCl 2,000 MG in Water for inj. (sterile) 20 ML IVP SCH ×2 (06:33→17:45)
[2017-02-03] MEDS: Clindamycin 600 MG/50 ML 600 MG/50 ML IV.SOLN IVPB SCH (07:08)
[2017-02-03] MEDS: Levofloxacin 750 MG/150 ML 750 MG/150 ML BAG IVPB SCH (07:09)
[2017-02-03] MEDS: Budesonide/Formoterol 160/4.5 MDI IH SCH ×2 (08:33→20:25)
[2017-02-03] MEDS: MethylPREDNISolone 40 MG/ML VIAL IVP SCH ×2 (10:27→20:59)
[2017-02-03] MEDS: APIXABAN 5 MG TABLET PO SCH ×2 (10:27→20:59)
[2017-02-03] MEDS: Loratadine 10 MG TABLET PO SCH (10:27)
[2017-02-03] MEDS: Cholecalciferol (D-3) 1,000 UNIT TABLET PO SCH (10:27)
[2017-02-03] MEDS: Cyanocobalamin (B-12) 1,000 MCG TABLET PO SCH (10:27)
[2017-02-03] MEDS: Aspirin 81 MG TAB.CHEW PO SCH (10:27)
[2017-02-03] MEDS: Furosemide 40 MG TABLET PO SCH ×2 (10:27→17:40)
--- NOTE | 2017-02-03 14:31 | Discharge Summary ---
<Ricardo Sheikh - Last Filed: 02/03/17 16:43> Date of Encounter: 02/03/17 Time of Encounter: 14:30 - Discharge Diagnosis (1) Acute and chronic respiratory failure with hypercapnia Priority: Primary Status: Acute (2) Hallucination Priority: Secondary Status: Acute (3) Conjunctivitis Priority: Secondary Status: Acute Qualifiers: Qualified Code(s): H10.9 - Unspecified conjunctivitis (4) Atrial fibrillation Priority: Secondary Status: Chronic Qualifiers: Atrial fibrillation type: chronic Qualified Code(s): I48.2 - Chronic atrial fibrillation (5) CKD (chronic kidney disease) stage 3, GFR 30-59 ml/min Priority: Secondary Status: Chronic (6) CHF exacerbation Priority: Secondary Status: Acute Qualifiers: Congestive heart failure type: unspecified congestive heart failure type Qualified Code(s): I50.9 - Heart failure, unspecified (7) DVT prophylaxis Priority: Secondary Status: Acute (8) Dysphagia Priority: Secondary Status: Acute Qualifiers: Qualified Code(s): R13.10 - Dysphagia, unspecified - Discharge Medications Prescriptions: Ciprofloxacin OPTH Soln [Ciloxan OPTH Soln] 2 drop LEFT EYE Q4HR #1 bottle Clindamycin [Cleocin] 450 mg PO Q8HR #24 capsule levoFLOXacin [Levaquin] 750 mg PO DAILY 4 Days #4 tablet predniSONE [PredniSONE] 10 mg PO DAILY 12 Days tablet Home Medications: Aspirin 81 mg PO DAILY 06/20/15 [History] Cyanocobalamin (Vitamin B-12) [B-12] 1,000 mcg PO DAILY 06/20/15 [History] Simvastatin [Zocor] 40 mg PO HS 06/20/15 [History] Pantoprazole Sodium [Protonix] 40 mg PO BID #60 tablet. 11/08/15 [Rx] Labetalol HCl 200 mg PO DAILY 01/26/16 [History] Albuterol Sulfate [Ventolin Hfa] 2 puff IH Q4-6H PRN 11/02/16 [History] Budesonide/Formoterol 160/4.5 [Symbicort 160/4.5] 2 puff IH BIDR 11/02/16 [ History] Calcitriol [Rocaltrol] 0.25 mcg PO DAILY 11/02/16 [History] Citalopram Hydrobromide [Celexa] 40 mg PO DAILY 11/02/16 [History] Acetaminophen [Tylenol] 650 mg PO Q6HR PRN tab 11/04/16 [Rx] Apixaban [Eliquis] 5 mg PO BID 01/29/17 [History] Cholecalciferol (Vitamin D3) [Vitamin D] 1,000 unit PO DAILY 01/29/17 [History] Furosemide [Lasix] 40 mg PO BID 01/29/17 [History] Ciprofloxacin OPTH Soln [Ciloxan OPTH Soln] 2 drop LEFT EYE Q4HR #1 bottle 02/03 [Rx] Clindamycin [Cleocin] 450 mg PO Q8HR #24 capsule 02/03/17 [Rx] levoFLOXacin [Levaquin] 750 mg PO DAILY 4 Days #4 tablet 02/03/17 [Rx] predniSONE [PredniSONE] 10 mg PO DAILY 12 Days tablet 02/03/17 [Rx] Allergies/Adverse Reactions: 3 Allergy/AdvReac Type Severity Reaction Status Date / Time Penicillins [PCN] Allergy Hives Verified 01/26/16 11:14 Procedures/tests Complete & Pending: Procedures Performed prior 72 hours Category Date Time Status CT chest w/o contrast [CT chest wo con] [CT] Stat Cat Scan 01/31/17 13:53 Completed Date of admission: 01/29/17 14:34 Primary care physician: Des Fajardo, Consults: 01/30/17 13:23 Consult to Respiratory Therapy [CONS] Routine Reason for Consult: BIPAP qualification tonight Call Completed: No 02/01/17 07:40 Consult to Speech Therapy [CONS] Routine Comment: Evaluate, develop and implement POC Reason for Consult: possible aspiration Call Completed: No 02/01/17 13:58 Consult to Occupational Therapy [CONS] Routine Comment: Evaluate, develop and implement POC Reason for Consult: eval Consult to Physical Therapy [CONS] Routine Comment: Evaluate, develop and implement POC Reason for Consult: eval 02/02/17 15:16 Consult to Occupational Therapy [CONS] Routine Comment: Evaluate, develop and implement POC Reason for Consult: eval Consult to Physical Therapy [CONS] Routine Comment: Evaluate, develop and implement POC Reason for Consult: eval Discharging clinician: Ricardo Sheikh Anticipated date of discharge: 02/03/17 - Patient Status Disposition: Transfer SNF Condition: Good Overall status at discharge: patient is progressing back to baseline - Discharge Instructions Follow Up With: Francisco Javier Torres DO [Resident] - (please call an appt. upon d/c) - Diet and Activity Activity: increase activity as tolerated Diet: other (Mechanical diet) Hospital course: Ms. Hutchinson is a 82 year old female with a past medical history of CHF, COPD, and atrial fibrillation who presented to the emergency department on 01/29/17 with a chief complaint of difficulty breathing. Patient reported that for the past week, she had increasing shortness of breath, weakness, and malaise along with productive cough with clear-colored sputum. Also reported having some nausea and decreased appetite. She saw her primary care physician on Sunday, who gave her a 5 day course of antibiotics. She is unsure of what antibiotics they were. She completed the course of antibiotics, but was still symptomatic. On arrival, patient was tachypneic with a respiratory rate of 24. Steroids and breathing treatments upon arrival. Hypercarbia with a level of 47. Previous admission shows a similar CO2 level. Chest x-ray demostrated presence of small bilateral pleural effusions. She was given 20 mg of IV Lasix. Currently on 4 L of oxygen via nasal cannula at home all day. On Elliquis for atrial fibrillation. Denied any sick contacts. Lab work demonstrated hemoglobin of 7.6. Patient has chronic anemia. Stool occult negative. EKG demonstrated the presence of atrial fibrillation with a rate of 74 bpm. No changes compared to the last EKG. Patient was placed on continuous cardiac monitoring. On 01/31/17, patient reported having hallucinations. She stated that she saw a man with wooden arms attempting to sell her dresses. She states that she recognizes that this was a hallucination. She admits that she has not slept for approximately one week. Patient denies having any episodes like this before. Denies having any acute respiratory distress. Patient noted to have swelling and crusting on the left eye consistent with conjunctivitis. She was placed on ciprofloxacin eye drops. Later that day, patient was placed on BiPAP due to increasing shortness of breath. The next day, patient reported hallucinating again. This time, she saw clocks without faces dancing around the room. Patient was able to recognize that these were hallucinations. She was alert and oriented, and was able to speak in full sentences. On 02/02/17, she reported that she did not have any hallucinations any longer. On date of discharge, patient is feeling well. Currently on O2 via NC. Due to the severity of the patient's worsening chronic respiratory failure, consequence of COPD, the patient will require a home mechanical ventilator to reduce risk of mortality. She will be sent on 4 more days of levaquin, 6 more days of clindamycin, and 4 more days of ciprofloxacin opthalmic solution to complete a 7 day course of each. Patient will be discharged when home mechanical ventilator can be set up. - Time Spent with Patient Total time spent providing and/or coordinating discharge services: - Constitutional Vitals: Temp Pulse Resp BP Pulse Ox 98.9 F 79 16 147/69 98 02/03/17 11:20 02/03/17 11:20 02/03/17 11:58 02/03/17 11:20 02/03/17 11:58 General appearance: Present: A&O X 3 - Head Head exam: Present: atraumatic, normocephalic - Eye Eye exam: Present: PERRL, conjuntiva pink, sclera anicteric Pupils: Present: PERRL - Neck Neck exam general surgery: Present: supple, trachea midline. Absent: lymphadenopathy - Respiratory Respiratory exam: Present: decreased breath sounds, prolonged expiratory phase. Absent: accessory muscle use, rales, rhonchi, wheezes - Cardiovascular Cardiovascular exam: Present: +S1, +S2. Absent: diastolic murmur, gallop, rubs , systolic murmur - Extremities Exam Extremities exam: Present: warm, radial pulses palpable and symmetrical. Absent : calf tenderness, cyanotic, pedal edema - Skin Skin exam: Present: dry, intact <Eduardo Prasad H - Last Filed: 02/03/17 17:25> Date of Encounter: 02/03/17 Date of admission: 01/29/17 14:34 Primary care physician: Des Fajardo, Consults: 01/30/17 13:23 Consult to Respiratory Therapy [CONS] Routine Reason for Consult: BIPAP qualification tonight Call Completed: No 02/01/17 07:40 Consult to Speech Therapy [CONS] Routine Comment: Evaluate, develop and implement POC Reason for Consult: possible aspiration Call Completed: No 02/01/17 13:58 Consult to Occupational Therapy [CONS] Routine Comment: Evaluate, develop and implement POC Reason for Consult: eval Consult to Physical Therapy [CONS] Routine Comment: Evaluate, develop and implement POC Reason for Consult: eval 02/02/17 15:16 Consult to Occupational Therapy [CONS] Routine Comment: Evaluate, develop and implement POC Reason for Consult: eval Consult to Physical Therapy [CONS] Routine Comment: Evaluate, develop and implement POC Reason for Consult: eval Hospital course: Ms. Hutchinson is a 82 year old female - Time Spent with Patient Total time spent providing and/or coordinating discharge services: Greater than 30 minutes (40 min) - Constitutional Vitals: Temp Pulse Resp BP Pulse Ox 97.4 F L 73 18 120/48 92 02/03/17 16:15 02/03/17 16:15 02/03/17 16:15 02/03/17 16:15 02/03/17 16:15 - Attending Attestation acute encephalopathy secondary to acute hypoxic hypercapnic resp failure due to acute COPD exacerbation from possible aspiration pneumonia present upon admission continue Levaquin , and clindamycin day 4 Received Levaquin Continue prednisone acute diastolic CHF exacerbation with bilateral pleural effusions continue lasix CT of the chest showed: 1. This evaluation is notably limited secondary to respiratory motion. There is peripheral nodular consolidation in the lung parenchyma, which could represent an acute infectious or inflammatory process. 2. Small bilateral pleural effusions as well as interlobular septal thickening are identified, which can be seen in the setting of mild fluid overload/ CHF. Due to the severity of the patient's worsening chronic respiratory failure, consequence of COPD, the patient will require a home mechanical ventilator to reduce risk of mortality. I examined this patient and my medical decision-making was reviewed with the Resident Physician. I agree with the documented findings, disposition and treatment plan as described except to the extent set forth below.
[2017-02-04] MEDS: Ciprofloxacin OPTH Soln 2.5 ML BOTTLE LEFT EYE SCH ×6 (00:07→20:55)
[2017-02-04] MEDS: Ipratropium/Albuterol Neb 3 ML IH SCH ×6 (00:16→20:24)
[2017-02-04] MEDS: Cefepime HCl 2,000 MG in Water for inj. (sterile) 20 ML IVP SCH ×2 (04:34→16:34)
[2017-02-04] MEDS: Cholecalciferol (D-3) 1,000 UNIT TABLET PO SCH (08:43)
[2017-02-04] MEDS: Budesonide/Formoterol 160/4.5 MDI IH SCH ×2 (08:43→20:24)
[2017-02-04] MEDS: APIXABAN 5 MG TABLET PO SCH ×2 (08:43→20:55)
[2017-02-04] MEDS: Furosemide 40 MG TABLET PO SCH ×2 (08:43→16:38)
[2017-02-04] MEDS: Aspirin 81 MG TAB.CHEW PO SCH (08:44)
[2017-02-04] MEDS: Cyanocobalamin (B-12) 1,000 MCG TABLET PO SCH (08:44)
[2017-02-04] MEDS: MethylPREDNISolone 40 MG/ML VIAL IVP SCH ×2 (08:44→20:56)
[2017-02-04] MEDS: Loratadine 10 MG TABLET PO SCH (08:44)
--- NOTE | 2017-02-04 09:46 | Internal Med Progress Note ---
<Ricardo Sheikh - Last Filed: 02/04/17 09:44> Date of Encounter: 02/04/17 Time of Encounter: 09:45 - Assessment and plan (1) Acute and chronic respiratory failure with hypercapnia Current Visit: No Status: Acute Assessment and plan: Presented with SOB and productive cough. -CXR on 01/29/17: small bilateral effusions along with mild bibasilar likely atelectasis. -Laboratory values revealed a CO2 level of 47. -ABG was performed, revealed a PCO2 of 74, PaO2 of 80, total CO2 of 51, and a bicarbonate of 48. -Upon arrival, patient was given DuoNeb 9mL, prednisone 60 mg by mouth, and Lasix 20 mg IV; condition improved. Plan: -Proventil neb 2.5 mg Q2 -Duoneb 3ml Q4 -O2 via NC -Will likely need simplex operator BiPAP (2) Hallucination Current Visit: Yes Status: Acute Assessment and plan: Resolved (3) Conjunctivitis Current Visit: Yes Status: Acute Assessment and plan: Ciprofloxacin ophthalmic solution for left eye 2 drops every 4 hours Qualifiers: Qualified Code(s): H10.9 - Unspecified conjunctivitis (4) Atrial fibrillation Current Visit: No Status: Chronic Assessment and plan: EKG on 01/19/17 demonstrated atrial fibrillation, unchanged from previous EKG. Heart rate was well controlled at 79. Plan: -Continue Eliquis. -Continuous cardiac monitoring. -Labetalol 100 mg BID. Qualifiers: Atrial fibrillation type: chronic Qualified Code(s): I48.2 - Chronic atrial fibrillation (5) CKD (chronic kidney disease) stage 3, GFR 30-59 ml/min Current Visit: No Status: Chronic Assessment and plan: -Continue to monitor creatinine. -Monitor I&O, daily weights -Avoid nephrotoxins. (6) CHF exacerbation Current Visit: No Status: Acute Assessment and plan: Strict I&Os, daily weights. -Low sodium diet. Qualifiers: Congestive heart failure type: unspecified congestive heart failure type Qualified Code(s): I50.9 - Heart failure, unspecified (7) DVT prophylaxis Current Visit: No Status: Acute Assessment and plan: Eliquis (8) Dysphagia Current Visit: Yes Status: Acute Assessment and plan: Soft diet, cardiac Qualifiers: Qualified Code(s): R13.10 - Dysphagia, unspecified - Subjective Interval history: Patient was seen and examined at bedside this morning. Reports an improvement in her respiratory symptoms. Dneies having any hallucinations this morning. Currently on O2 via NC. Patient resting comfortably in bed and has no complaints at this time. Patient will likely be discharged today. - Constitutional Vitals: Temp Pulse Resp BP Pulse Ox 98.0 F 79 18 133/51 96 02/04/17 08:21 02/04/17 08:21 02/04/17 08:45 02/04/17 08:21 02/04/17 08:55 General appearance: Present: A&O X 3 - Head Head exam: Present: atraumatic, normocephalic - Eye Eye exam: Present: PERRL, conjuntiva pink, sclera anicteric Pupils: Present: PERRL - Neck Neck exam general surgery: Present: supple, trachea midline. Absent: lymphadenopathy - Respiratory Respiratory exam: Present: decreased breath sounds, prolonged expiratory phase. Absent: accessory muscle use, rales, rhonchi, wheezes - Cardiovascular Cardiovascular exam: Present: +S1, +S2. Absent: diastolic murmur, gallop, rubs , systolic murmur - Extremities Exam Extremities exam: Present: warm, radial pulses palpable and symmetrical. Absent : calf tenderness, cyanotic, pedal edema - Skin Skin exam: Present: dry, intact Internal Medicine: Result - Labs CBC & Chem 7: 02/02/17 04:40 02/02/17 04:40 - ABG Interpretation ABG results: ABG ABG pH 7.38 pH Units (7.32-7.45) 02/01/17 06:21 ABG pCO2 93 mmHg (35-45) H* 02/01/17 06:21 ABG pO2 85 mmHg (85-104) 02/01/17 06:21 ABG O2 Saturation 95 % (95-98) 02/01/17 06:21 Consult Discharge Plan - Plan Referrals: Francisco Javier Torres DO [Resident] - (please call an appt. upon d/c) Prescriptions: Ciprofloxacin OPTH Soln [Ciloxan OPTH Soln] 2 drop LEFT EYE Q4HR #1 bottle Clindamycin [Cleocin] 450 mg PO Q8HR #24 capsule levoFLOXacin [Levaquin] 750 mg PO DAILY 4 Days #4 tablet predniSONE [PredniSONE] 10 mg PO DAILY 12 Days tablet <Eduardo Prasad H - Last Filed: 02/04/17 12:38> Date of Encounter: 02/04/17 - Constitutional Vitals: Temp Pulse Resp BP Pulse Ox 97.8 F 75 18 125/70 96 02/04/17 11:54 02/04/17 11:54 02/04/17 12:12 02/04/17 12:12 02/04/17 12:12 Internal Medicine: Result - Labs CBC & Chem 7: 02/02/17 04:40 02/02/17 04:40 - ABG Interpretation ABG results: ABG ABG pH 7.38 pH Units (7.32-7.45) 02/01/17 06:21 ABG pCO2 93 mmHg (35-45) H* 02/01/17 06:21 ABG pO2 85 mmHg (85-104) 02/01/17 06:21 ABG O2 Saturation 95 % (95-98) 02/01/17 06:21 - Attending Attestation acute encephalopathy secondary to acute hypoxic hypercapnic resp failure due to acute COPD exacerbation from possible aspiration pneumonia present upon admission continue Levaquin , cefepime and clindamycin day 5 IV solumedrol acute diastolic CHF exacerbation with bilateral pleural effusions continue lasix Discharge in the morning if stable and if BiPAP is able to be obtained. Many to follow-up with psychiatry as outpatient I examined this patient and my medical decision-making was reviewed with the Resident Physician. I agree with the documented findings, disposition and treatment plan as described except to the extent set forth below.
[2017-02-04] MEDS: levoFLOXacin 750 MG TABLET PO SCH (13:48)
[2017-02-05] MEDS: Ipratropium/Albuterol Neb 3 ML IH SCH ×7 (00:03→23:35)
[2017-02-05] MEDS: Ciprofloxacin OPTH Soln 2.5 ML BOTTLE LEFT EYE SCH ×6 (00:41→20:15)
[2017-02-05] MEDS: Cefepime HCl 2,000 MG in Water for inj. (sterile) 20 ML IVP SCH ×3 (07:02→20:13)
--- NOTE | 2017-02-05 08:12 | Internal Med Progress Note ---
Date of Encounter: 02/05/17 Time of Encounter: 08:07 - Assessment and plan (1) Acute and chronic respiratory failure with hypercapnia Current Visit: No Status: Acute Assessment and plan: acute encephalopathy secondary to acute hypoxic hypercapnic resp failure due to acute COPD exacerbation from possible aspiration pneumonia present upon admission -CXR on 01/29/17: small bilateral effusions along with mild bibasilar likely atelectasis. -Upon arrival, patient was given DuoNeb 9mL, prednisone 60 mg by mouth, and Lasix continue Levaquin and clindamycin day 6, received last dose of clindamycin today and continue only 2 more days of Levaquin and clindamycin Prednisone acute diastolic CHF exacerbation with bilateral pleural effusions continue lasix Discharge if BiPAP use is arranged as outpatient (2) Hallucination Current Visit: Yes Status: Acute Assessment and plan: Resolved (3) Conjunctivitis Current Visit: Yes Status: Acute Assessment and plan: Ciprofloxacin ophthalmic solution for left eye 2 drops every 4 hours Qualifiers: Qualified Code(s): H10.9 - Unspecified conjunctivitis (4) Atrial fibrillation Current Visit: No Status: Chronic Assessment and plan: EKG on 01/19/17 demonstrated atrial fibrillation, unchanged from previous EKG. Heart rate was well controlled at 79. Plan: -Continue Eliquis. -Continuous cardiac monitoring. -Labetalol 100 mg BID. Qualifiers: Atrial fibrillation type: chronic Qualified Code(s): I48.2 - Chronic atrial fibrillation (5) CKD (chronic kidney disease) stage 3, GFR 30-59 ml/min Current Visit: No Status: Chronic Assessment and plan: -Continue to monitor creatinine (6) diastolic CHF exacerbation Current Visit: No Status: Acute Assessment and plan: Strict I&Os, daily weights. -Low sodium diet. Qualifiers: Congestive heart failure type: unspecified congestive heart failure type Qualified Code(s): I50.9 - Heart failure, unspecified - Subjective Interval history: Has not had any hallucinations today, denies any chest pain, feels less short of breath, no abdominal pain fevers or dysuria - Constitutional Vitals: Temp Pulse Resp BP Pulse Ox 97.8 F 78 18 127/88 96 02/05/17 07:14 02/05/17 07:14 02/05/17 07:14 02/05/17 07:14 02/05/17 07:14 General appearance: Present: A&O X 3 - Head Head exam: Present: atraumatic, normocephalic - Eye Eye exam: Present: PERRL, conjuntiva pink, sclera anicteric Pupils: Present: PERRL - Neck Neck exam general surgery: Present: supple, trachea midline. Absent: lymphadenopathy - Respiratory Respiratory exam: Present: decreased breath sounds, CTAB. Absent: accessory muscle use, rales, rhonchi, wheezes - Cardiovascular Cardiovascular exam: Present: RRR, +S1, +S2. Absent: diastolic murmur, gallop, rubs, systolic murmur - GI/Abdominal GI/Abdominal exam: Present: distended, normal bowel sounds, soft, no peritoneal signs. Absent: tenderness - Extremities Exam Extremities exam: Present: warm, radial pulses palpable and symmetrical. Absent : calf tenderness, cyanotic, pedal edema - Neurological Exam Neurological exam: Present: CN II-XII intact, oriented X3, no focal deficits. Absent: pronater drift, facial droop, speech deficit - Skin Skin exam: Present: dry, intact Internal Medicine: Result - Labs CBC & Chem 7: 02/02/17 04:40 02/02/17 04:40 - ABG Interpretation ABG results: ABG ABG pH 7.38 pH Units (7.32-7.45) 02/01/17 06:21 ABG pCO2 93 mmHg (35-45) H* 02/01/17 06:21 ABG pO2 85 mmHg (85-104) 02/01/17 06:21 ABG O2 Saturation 95 % (95-98) 02/01/17 06:21 Consult Discharge Plan - Plan Referrals: Francisco Javier Torres DO [Resident] - (please call an appt. upon d/c) Prescriptions: Ciprofloxacin OPTH Soln [Ciloxan OPTH Soln] 2 drop LEFT EYE Q4HR #1 bottle Clindamycin [Cleocin] 450 mg PO Q8HR #24 capsule levoFLOXacin [Levaquin] 750 mg PO DAILY 4 Days #4 tablet predniSONE [PredniSONE] 10 mg PO DAILY 12 Days tablet
[2017-02-05] MEDS: APIXABAN 5 MG TABLET PO SCH ×2 (09:50→20:14)
[2017-02-05] MEDS: predniSONE 20 MG TABLET PO SCH (09:50)
[2017-02-05] MEDS: Aspirin 81 MG TAB.CHEW PO SCH (09:50)
[2017-02-05] MEDS: Cholecalciferol (D-3) 1,000 UNIT TABLET PO SCH (09:50)
[2017-02-05] MEDS: Cyanocobalamin (B-12) 1,000 MCG TABLET PO SCH (09:50)
[2017-02-05] MEDS: Furosemide 40 MG TABLET PO SCH ×2 (09:50→16:29)
[2017-02-05] MEDS: Loratadine 10 MG TABLET PO SCH (09:51)
[2017-02-05] MEDS: Budesonide/Formoterol 160/4.5 MDI IH SCH ×2 (10:35→20:28)
[2017-02-06] MEDS: *HR* LORazepam 2 MG/ML VIAL IVP PRN ×2 (00:12→22:57)
[2017-02-06] MEDS: Ciprofloxacin OPTH Soln 2.5 ML BOTTLE LEFT EYE SCH ×6 (00:12→19:55)
[2017-02-06] MEDS: Ipratropium/Albuterol Neb 3 ML IH SCH ×5 (03:55→21:35)
[2017-02-06] MEDS: Budesonide/Formoterol 160/4.5 MDI IH SCH ×2 (07:52→21:35)
[2017-02-06] MEDS: Cefepime HCl 2,000 MG in Water for inj. (sterile) 20 ML IVP SCH ×2 (08:17→19:55)
[2017-02-06] MEDS: Cyanocobalamin (B-12) 1,000 MCG TABLET PO SCH (08:18)
[2017-02-06] MEDS: predniSONE 20 MG TABLET PO SCH (08:19)
[2017-02-06] MEDS: Cholecalciferol (D-3) 1,000 UNIT TABLET PO SCH (08:19)
[2017-02-06] MEDS: Aspirin 81 MG TAB.CHEW PO SCH (08:19)
[2017-02-06] MEDS: Furosemide 40 MG TABLET PO SCH ×2 (08:19→16:52)
[2017-02-06] MEDS: Loratadine 10 MG TABLET PO SCH (08:19)
[2017-02-06] MEDS: APIXABAN 5 MG TABLET PO SCH ×2 (08:19→21:21)
--- NOTE | 2017-02-06 09:02 | Internal Med Progress Note ---
<Tr Coffmna - Last Filed: 02/06/17 15:11> Date of Encounter: 02/06/17 Time of Encounter: 09:00 - Assessment and plan (1) Acute and chronic respiratory failure with hypercapnia Current Visit: Yes Status: Acute Assessment and plan: acute encephalopathy secondary to acute hypoxic hypercapnic resp failure due to acute COPD exacerbation from possible aspiration pneumonia present upon admission -CXR on 01/29/17: small bilateral effusions along with mild bibasilar likely atelectasis. -Upon arrival, patient was given DuoNeb 9mL, prednisone 60 mg by mouth, and Lasix continue Levaquin and clindamycin day 7, received last dose of clindamycin today and continue only 1 more days of Levaquin and clindamycin Prednisone acute diastolic CHF exacerbation with bilateral pleural effusions continue lasix Discharge if BiPAP use is arranged as outpatient. Plan to DC tomorrow as it should be set up tomorrow AM (2) Hallucination Current Visit: Yes Status: Acute Assessment and plan: Resolved no more events (3) Conjunctivitis Current Visit: Yes Status: Acute Assessment and plan: Ciprofloxacin ophthalmic solution for left eye 2 drops every 4 hours Qualifiers: Qualified Code(s): H10.9 - Unspecified conjunctivitis (4) Atrial fibrillation Current Visit: No Status: Chronic Assessment and plan: EKG on 01/19/17 demonstrated atrial fibrillation, unchanged from previous EKG. Heart rate was well controlled at 79. Plan: -Continue Eliquis. -Continuous cardiac monitoring. -Labetalol 100 mg BID. Qualifiers: Atrial fibrillation type: chronic Qualified Code(s): I48.2 - Chronic atrial fibrillation (5) CKD (chronic kidney disease) stage 3, GFR 30-59 ml/min Current Visit: No Status: Chronic Assessment and plan: -Chronic will no longer monitor as it has been stable on admission. (6) diastolic CHF exacerbation Current Visit: No Status: Acute Assessment and plan: Strict I&Os, daily weights. -Low sodium diet. Qualifiers: Congestive heart failure type: unspecified congestive heart failure type Qualified Code(s): I50.9 - Heart failure, unspecified (2) Diastolic CHF, chronic Current Visit: Yes Status: Chronic (3) Atrial fibrillation Current Visit: Yes Status: Chronic Assessment and plan: EKG on 01/19/17 demonstrated atrial fibrillation, unchanged from previous EKG. Heart rate was well controlled at 79. Plan: -Continue Eliquis. -Continuous cardiac monitoring. -Labetalol 100 mg BID. Qualifiers: Atrial fibrillation type: chronic Qualified Code(s): I48.2 - Chronic atrial fibrillation (4) CKD (chronic kidney disease) stage 3, GFR 30-59 ml/min Current Visit: Yes Status: Chronic Assessment and plan: -Continue to monitor creatinine. -Monitor I&O, daily weights -Avoid nephrotoxins. (5) Hallucination Current Visit: Yes Status: Acute Assessment and plan: Resolved (6) Conjunctivitis Current Visit: Yes Status: Acute Assessment and plan: Ciprofloxacin ophthalmic solution for left eye 2 drops every 4 hours Qualifiers: Qualified Code(s): H10.9 - Unspecified conjunctivitis - Subjective Interval history: Pt doing well today and has no new complaints she is doing well on the antibiotics. She is still using bipap at night. She can be DC'ed when Bipap is set up at home which should be done tomorrow. Pt had no hallucinaions today, denies chest pain, feels less shortness of breath and no abdominal pain or fevers or dysuria. - Constitutional Vitals: Temp Pulse Resp BP Pulse Ox 98.2 F 82 18 158/68 94 02/06/17 07:04 02/06/17 07:04 02/06/17 07:56 02/06/17 07:04 02/06/17 07:56 General appearance: Present: A&O X 3 - Head Head exam: Present: atraumatic, normocephalic - Eye Eye exam: Present: PERRL, conjuntiva pink, sclera anicteric Pupils: Present: PERRL - Neck Neck exam general surgery: Present: supple, trachea midline. Absent: lymphadenopathy - Respiratory Respiratory exam: Present: decreased breath sounds. Absent: accessory muscle use, rales, rhonchi, wheezes - Cardiovascular Cardiovascular exam: Present: RRR, +S1, +S2. Absent: diastolic murmur, gallop, rubs, systolic murmur - GI/Abdominal GI/Abdominal exam: Present: normal bowel sounds, soft, no peritoneal signs. Absent: distended, tenderness - Extremities Exam Extremities exam: Present: warm, radial pulses palpable and symmetrical. Absent : calf tenderness, cyanotic, pedal edema - Neurological Exam Neurological exam: Present: CN II-XII intact, oriented X3, no focal deficits. Absent: pronater drift, facial droop, speech deficit Internal Medicine: Result - Labs CBC & Chem 7: 02/02/17 04:40 02/02/17 04:40 - ABG Interpretation ABG results: ABG ABG pH 7.38 pH Units (7.32-7.45) 02/01/17 06:21 ABG pCO2 93 mmHg (35-45) H* 02/01/17 06:21 ABG pO2 85 mmHg (85-104) 02/01/17 06:21 ABG O2 Saturation 95 % (95-98) 02/01/17 06:21 Consult Discharge Plan - Plan Referrals: Francisco Javier Torres DO [Resident] - (please call an appt. upon d/c) Prescriptions: Ciprofloxacin OPTH Soln [Ciloxan OPTH Soln] 2 drop LEFT EYE Q4HR #1 bottle Clindamycin [Cleocin] 450 mg PO Q8HR #24 capsule levoFLOXacin [Levaquin] 750 mg PO DAILY 4 Days #4 tablet predniSONE [PredniSONE] 10 mg PO DAILY 12 Days tablet <Ilia-Eloy Mcclure - Last Filed: 02/06/17 15:50> Date of Encounter: 02/06/17 - Constitutional Vitals: Temp Pulse Resp BP Pulse Ox 98.0 F 64 18 126/75 93 02/06/17 10:57 02/06/17 10:57 02/06/17 11:13 02/06/17 10:57 02/06/17 11:13 Internal Medicine: Result - Labs CBC & Chem 7: 02/02/17 04:40 02/02/17 04:40 - ABG Interpretation ABG results: ABG ABG pH 7.38 pH Units (7.32-7.45) 02/01/17 06:21 ABG pCO2 93 mmHg (35-45) H* 02/01/17 06:21 ABG pO2 85 mmHg (85-104) 02/01/17 06:21 ABG O2 Saturation 95 % (95-98) 02/01/17 06:21 - Attending Attestation I examined this patient and my medical decision-making was reviewed with the Resident Physician. I agree with the documented findings, disposition and treatment plan as described except to the extent set forth below. I have seen and examined the patient. Patient has a past medical history of A. fib, CHF, COPD, GERD, hyperlipidemia, hypertension and anxiety. Admitted for acute respiratory failure secondary to COPD exacerbation and possible aspiration pneumonia. Patient has now improved. Awaiting discharge to ECF on BiPAP is set up. No other acute events or complaints.
[2017-02-06] MEDS: levoFLOXacin 750 MG TABLET PO SCH (14:32)
[2017-02-07] MEDS: Ipratropium/Albuterol Neb 3 ML IH SCH ×4 (00:03→11:01)
[2017-02-07] MEDS: Ciprofloxacin OPTH Soln 2.5 ML BOTTLE LEFT EYE SCH ×4 (00:32→13:02)
[2017-02-07] MEDS: Budesonide/Formoterol 160/4.5 MDI IH SCH (07:56)
--- NOTE | 2017-02-07 08:33 | Internal Med Progress Note ---
<Tr Coffman - Last Filed: 02/07/17 14:01> Date of Encounter: 02/07/17 Time of Encounter: 08:33 - Assessment and plan (1) Acute and chronic respiratory failure with hypercapnia Current Visit: Yes Status: Acute Assessment and plan: acute encephalopathy secondary to acute hypoxic hypercapnic resp failure due to acute COPD exacerbation from possible aspiration pneumonia present upon admission -CXR on 01/29/17: small bilateral effusions along with mild bibasilar likely atelectasis. -Upon arrival, patient was given DuoNeb 9mL, prednisone 60 mg by mouth, and Lasix continue Levaquin and clindamycin day 7, received last dose of clindamycin today and continue only 1 more days of Levaquin and clindamycin Prednisone acute diastolic CHF exacerbation with bilateral pleural effusions continue lasix Discharge if BiPAP use is arranged as outpatient. Plan to DC today once [facility] notifies us of BI-Pap being set up. (2) Hallucination Current Visit: Yes Status: Acute Assessment and plan: Resolved no more events (3) Conjunctivitis Current Visit: Yes Status: Acute Assessment and plan: Ciprofloxacin ophthalmic solution for left eye 2 drops every 4 hours Qualifiers: Qualified Code(s): H10.9 - Unspecified conjunctivitis (4) Atrial fibrillation Current Visit: No Status: Chronic Assessment and plan: EKG on 01/19/17 demonstrated atrial fibrillation, unchanged from previous EKG. Heart rate was well controlled at 79. Plan: -Continue Eliquis. -Continuous cardiac monitoring. -Labetalol 100 mg BID. Qualifiers: Atrial fibrillation type: chronic Qualified Code(s): I48.2 - Chronic atrial fibrillation (5) CKD (chronic kidney disease) stage 3, GFR 30-59 ml/min Current Visit: No Status: Chronic Assessment and plan: -Chronic will no longer monitor as it has been stable on admission. (6) diastolic CHF exacerbation Current Visit: No Status: Acute Assessment and plan: Strict I&Os, daily weights. -Low sodium diet. Qualifiers: Congestive heart failure type: unspecified congestive heart failure type Qualified Code(s): I50.9 - Heart failure, unspecified (2) Diastolic CHF, chronic Current Visit: Yes Status: Chronic (3) Atrial fibrillation Current Visit: Yes Status: Chronic Assessment and plan: EKG on 01/19/17 demonstrated atrial fibrillation, unchanged from previous EKG. Heart rate was well controlled at 79. Plan: -Continue Eliquis. -Continuous cardiac monitoring. -Labetalol 100 mg BID. Qualifiers: Atrial fibrillation type: chronic Qualified Code(s): I48.2 - Chronic atrial fibrillation (4) CKD (chronic kidney disease) stage 3, GFR 30-59 ml/min Current Visit: Yes Status: Chronic Assessment and plan: -Continue to monitor creatinine. -Monitor I&O, daily weights -Avoid nephrotoxins. (5) Hallucination Current Visit: Yes Status: Acute Assessment and plan: Resolved (6) Conjunctivitis Current Visit: Yes Status: Acute Assessment and plan: Ciprofloxacin ophthalmic solution for left eye 2 drops every 4 hours - Time Spent With Patient less than 15 minutes - Subjective Interval history: Pt doing well today and has no new complaints she is doing well on the antibiotics. She is still using bipap at night. She did say that she is having a dry mouth but is trying to drink more water. Her appetite was decreased yesterday she thinks it's due to being tired of being in the hospital. She can be DC'ed when Bipap is set up at home which should be done today. Pt had no hallucinaions today, denies chest pain, feels less shortness of breath and no abdominal pain or fevers or dysuria. - Constitutional Vitals: Temp Pulse Resp BP Pulse Ox 97.3 F L 85 16 119/72 98 02/07/17 06:54 02/07/17 06:54 02/07/17 07:56 02/07/17 06:54 02/07/17 07:56 General appearance: Present: A&O X 3 - Head Head exam: Present: atraumatic, normocephalic - Eye Eye exam: Present: PERRL, conjuntiva pink, sclera anicteric Pupils: Present: PERRL - Neck Neck exam general surgery: Present: supple, trachea midline. Absent: lymphadenopathy - Respiratory Respiratory exam: Present: CTAB. Absent: accessory muscle use, rales, rhonchi, wheezes - Cardiovascular Cardiovascular exam: Present: RRR, +S1, +S2. Absent: diastolic murmur, gallop, rubs, systolic murmur - GI/Abdominal GI/Abdominal exam: Present: normal bowel sounds, soft, no peritoneal signs. Absent: distended, tenderness - Extremities Exam Extremities exam: Present: warm, radial pulses palpable and symmetrical. Absent : calf tenderness, cyanotic, pedal edema - Neurological Exam Neurological exam: Present: CN II-XII intact, oriented X3, no focal deficits. Absent: pronater drift, facial droop, speech deficit - Skin Skin exam: Present: dry, intact Internal Medicine: Result - Labs CBC & Chem 7: 02/02/17 04:40 02/02/17 04:40 - ABG Interpretation ABG results: ABG ABG pH 7.38 pH Units (7.32-7.45) 02/01/17 06:21 ABG pCO2 93 mmHg (35-45) H* 02/01/17 06:21 ABG pO2 85 mmHg (85-104) 02/01/17 06:21 ABG O2 Saturation 95 % (95-98) 02/01/17 06:21 Consult Discharge Plan - Plan Referrals: Francisco Javier Torres DO [Resident] - (please call an appt. upon d/c) Prescriptions: RX: Ciprofloxacin OPTH Soln [Ciloxan OPTH Soln] 2 drop LEFT EYE Q4HR #1 bottle Clindamycin [Cleocin] 450 mg PO Q8HR #24 capsule levoFLOXacin [Levaquin] 750 mg PO DAILY 4 Days #4 tablet predniSONE [PredniSONE] 10 mg PO DAILY 12 Days tablet <Eloy Tariq - Last Filed: 02/07/17 14:45> Date of Encounter: 02/07/17 - Constitutional Vitals: Temp Pulse Resp BP Pulse Ox 97.5 F L 80 16 117/66 97 02/07/17 11:09 02/07/17 11:09 02/07/17 11:09 02/07/17 11:09 02/07/17 11:09 Internal Medicine: Result - Labs CBC & Chem 7: 02/02/17 04:40 02/02/17 04:40 - ABG Interpretation ABG results: ABG ABG pH 7.38 pH Units (7.32-7.45) 02/01/17 06:21 ABG pCO2 93 mmHg (35-45) H* 02/01/17 06:21 ABG pO2 85 mmHg (85-104) 02/01/17 06:21 ABG O2 Saturation 95 % (95-98) 02/01/17 06:21 - Attending Attestation I examined this patient and my medical decision-making was reviewed with the Resident Physician. I agree with the documented findings, disposition and treatment plan as described except to the extent set forth below. I have seen and examined the patient. She is stable for discharge to ECF today. No other acute events or complaints.
[2017-02-07] MEDS: Furosemide 40 MG TABLET PO SCH (08:42)
[2017-02-07] MEDS: APIXABAN 5 MG TABLET PO SCH (08:42)
[2017-02-07] MEDS: predniSONE 20 MG TABLET PO SCH (08:42)
[2017-02-07] MEDS: Cyanocobalamin (B-12) 1,000 MCG TABLET PO SCH (08:43)
[2017-02-07] MEDS: Cholecalciferol (D-3) 1,000 UNIT TABLET PO SCH (08:43)
[2017-02-07] MEDS: Aspirin 81 MG TAB.CHEW PO SCH (08:43)
[2017-02-07] MEDS: Loratadine 10 MG TABLET PO SCH (08:43)
[2017-02-07 11:12] VITALS: BP 117/66
--- NOTE | 2017-02-07 13:58 | Physician Discharge Referral ---
<Tr Coffman - Last Filed: 02/07/17 13:55> [facility] Referral Info Transfer To: [facility] Provider in Charge: Des Hardy Provider in Charge after Transfer: PCP Institutional Level of Care: Skilled - Diagnosis (1) Acute and chronic respiratory failure with hypercapnia Priority: Primary Status: Acute (2) Diastolic CHF, chronic Priority: Primary Status: Chronic (3) Atrial fibrillation Priority: Primary Status: Chronic (4) CKD (chronic kidney disease) stage 3, GFR 30-59 ml/min Priority: Primary Status: Chronic (5) Hallucination Priority: Secondary Status: Acute (6) Conjunctivitis Priority: Primary Status: Acute Expected Duration of Placement: 2 weeks Prognosis: Good Aware of Diagnosis: Patient Aware of Prognosis: Patient - Transfer Medications Prescriptions: RX: Ciprofloxacin OPTH Soln [Ciloxan OPTH Soln] 2 drop LEFT EYE Q4HR #1 bottle Clindamycin [Cleocin] 450 mg PO Q8HR #24 capsule levoFLOXacin [Levaquin] 750 mg PO DAILY 4 Days #4 tablet predniSONE [PredniSONE] 10 mg PO DAILY 12 Days tablet Home Medications: RX: Aspirin 81 mg PO DAILY 06/20/15 [History] RX: Cyanocobalamin (Vitamin B-12) [B-12] 1,000 mcg PO DAILY 06/20/15 [History] RX: Simvastatin [Zocor] 40 mg PO HS 06/20/15 [History] RX: Pantoprazole Sodium [Protonix] 40 mg PO BID #60 tablet. 11/08/15 [Rx] RX: Labetalol HCl 200 mg PO DAILY 01/26/16 [History] RX: Albuterol Sulfate [Ventolin Hfa] 2 puff IH Q4-6H PRN 11/02/16 [History] RX: Budesonide/Formoterol 160/4.5 [Symbicort 160/4.5] 2 puff IH BIDR 11/02/16 [ History] RX: Calcitriol [Rocaltrol] 0.25 mcg PO DAILY 11/02/16 [History] RX: Citalopram Hydrobromide [Celexa] 40 mg PO DAILY 11/02/16 [History] RX: Acetaminophen [Tylenol] 650 mg PO Q6HR PRN tab 11/04/16 [Rx] Apixaban [Eliquis] 5 mg PO BID 01/29/17 [History] Cholecalciferol (Vitamin D3) [Vitamin D] 1,000 unit PO DAILY 01/29/17 [History] Furosemide [Lasix] 40 mg PO BID 01/29/17 [History] Clindamycin [Cleocin] 450 mg PO Q8HR #24 capsule 02/03/17 [Rx] RX: Ciprofloxacin OPTH Soln [Ciloxan OPTH Soln] 2 drop LEFT EYE Q4HR #1 bottle 02/03/17 [Rx] levoFLOXacin [Levaquin] 750 mg PO DAILY 4 Days #4 tablet 02/03/17 [Rx] predniSONE [PredniSONE] 10 mg PO DAILY 12 Days tablet 02/03/17 [Rx] Allergies/Adverse Reactions: 3 Allergy/AdvReac Type Severity Reaction Status Date / Time Penicillins [PCN] Allergy Hives Verified 01/26/16 11:14 - Respiratory Orders Oxygen / L per min (3L via NC) Smoking Cessation: Smoking cessation has been advised. For more information, call the [employer] Line at 3-885-MFNXNOW. - Ancillary Orders May use pressure relief devices daily prn, May go on MIKO w/family/respon constitution party w /meds at nurse discretion PRN, May consult with Dentist, Oyster Preparer, Home Staging Specialist PRN - Advance Directives Living Will: Yes Power of Audit Partner: Yes Code Status: Full Code - Mobility Orders Ambulate - Rehabiliation Orders Rehab Potential: Good Rehab Orders: Evaluation for Physical Therapy - Diet Orders Regular CERTIFICATION: I certify that the transfer of the above named patient to an Extended Care Facility is necessary for the continuing treatment of the diagnosis listed. The above information is true and accurate reflection of patient's current condition. Confidential - Redisclosure prohibited without a patient's written consent. <Eloy Tariq - Last Filed: 02/07/17 14:45> - Respiratory Orders Smoking Cessation: Smoking cessation has been advised. For more information, call the [employer] Quit Line at 9-146-FSZB-NOW. CERTIFICATION: I certify that the transfer of the above named patient to an Extended Care Facility is necessary for the continuing treatment of the diagnosis listed. The above information is true and accurate reflection of patient's current condition. Confidential - Redisclosure prohibited without a patient's written consent.
== END 2017-02-07 15:02 | DRG 291 ==
LOC: EMEROO 10:54 → 2ANU 10:54 → SUATTDRO 14:34 → 2ANU 15:16
PROVIDERS: ADMIT Hospitalist; ATTEND Internal Medicine

== ENCOUNTER 2017-02-19 11:30 | Observation (INO) ==
[2017-02-19 12:39] LABS: Basophils % 0.2 %; Eosinophils # 0.3 K/mcL (0.0-0.6); Eosinophils % 2.8 %; Hematocrit 35.1 % (35.3-44.9); Hemoglobin 10.4 g/dL (11.5-15.4); Immature Granulocytes % 0.6 % (0-4); Lymphocytes # 0.4 K/mcL (0.6-4.6); Mean Corpuscular HGB Conc 29.6 g/dL (31.6-35.5); Mean Corpuscular Hemoglobin 27.4 pg (28.0-33.3); Mean Corpuscular Volume 92.6 fL (83.0-100.0); Monocytes # 0.3 K/mcL (0.0-1.3); Monocytes % 3.1 %; Platelet Count 130 K/mcL (140-400); Red Blood Count 3.79 M/mcL (3.82-4.97); Red Cell Distribution Width 14.6 % (11.5-14.5); Segmented Neutrophils % 89.3 %
[2017-02-19 12:56] LABS: INR 1.3; Prothrombin Time 13.6 Seconds (9.4-12.1)
[2017-02-19 13:00] LABS: Albumin 3.4 g/dL (3.5-5.7); Albumin/Globulin Ratio 1.5 (1.1-2.2); Bilirubin,Direct 0.1 mg/dL (0.0-0.2); Bilirubin,Indirect 0.6 mg/dL (0.0-1.2); Bilirubin,Total 0.7 mg/dL (0.3-1.0); Calcium 8.6 mg/dL (8.6-10.3); Globulin 2.2 g/dL (2.4-3.5); Potassium 3.7 mEq/L (3.5-5.1); Total Protein 5.6 g/dL (6.4-8.9)
--- NOTE | 2017-02-19 13:00 | Emergency Department Note ---
Disposition Clinical Impression: Acute exacerbation of chronic obstructive airways disease, Atrial fibrillation , CHF exacerbation Disposition: Admitted As Inpatient Condition: Fair Time of Disposition: 15:21 General Adult HPI - General Chief complaint: ED Nausea/Vomiting/Diarrhea Stated complaint: N/V/D Time Seen by Provider: 02/19/17 11:33 Source: patient, EMS Mode of arrival: EMS Limitations: no limitations Nursing Notes Reviewed: Yes Vital Signs Reviewed: Yes - History of Present Illness HPI Narrative: Patient presents to the ED via EMS and was seen and evaluated upon arrival. Patient is an 82-year-old female with history of COPD, CHF, and recently pneumonia. Was admitted to the hospital for 10 days and discharged to a nursing facility on BiPAP for about a week. She reports she was just discharged from the nursing facility back home 2 days ago. States that she was not sent home with her BiPAP and her breathing has gradually gotten worse to the point today where she needed to call EMS again. According to her medical record. She was discharged on clindamycin and Levaquin for her pneumonia and she states since she got home she has been sick at her stomach having a few episodes of nonbloody, nonbilious vomiting and several episodes of watery, non- foul-smelling diarrhea. She has no associated abdominal pain with this. She states she just feels very rundown, weak and tired. Pain Scale: 8 - Related Data Home Medications Medication Instructions Recorded Confirmed Aspirin 81 mg PO DAILY 06/20/15 02/19/17 Cyanocobalamin (Vitamin B-12) 1,000 mcg PO DAILY 06/20/15 02/19/17 [B-12] Simvastatin [Zocor] 40 mg PO HS 06/20/15 02/19/17 Labetalol HCl 200 mg PO DAILY 01/26/16 02/19/17 Albuterol Sulfate [Ventolin Hfa] 2 puff IH Q4-6H PRN 11/02/16 02/19/17 Budesonide/Formoterol 160/4.5 2 puff IH BIDR 11/02/16 02/19/17 [Symbicort 160/4.5] Calcitriol [Rocaltrol] 0.25 mcg PO DAILY 11/02/16 02/19/17 Citalopram Hydrobromide [Celexa] 40 mg PO DAILY 11/02/16 02/19/17 Apixaban [Eliquis] 5 mg PO BID 01/29/17 02/19/17 Cholecalciferol (Vitamin D3) 1,000 unit PO DAILY 01/29/17 02/19/17 [Vitamin D] Furosemide [Lasix] 40 mg PO BID 01/29/17 02/19/17 Oxygen 4 l NS AD 02/19/17 02/19/17 Pantoprazole Sodium [Protonix] 40 mg PO DAILY 02/19/17 02/19/17 Allergies Allergy/AdvReac Type Severity Reaction Status Date / Time Penicillins [PCN] Allergy Hives Verified 01/26/16 11:14 All systems ED: reviewed and negative except as stated. Constitutional: Reports: weakness. Denies: fever Cardiovascular: Denies: chest pain Respiratory: Reports: cough, dyspnea, wheezes, sputum production Gastrointestinal: Reports: nausea, vomiting, diarrhea. Denies: abdominal pain Integumentary: Denies: rash Neurological: Reports: weakness. Denies: headache Endocrine: Reports: fatigue Past Medical History - Past Medical History Attestation: Yes The following information was validated with the patient. Source: patient Medical history: Reports: arthritis, atrial fibrillation, CHF, COPD, coronary artery disease, GERD, hyperlipidemia, hypertension, osteoporosis, renal disease , other Surgical history: Reports: appendectomy, cholecystectomy, hysterectomy, other ( Spinal fusion/back surgery, hemorrhoidectomy, last echocardiogram was from June 2015 showing a normal ejection fraction) Psychiatric history: Reports: anxiety, depression CIRCULAR [place] history: Reports: no CIRCULAR [place] history - Social History Smoking Status: Former smoker Smokeless Tobacco Status: No Alcohol use: Reports: none Drug use: Reports: none Physical Exam - General Limitations: no limitations General appearance: alert, in distress (mild resp ) - Head Head exam: atraumatic, normocephalic, normal inspection - Eye Eye exam: Present: normal appearance, PERRL, EOMI - ENT ENT exam: mucous membranes dry - Neck Neck exam: Present: normal inspection, full ROM, trachea midline - Chest Chest inspection: Present: normal inspection, symmetric chest wall rise - Respiratory Respiratory exam: Present: respiratory distress, wheezes, other (coarse, wet sounding b/l, unable to discern if rales are present ). Absent: normal lung sounds bilaterally - Cardiovascular Cardiovascular exam: Present: regular rate, normal rhythm, normal heart sounds - Abdominal Exam Abdominal exam: Present: soft, Non-Tender, hyperactive bowel sounds. Absent: tenderness, distention, guarding, rebound, normal bowel sounds - Extremities Exam Extremities exam: Present: normal capillary refill, pedal edema - Expanded Lower Extremity Exam Hip/Pelvis exam: Present: pelvis stable - Neurological Exam Neurological exam: Present: alert, oriented X3 - Psychiatric Psychiatric exam: Present: normal affect, normal mood - Skin Skin exam: Present: warm, dry, intact, normal color Course Course Narrative: Patient presenting to the ED with shortness of breath, malaise, nausea, vomiting , diarrhea. Recently discharged from hospital for pneumonia, CHF and COPD. Vision in mild to moderate respiratory distress with wheezing, but does sound volume overloaded. We will place on BiPAP and order labs. Patient will need to be re-admitted. - Reevaluation(s) Reevaluation #1: Patient has a BNP of almost 500, which is lower than previous. Her chest x-ray does not show any pulmonary edema. Respiratory status has markedly improved on BiPAP. She is now much more awake, asking to eat and drink. Patient admitted, hospitalist service. 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 - Lab Data Lab results reviewed: Yes I reviewed the patient's lab results. Result diagrams: 02/19/17 12:22 02/19/17 12:22 Lab Results 01/01/18 01/01/18 01/01/18 Range/Units 12:22 12:22 12:22 WBC 10.1 (4.3-11.1) K/mcL RBC 3.79 L (3.82-4.97) M/mcL Hgb 10.4 L (11.5-15.4) g/dL Hct 35.1 L (35.3-44.9) % MCV 92.6 (83.0-100.0) fL MCH 27.4 L (28.0-33.3) pg MCHC 29.6 L (31.6-35.5) g/dL RDW 14.6 H (11.5-14.5) % Plt Count 130 L (140-400) K/mcL MPV 10.0 (9.4-12.4) fL Immature Gran % 0.6 (0-4) % Seg Neutrophils % 89.3 % Lymphocytes % 4.0 % Monocytes % 3.1 % Eosinophils % 2.8 % Basophils % 0.2 % Neutrophils # 9.0 H (1.6-8.9) K/mcL Lymphocytes # 0.4 L (0.6-4.6) K/mcL Monocytes # 0.3 (0.0-1.3) K/mcL Eosinophils # 0.3 (0.0-0.6) K/mcL Basophils # 0.0 (0.0-0.2) K/mcL PT 13.6 H (9.4-12.1) Seconds INR 1.3 APTT 28.0 (26.0-36.0) Seconds VBG pH (7.32-7.42) pH Units VBG pCO2 (41-51) mmHg VBG pO2 (25-50) mmHg VBG HCO3 (21-27) mEq/L Sodium 138 (136-145) mEq/L Potassium 3.7 (3.5-5.1) mEq/L Chloride 91 L (98-107) mEq/L Carbon Dioxide 41 H* (23-29) mEq/L BUN 20 (8-23) mg/dL Creatinine 1.56 H (0.60-1.20) mg/dL Est GFR ( Amer) 38 L (> 60) Est GFR (Non-Af Amer) 32 L (> 60) BUN/Creatinine Ratio 13 (6-26) Glucose 122 H (70-105) mg/dL Calculated Osmolality 290 (280-300) Lactic Acid (0.5-2.2) mmol/L Calcium 8.6 (8.6-10.3) mg/dL Total Bilirubin 0.7 (0.3-1.0) mg/dL Direct Bilirubin 0.1 (0.0-0.2) mg/dL Indirect Bilirubin 0.6 (0.0-1.2) mg/dL AST 21 (13-39) Units/L ALT 14 (7-52) Units/L Alkaline Phosphatase 47 (34-104) Units/L Troponin I (< 0.04) ng/mL B-Natriuretic Peptide (Less than 100) pg/mL Serum Total Protein 5.6 L (6.4-8.9) g/dL Albumin 3.4 L (3.5-5.7) g/dL Globulin 2.2 L (2.4-3.5) g/dL Albumin/Globulin Ratio 1.5 (1.1-2.2) Urine Color (Yellow) Urine Clarity (Clear) Urine pH (5.0-8.0) pH Units Ur Specific [place] [employer] (1.010-1.025) Urine Protein (Neg-Trace) mg/dL Urine Glucose (UA) (Normal) mg/dL Urine Ketones (Negative) mg/dL Urine Blood (Negative) Urine Nitrite (Negative) Urine Bilirubin (Negative) Urine Urobilinogen (Normal) mg/dL Ur Leukocyte Esterase (Negative) Urine Microscopic RBC (0-3) per hpf Urine Microscopic WBC (0-3) per hpf Ur Squamous Epith Cells (None-Few) per lpf Urine Bacteria (None-Few) per hpf Hyaline Casts (None-Few) per lpf Urine Yeast (None Seen) per hpf Ur Culture Indicated? (NO) 02/19/17 02/19/17 02/19/17 Range/Units 12:22 12:22 12:22 WBC (4.3-11.1) K/mcL RBC (3.82-4.97) M/mcL Hgb (11.5-15.4) g/dL Hct (35.3-44.9) % MCV (83.0-100.0) fL MCH (28.0-33.3) pg MCHC (31.6-35.5) g/dL RDW (11.5-14.5) % Plt Count (140-400) K/mcL MPV (9.4-12.4) fL Immature Gran % (0-4) % Seg Neutrophils % % Lymphocytes % % Monocytes % % Eosinophils % % Basophils % % Neutrophils # (1.6-8.9) K/mcL Lymphocytes # (0.6-4.6) K/mcL Monocytes # (0.0-1.3) K/mcL Eosinophils # (0.0-0.6) K/mcL Basophils # (0.0-0.2) K/mcL PT (9.4-12.1) Seconds INR APTT (26.0-36.0) Seconds VBG pH (7.32-7.42) pH Units VBG pCO2 (41-51) mmHg VBG pO2 (25-50) mmHg VBG HCO3 (21-27) mEq/L Sodium (136-145) mEq/L Potassium (3.5-5.1) mEq/L Chloride (98-107) mEq/L Carbon Dioxide (23-29) mEq/L BUN (8-23) mg/dL Creatinine (0.60-1.20) mg/dL Est GFR ( Amer) (> 60) Est GFR (Non-Af Amer) (> 60) BUN/Creatinine Ratio (6-26) Glucose (70-105) mg/dL Calculated Osmolality (280-300) Lactic Acid 1.1 (0.5-2.2) mmol/L Calcium (8.6-10.3) mg/dL Total Bilirubin (0.3-1.0) mg/dL Direct Bilirubin (0.0-0.2) mg/dL Indirect Bilirubin (0.0-1.2) mg/dL AST (13-39) Units/L ALT (7-52) Units/L Alkaline Phosphatase (34-104) Units/L Troponin I 0.06 H* (< 0.04) ng/mL B-Natriuretic Peptide 498 H (Less than 100) pg/mL Serum Total Protein (6.4-8.9) g/dL Albumin (3.5-5.7) g/dL Globulin (2.4-3.5) g/dL Albumin/Globulin Ratio (1.1-2.2) Urine Color (Yellow) Urine Clarity (Clear) Urine pH (5.0-8.0) pH Units Ur Specific [place] [employer] (1.010-1.025) Urine Protein (Neg-Trace) mg/dL Urine Glucose (UA) (Normal) mg/dL Urine Ketones (Negative) mg/dL Urine Blood (Negative) Urine Nitrite (Negative) Urine Bilirubin (Negative) Urine Urobilinogen (Normal) mg/dL Ur Leukocyte Esterase (Negative) Urine Microscopic RBC (0-3) per hpf Urine Microscopic WBC (0-3) per hpf Ur Squamous Epith Cells (None-Few) per lpf Urine Bacteria (None-Few) per hpf Hyaline Casts (None-Few) per lpf Urine Yeast (None Seen) per hpf Ur Culture Indicated? (NO) 02/19/17 02/19/17 02/19/17 Range/Units 12:57 14:16 14:28 WBC (4.3-11.1) K/mcL RBC (3.82-4.97) M/mcL Hgb (11.5-15.4) g/dL Hct (35.3-44.9) % MCV (83.0-100.0) fL MCH (28.0-33.3) pg MCHC (31.6-35.5) g/dL RDW (11.5-14.5) % Plt Count (140-400) K/mcL MPV (9.4-12.4) fL Immature Gran % (0-4) % Seg Neutrophils % % Lymphocytes % % Monocytes % % Eosinophils % % Basophils % % Neutrophils # (1.6-8.9) K/mcL Lymphocytes # (0.6-4.6) K/mcL Monocytes # (0.0-1.3) K/mcL Eosinophils # (0.0-0.6) K/mcL Basophils # (0.0-0.2) K/mcL PT (9.4-12.1) Seconds INR APTT (26.0-36.0) Seconds VBG pH 7.31 L (7.32-7.42) pH Units VBG pCO2 81 H* (41-51) mmHg VBG pO2 40 (25-50) mmHg VBG HCO3 41 H (21-27) mEq/L Sodium (136-145) mEq/L Potassium (3.5-5.1) mEq/L Chloride (98-107) mEq/L Carbon Dioxide (23-29) mEq/L BUN (8-23) mg/dL Creatinine (0.60-1.20) mg/dL Est GFR ( Amer) (> 60) Est GFR (Non-Af Amer) (> 60) BUN/Creatinine Ratio (6-26) Glucose (70-105) mg/dL Calculated Osmolality (280-300) Lactic Acid 0.9 (0.5-2.2) mmol/L Calcium (8.6-10.3) mg/dL Total Bilirubin (0.3-1.0) mg/dL Direct Bilirubin (0.0-0.2) mg/dL Indirect Bilirubin (0.0-1.2) mg/dL AST (13-39) Units/L ALT (7-52) Units/L Alkaline Phosphatase (34-104) Units/L Troponin I (< 0.04) ng/mL B-Natriuretic Peptide (Less than 100) pg/mL Serum Total Protein (6.4-8.9) g/dL Albumin (3.5-5.7) g/dL Globulin (2.4-3.5) g/dL Albumin/Globulin Ratio (1.1-2.2) Urine Color Yellow (Yellow) Urine Clarity Cloudy A (Clear) Urine pH 6.5 (5.0-8.0) pH Units Ur Specific [place] [employer] 1.023 (1.010-1.025) Urine Protein 100 H (Neg-Trace) mg/dL Urine Glucose (UA) Normal (Normal) mg/dL Urine Ketones Negative (Negative) mg/dL Urine Blood Small H (Negative) Urine Nitrite Negative (Negative) Urine Bilirubin Negative (Negative) Urine Urobilinogen Normal (Normal) mg/dL Ur Leukocyte Esterase Negative (Negative) Urine Microscopic RBC 5-15 H (0-3) per hpf Urine Microscopic WBC 5-15 H (0-3) per hpf Ur Squamous Epith Cells Many H (None-Few) per lpf Urine Bacteria None Seen (None-Few) per hpf Hyaline Casts Few (None-Few) per lpf Urine Yeast Few H (None Seen) per hpf Ur Culture Indicated? NO (NO) - Radiology Data Radiology results reviewed: Yes I reviewed the patient's radiology results. - EKG Data EKG #1 EKG attestation: Yes I reviewed and interpreted this EKG. EKG results narrative: A. fib with RVR, rate 106, QRS 78, QTC 42, normal axis, no acute ischemic changes Attestation Statement - Attestation Attestation: I examined this patient and my medical decision-making was reviewed with the Resident Physician, Dr. Pompa. I agree with the documented findings, disposition and treatment plan as described except to the extent set forth below. Patient is an 82-year-old white female with a history of CHF and COPD who presents to the emergency department by EMS today with gradually worsening shortness of breath. Patient was recently hospitalized for approximately 10 days with pneumonia and acute exacerbation of COPD discharged to an [facility] on BiPAP and was placed on clindamycin and Levaquin. Patient was discharged from the extended care facility to home 2 days ago but was not sent with her BiPAP and over the last 2 days has had gradually worsening shortness of breath, increased fatigue and malaise, decreased appetite, and a few episodes of vomiting and loose watery stools. Patient denies any fevers or chills, no chest pain pressure or heaviness, no abdominal pain associated with the vomiting or diarrhea, and no blood in the stool. I agree patient's physical exam findings as documented. Patient was placed back on BiPAP on arrival to the ED, EKG was obtained showing atrial fibrillation with mild tachycardia likely due to mild dehydration. No ischemia was appreciated patient has a history of A. fib on blood thinners. Patient's chest x-ray was within normal limits no pulmonary edema or infiltrate was appreciated. Patient improved significantly while here on BiPAP, with improvement status, asking for something to eat and drink and was denying any symptoms currently. Patient has not had any vomiting or loose stools on the ED. Patient will be admitted to the hospitalist service for ongoing BiPAP and resolution of any issues that prevented her from going home with the BiPAP previously. Case was discussed with the hospitalist.
[2017-02-19 13:07] LABS: Bilirubin,Urine Negative (Negative); Blood,Urine Small (Negative); Clarity,Urine Cloudy (Clear); Color,Urine Yellow (Yellow); Glucose,Urine (UA) Normal (Normal); Ketones,Urine Negative (Negative); Leukocyte Esterase,Urine Negative (Negative); Nitrite,Urine Negative (Negative); PH,Urine 6.5 pH Units (5.0-8.0); Protein,Urine 100 mg/dL (Neg-Trace); Specific Gravity,Urine 1.023 (1.010-1.025); Urobilinogen,Urine Normal (Normal)
[2017-02-19 13:10] LABS: Bacteria,Urine None Seen per hpf (None-Few); Hyaline Casts,Urine Few per lpf (None-Few); Squamous Epithelial Cell,Urine Many per lpf (None-Few)
[2017-02-19] MEDS ORDERED: methylPREDNISolone 125 MG/2 ML VIAL IVP ONE (13:16)
[2017-02-19] MEDS ORDERED: Ipratropium/Albuterol Neb 3 ML IH ONE (13:16)
[2017-02-19 13:22] LABS: Yeast,Urine Few per hpf (None Seen)
[2017-02-19] MEDS ORDERED: Aspirin 325 MG TABLET PO ONE (13:30)
[2017-02-19 14:31] LABS: VBG HCO3 41 mEq/L (21-27); VBG PCO2 81 mmHg (41-51); VBG PH 7.31 pH Units (7.32-7.42); VBG PO2 40 mmHg (25-50)
[2017-02-19] MEDS ORDERED: Ondansetron 4 MG/2 ML VIAL IVP PRN (16:12)
[2017-02-19] MEDS ORDERED: *HR* Morphine 2 MG/ML SYRINGE IVP PRN (16:12)
[2017-02-19] MEDS ORDERED: Acetaminophen 325 MG TABLET PO PRN (16:12)
[2017-02-19] MEDS ORDERED: Naloxone 0.4 MG/ML INJ IVP PRN (16:12)
[2017-02-19] MEDS ORDERED: NON-FORMULARY MEDICATION 1 EACH EACH (Oxygen [Oxygen] 4 L) NS SCH (16:15)
[2017-02-19] MEDS ORDERED: 0.9 % Sodium Chloride 500 ML ONE (16:19)
--- NOTE | 2017-02-19 17:33 | Internal Med History&Physical ---
Date of Encounter: 02/19/17 Time of Encounter: 17:10 Assessment and Plan (1) Generalized weakness Current visit: Yes Status: Acute Generalized weakness with nausea and vomiting - likely causing dehydration - secondary to poor PO intake Although BNP is elevated, patient seems to be dehydrated Continue small IV fluid boluses for hypotension, watch for fluid overload Continue DuoNeb breathing treatment, IV Solu-Medrol, home meds UA - negative nitrite, negative leukocyte esterase Chest x-ray - no acute process Cardiac telemetry, pulse ox, monitor closely, labs in a.m. (2) COPD exacerbation Current visit: Yes Status: Acute Acute exacerbation of COPD Continue DuoNeb breathing treatment, IV Solu-Medrol, Symbicort, O2 via nasal cannula BiPAP as needed and at night Chest x-ray - no acute process EKG - atrial fibrillation with no acute ST-T changes Troponin - 0.06, chronically elevated likely due to CHF and demand ischemia, cycle troponin BNP - 498 CO2 - 41 Cardiac telemetry, pulse ox, labs in a.m., monitor closely (3) Atrial fibrillation Current visit: Yes Status: Chronic Chronictrial fibrillation, rate controlled Continue home dose of Eliquis for anticoagulation Continue Labetalol Qualifiers: Atrial fibrillation type: chronic Qualified Code(s): I48.2 - Chronic atrial fibrillation (4) CHF (congestive heart failure) Current visit: Yes Status: Chronic Chronic diastolic CHF with LVEF 60-65% Continue home dose of Labetalol, Lasix Hold antihypertensives due to hypotension Qualifiers: Congestive heart failure type: diastolic Congestive heart failure chronicity: chronic Qualified Code(s): I50.32 - Chronic diastolic (congestive ) heart failure (5) CKD (chronic kidney disease) stage 3, GFR 30-59 ml/min Current visit: Yes Status: Chronic Chronic kidney disease stage III - stable Repeat labs in a.m., Monitor closely (6) Dyslipidemia Current visit: Yes Status: Chronic Continue Zocor (7) Essential hypertension Current visit: Yes Status: Chronic Essential hypertension, hypotensive, monitor closely Hold antihypertensive medications for now (8) DVT prophylaxis Current visit: Yes Status: Acute Continue home dose of Eliquis Internal Medicine - H&P: HPI Chief complaint: Generalized weakness, vomiting Admitted From: Emergency Dept Plans for Post Hospital Care: Home History of present illness: Ms. Hutchinson is a 82 year old female with past medical history of atrial fibrillation, CHF, COPD, CAD, GERD, hyperlipidemia, hypertension, osteoporosis, renal disease, anxiety and depression. Patient presents to the ED with complaints of generalized weakness and vomiting. Examined in the room. Patient is awake and alert. Not in any distress. Able to provide all history. Son and granddaughter are at bedside. Patient was recently discharged from the hospital to [facility]. She was then discharged from [facility] to home about 2 days ago. Patient states ever since she got home she has been having generalized weakness and also has a poor appetite. Family states that patient is not her usual self in terms of generalized weakness. patient also states that she is supposed to be on BiPAP, but this cannot be set up for the next few weeks, as she needs another sleep study. Patient denies chest pain, denies shortness of breath, denies palpitations, denies headache. No fever. Denies abdominal pain. Complains of mild nausea and vomiting. No diarrhea. States she has been taking all her medications regularly. No other acute events or complaints at this time. Initial workup in the ED is significant for elevated CO2 level and elevated BNP. Patient also has chronically elevated troponin. Patient was given a breathing treatment and Solu-Medrol in the ED for probable COPD exacerbation. Although her BNP is elevated she does not seem fluid and she seems dry. At this time the main concern is hypotension, and we will give small boluses to improve her blood pressure. Patient and family have been explained about guarded condition and plan of care in detail. They understood and agreed. No unanswered questions. CODE STATUS full code. Past Med Surg Social Fam HX - Past Medical History Medical history: arthritis, atrial fibrillation, CHF, COPD, coronary artery disease, GERD, hyperlipidemia, hypertension, osteoporosis, renal disease, other Psychiatric history: anxiety, depression - Past Surgical History Surgical History: appendectomy, cholecystectomy, hysterectomy, other - Social History Smoking Status: Former smoker Smokeless Tobacco Status: No Alcohol use: none Drug use: none - Family History Mother Adopted: No Family Member Ethnicity: Non- Twin of Family Member: Yes, Fraternal Living Status: Hx Family Cardiac Disorders: Yes (pacemaker, CHF) Hx Family Respiratory Disorders: No Hx Family Cancer: Yes (colon cancer) Hx Family GI Disorders: Yes Hx Family Endocrine Disorder: No Hx Family Neuromuscular Disorders: No Hx Family Neurologic Disorders: No Hx Family HEENT Disorders: Yes (Swallowing issues) Hx Family Autoimmune Disorders: No Internal Medicine - H&P: Meds Aspirin 81 mg PO DAILY 06/20/15 [History] Cyanocobalamin (Vitamin B-12) [B-12] 1,000 mcg PO DAILY 06/20/15 [History] Simvastatin [Zocor] 40 mg PO HS 06/20/15 [History] Labetalol HCl 200 mg PO DAILY 01/26/16 [History] Albuterol Sulfate [Ventolin Hfa] 2 puff IH Q4-6H PRN 11/02/16 [History] Budesonide/Formoterol 160/4.5 [Symbicort 160/4.5] 2 puff IH BIDR 11/02/16 [ History] Calcitriol [Rocaltrol] 0.25 mcg PO DAILY 11/02/16 [History] Citalopram Hydrobromide [Celexa] 40 mg PO DAILY 11/02/16 [History] Apixaban [Eliquis] 5 mg PO BID 01/29/17 [History] Cholecalciferol (Vitamin D3) [Vitamin D] 1,000 unit PO DAILY 01/29/17 [History] Furosemide [Lasix] 40 mg PO BID 01/29/17 [History] Oxygen 4 l NS AD 02/19/17 [History] Pantoprazole Sodium [Protonix] 40 mg PO DAILY 02/19/17 [History] 3 Allergy/AdvReac Type Severity Reaction Status Date / Time Penicillins [PCN] Allergy Hives Verified 01/26/16 11:14 All Systems PM: A 10-system review of systems was performed and is negative for pertinent findings except as documented above in the HPI. - Constitutional Constitutional: fatigue, weakness, no chills, no fever(s) - EENT Eyes: no blurry vision Nose, mouth and throat: dry mouth - Cardiovascular Cardiovascular ROS IM: no chest pain, no diaphoresis, no dyspnea, no dyspnea on exertion, no lightheadedness, no orthopnea, no palpitations, no syncope - Respiratory Respiratory: no cough, no dyspnea, no hemoptysis, no dyspnea on exertion, no wheezing, no chest congestion - Gastrointestinal Gastrointestinal: nausea, vomiting, no abdominal pain, no bloating, no constipation, no diarrhea, no dyspepsia, no hematemesis, no hematochezia, no loose stools - Genitourinary Genitourinary: no dysuria - Musculoskeletal Musculoskeletal ROS IM: no back pain - Neurological Neurological ROS: no abnormal gait, no confusion, no convulsions, no dizziness, no focal weakness, no loss of vision, no numbness, no tingling - Constitutional Vitals: Temp Pulse Resp BP Pulse Ox 98.5 F 105 17 79/55 93 02/19/17 16:01 02/19/17 16:01 02/19/17 16:02/19/17 16:02/19/17 16:01 General appearance: Present: cooperative, A&O X 3, pleasant, no acute distress, answers questions appropriately Exam: Generalized weakness. Frail. Chronically ill-appearing. - Head Head exam: Present: atraumatic - Eye Eye exam: Present: EOMI - ENT ENT exam: Present: mucous membranes dry - Respiratory Respiratory exam: Present: rhonchi (Mild bilateral), wheezes (Vital bilateral). Absent: accessory muscle use, chest wall tenderness, rales, respiratory distress, tachypnea - Cardiovascular Cardiovascular exam: Present: RRR, +S1, +S2 - GI/Abdominal GI/Abdominal exam: Present: soft. Absent: distended, firm, guarding, tenderness - Extremities Exam Extremities exam: Present: radial pulses palpable and symmetrical. Absent: calf tenderness, cyanotic, pedal edema - Neurological Exam Neurological exam: Present: alert, CN II-XII intact, oriented X3, no focal deficits. Absent: facial droop, speech deficit Internal Med - H&P Results - Labs CBC & Chem 7: 02/19/17 12:22 02/19/17 12:22
[2017-02-19] MEDS: Furosemide 40 MG TABLET PO SCH (17:47)
[2017-02-19] MEDS: Apixaban 5 MG TABLET PO SCH (20:52)
[2017-02-19] MEDS: Budesonide/Formoterol 160/4.5 MDI IH SCH (21:21)
[2017-02-19] MEDS: Ipratropium/Albuterol Neb 3 ML IH SCH (21:21)
[2017-02-19] MEDS: methylPREDNISolone 125 MG/2 ML VIAL IVP SCH (23:16)
[2017-02-20] MEDS: Ipratropium/Albuterol Neb 3 ML IH SCH ×6 (00:23→19:56)
[2017-02-20 05:15] LABS: ABG Base Excess 10 mEq/L (-2 to 3); ABG HCO3 36 mEq/L (21-27); ABG Oxygen Saturation 95 % (95-98); ABG PCO2 60 mmHg (35-45); ABG PH 7.39 pH Units (7.32-7.45); ABG PO2 78 mmHg (85-104); ABG TCO2 38 mEq/L (20-26)
[2017-02-20 05:59] LABS: Calcium 8.4 mg/dL (8.6-10.3); Magnesium 1.8 mg/dL (1.6-2.6); Potassium 3.9 mEq/L (3.5-5.1)
[2017-02-20 06:08] LABS: Hematocrit 31.8 % (35.3-44.9); Hemoglobin 9.7 g/dL (11.5-15.4); Immature Granulocytes % 0.3 % (0-4); Lymphocytes # 0.3 K/mcL (0.6-4.6); Mean Corpuscular HGB Conc 30.5 g/dL (31.6-35.5); Mean Corpuscular Hemoglobin 27.7 pg (28.0-33.3); Mean Corpuscular Volume 90.9 fL (83.0-100.0); Mean Platelet Volume 10.6 fL (9.4-12.4); Monocytes # 0.2 K/mcL (0.0-1.3); Monocytes % 1.8 %; Neutrophils # 8.3 K/mcL (1.6-8.9); Platelet Count 115 K/mcL (140-400); Red Cell Distribution Width 14.6 % (11.5-14.5); Segmented Neutrophils % 94.9 %
[2017-02-20] MEDS: Budesonide/Formoterol 160/4.5 MDI IH SCH ×2 (07:40→20:27)
[2017-02-20] MEDS: Cyanocobalamin (B-12) 1,000 MCG TABLET PO SCH (07:45)
[2017-02-20] MEDS: Apixaban 5 MG TABLET PO SCH ×2 (07:45→21:07)
[2017-02-20] MEDS: Furosemide 40 MG TABLET PO SCH ×2 (07:45→16:15)
[2017-02-20] MEDS: Cholecalciferol (D-3) 1,000 UNIT TABLET PO SCH (07:45)
[2017-02-20] MEDS: Aspirin 81 MG TAB.CHEW PO SCH (07:45)
[2017-02-20] MEDS: methylPREDNISolone 125 MG/2 ML VIAL IVP SCH ×3 (07:45→23:34)
--- NOTE | 2017-02-20 16:46 | Electrocardiograph Report ---
[place] [id number] Test Date: 2017-02-19 Pat Name: Hilda Hutchinson Department: 103 Room: 2N14 Gender: F Project Administrative Assistant: ESPINOZA : [id number] Requested By: Shashi Pompa Order Number: [id number] Reading MD: Diego Billingsley DO Measurements Intervals [place] Rate: 106 P: NE: 0 QRS: 73 QRSD: 78 T: -20 QT: 340 QTc: 402 Interpretive Statements ATRIAL FIBRILLATION WITH RAPID VENTRICULAR RESPONSE NONSPECIFIC ST & T-WAVE ABNORMALITY Electronically Signed On 02-20-2017 16:44:53 EST by Diego Billingsley DO
--- NOTE | 2017-02-20 19:09 | Internal Med Progress Note ---
Date of Encounter: 02/20/17 Time of Encounter: 11:00 - Assessment and plan (1) Acute exacerbation of chronic obstructive airways disease Current Visit: Yes Status: Acute Assessment and plan: -Patient currently on 4 L nasal cannula -Continue IV Solu-Medrol with duo nebs (2) Acute and chronic respiratory failure with hypercapnia Current Visit: No Status: Acute Assessment and plan: -Suspect secondary to not wearing BiPAP daily at bedtime -Will Qualify overnight (3) Anemia Current Visit: No Status: Chronic Assessment and plan: -Stable; continue to monitor Qualifiers: Anemia type: iron deficiency Iron deficiency anemia type: unspecified iron deficiency Qualified Code(s): D50.9 - Iron deficiency anemia, unspecified (4) Essential hypertension Current Visit: Yes Status: Chronic Assessment and plan: -Controlled; continue home medications (5) CKD (chronic kidney disease) stage 3, GFR 30-59 ml/min Current Visit: Yes Status: Chronic Assessment and plan: -Stable; continue to monitor (6) DVT prophylaxis Current Visit: Yes Status: Acute Assessment and plan: -On Eliquis - Subjective Interval history: Patient was resolved hypercapnic respiratory failure with COPD exacerbation - Constitutional Vitals: Temp Pulse Resp BP Pulse Ox 98.8 F 108 19 89/54 98 02/20/17 16:00 02/20/17 16:00 02/20/17 16:00 02/20/17 16:00 02/20/17 16:00 General appearance: Present: cooperative, A&O X 3, pleasant, no acute distress, answers questions appropriately - Respiratory Respiratory exam: Present: CTAB. Absent: accessory muscle use, rales, rhonchi, wheezes - Cardiovascular Cardiovascular exam: Present: RRR, +S1, +S2. Absent: diastolic murmur, gallop, rubs, systolic murmur Internal Medicine: Result - Labs CBC & Chem 7: 02/20/17 05:05 02/20/17 05:05 Labs: Short CBC 02/20/17 Range/Units 05:05 WBC 8.7 (4.3-11.1) K/mcL Hgb 9.7 L (11.5-15.4) g/dL Hct 31.8 L (35.3-44.9) % Plt Count 115 L (140-400) K/mcL Neutrophils # 8.3 (1.6-8.9) K/mcL BMP 02/20/17 05:05 Sodium 139 Potassium 3.9 Chloride 94 L Carbon Dioxide 38 H BUN 31 H Creatinine 1.50 H Glucose 129 H Calcium 8.4 L Cardiac Enzymes 02/19/17 02/20/17 Range/Units 22:00 05:05 Troponin I 0.04 H* 0.04 H* (< 0.04) ng/mL - ABG Interpretation ABG results: ABG ABG pH 7.39 pH Units (7.32-7.45) 02/20/17 05:12 ABG pCO2 60 mmHg (35-45) H 02/20/17 05:12 ABG pO2 78 mmHg (85-104) L 02/20/17 05:12 ABG O2 Saturation 95 % (95-98) 02/20/17 05:12 PT/INR, D-dimer PT 13.6 Seconds (9.4-12.1) H 02/19/17 12:22 Consult Discharge Plan - Plan Referrals: Francisco Javier Torres DO [Primary Care Provider] - (SENT WEB REQUEST ON @ [phone])
[2017-02-21] MEDS: Ipratropium/Albuterol Neb 3 ML IH SCH ×6 (00:02→19:32)
[2017-02-21] MEDS ORDERED: Lidocaine -MPF 1% 5 ML AMPUL INFILT ONE (00:05)
[2017-02-21] MEDS: Budesonide/Formoterol 160/4.5 MDI IH SCH ×2 (07:48→19:32)
[2017-02-21] MEDS: methylPREDNISolone 125 MG/2 ML VIAL IVP SCH ×3 (08:08→23:27)
[2017-02-21] MEDS: Cyanocobalamin (B-12) 1,000 MCG TABLET PO SCH (08:08)
[2017-02-21] MEDS: Apixaban 5 MG TABLET PO SCH ×2 (08:08→20:18)
[2017-02-21] MEDS: Aspirin 81 MG TAB.CHEW PO SCH (08:08)
[2017-02-21] MEDS: Furosemide 40 MG TABLET PO SCH ×2 (08:08→17:04)
[2017-02-21] MEDS: Cholecalciferol (D-3) 1,000 UNIT TABLET PO SCH (08:09)
[2017-02-21 10:01] LABS: Calcium 8.3 mg/dL (8.6-10.3); Potassium 3.6 mEq/L (3.5-5.1)
[2017-02-21 10:09] LABS: Hematocrit 26.2 % (35.3-44.9); Hemoglobin 8.3 g/dL (11.5-15.4); Immature Granulocytes % 1.2 % (0-4); Lymphocytes # 0.2 K/mcL (0.6-4.6); Lymphocytes % 1.9 %; Mean Corpuscular HGB Conc 31.7 g/dL (31.6-35.5); Mean Corpuscular Volume 88.5 fL (83.0-100.0); Mean Platelet Volume 10.6 fL (9.4-12.4); Monocytes # 0.2 K/mcL (0.0-1.3); Monocytes % 1.8 %; Neutrophils # 10.8 K/mcL (1.6-8.9); Platelet Count 121 K/mcL (140-400); Red Blood Count 2.96 M/mcL (3.82-4.97); Red Cell Distribution Width 14.3 % (11.5-14.5); Segmented Neutrophils % 95.1 %
[2017-02-21 11:59] LABS: Platelet Estimate Slight Decrease (Normal); Toxic Granulation Present (Not Present)
--- NOTE | 2017-02-21 12:59 | Pulmonology Consult Note ---
Date of Encounter: 02/21/17 Time of Encounter: 11:00 Assessment and Plan (1) Psychophysiological insomnia Current Visit: Yes Status: Chronic Patient was not possible to do a BiPAP titration due to her insomnia and ideally she will need cognitive behavior therapy and this is after she lost her about will do trial of temazepam which hopefully it will help her to sleep and also get her qualified for BiPAP (2) Acute exacerbation of chronic obstructive airways disease Current Visit: Yes Status: Acute Overall patient is getting better on the current treatment and continue with taper steroid and bronchodilators. History of Present Illness Consult date: 02/21/17 Requesting physician: Eloy Tariq Reason for consult: COPD Chief complaint: Generalized weakness and vomiting History of present illness: This is a pleasant 82-year-old female with multiple medical problems including COPD smoking tobacco related and also atrial fibrillation with hypertension. Patient was complaining of generalized weakness and vomiting and presented to emergency room. Patient also has been having insomnia after her . She is not able to sleep and she has been suffering from insomnia and it was difficult to qualify her for BiPAP last night because she was not able to sleep. Patient is on long-term oxygen therapy. Patient was found to be hypercapnic in the emergency room and overall she is feeling BiPAP helps her symptoms. She stated she was scheduled to have BiPAP titration this month but she could not wait due to worsening of her symptoms. Still has history of anxiety and depression. Patient feels her symptoms are better at this time and she denies any chest pain and her shortness of breath is better with no significant wheezing or sputum production Past Med Surg Social Fam HX - Past Medical History Medical history: arthritis, atrial fibrillation, CHF, COPD, coronary artery disease, GERD, hyperlipidemia, hypertension, osteoporosis, renal disease, other Psychiatric history: anxiety, depression - Past Surgical History Surgical History: appendectomy, cholecystectomy, hysterectomy, other - Social History Smoking Status: Former smoker Smokeless Tobacco Status: No Alcohol use: none Drug use: none - Family History Mother Adopted: No Family Member Ethnicity: Non- Twin of Family Member: Yes, Fraternal Living Status: Hx Family Cardiac Disorders: Yes (pacemaker, CHF) Hx Family Respiratory Disorders: No Hx Family Cancer: Yes (colon cancer) Hx Family GI Disorders: Yes Hx Family Endocrine Disorder: No Hx Family Neuromuscular Disorders: No Hx Family Neurologic Disorders: No Hx Family HEENT Disorders: Yes (Swallowing issues) Hx Family Autoimmune Disorders: No Medications and Allergies Aspirin 81 mg PO DAILY 06/20/15 [History] Cyanocobalamin (Vitamin B-12) [B-12] 1,000 mcg PO DAILY 06/20/15 [History] Simvastatin [Zocor] 40 mg PO HS 06/20/15 [History] Labetalol HCl 200 mg PO DAILY 01/26/16 [History] Albuterol Sulfate [Ventolin Hfa] 2 puff IH Q4-6H PRN 11/02/16 [History] Budesonide/Formoterol 160/4.5 [Symbicort 160/4.5] 2 puff IH BIDR 11/02/16 [ History] Calcitriol [Rocaltrol] 0.25 mcg PO DAILY 11/02/16 [History] Citalopram Hydrobromide [Celexa] 40 mg PO DAILY 11/02/16 [History] Apixaban [Eliquis] 5 mg PO BID 01/29/17 [History] Cholecalciferol (Vitamin D3) [Vitamin D] 1,000 unit PO DAILY 01/29/17 [History] Furosemide [Lasix] 40 mg PO BID 01/29/17 [History] Oxygen 4 l NS AD 02/19/17 [History] Pantoprazole Sodium [Protonix] 40 mg PO DAILY 02/19/17 [History] 3 Allergy/AdvReac Type Severity Reaction Status Date / Time Penicillins [PCN] Allergy Hives Verified 01/26/16 11:14 All Systems: A 10-system review of systems was performed and is negative for pertinent findings except as documented above in the HPI. Physical Examination Vital Signs: Vital Signs, Last 4 Hours Temp Pulse Resp BP Pulse Ox 02/21/17 12:46 85 02/21/17 11:40 18 92 02/21/17 11:00 97.7 F 96 16 106/46 95 General appearance: no acute distress Eyes: nonicteric ENT: oropharynx moist Mallampati (class): 3 Neck: supple Effort: normal Auscultation: bilateral: diminished breath sounds Percussion: bilateral: not dull Cardiovascular: irregular rhythm Gastrointestinal: normoactive bowel sounds Extremities: no cyanosis normal mental status, non-focal exam mood appropriate Results - Laboratory Findings CBC and BMP: 02/21/17 09:30 01/03/18 09:30 ABG ABG pH 7.39 pH Units (7.32-7.45) 02/20/17 05:12 ABG pCO2 60 mmHg (35-45) H 02/20/17 05:12 ABG pO2 78 mmHg (85-104) L 02/20/17 05:12 ABG O2 Saturation 95 % (95-98) 02/20/17 05:12 PT/INR, D-dimer PT 13.6 Seconds (9.4-12.1) H 02/19/17 12:22 Abnormal lab findings: Abnormal lab results WBC 11.3 K/mcL (4.3-11.1) H 02/21/17 09:30 RBC 2.96 M/mcL (3.82-4.97) L 02/21/17 09:30 Hgb 8.3 g/dL (11.5-15.4) L 02/21/17 09:30 Hct 26.2 % (35.3-44.9) L 02/21/17 09:30 Plt Count 121 K/mcL (140-400) L 02/21/17 09:30 Neutrophils # 10.8 K/mcL (1.6-8.9) H 02/21/17 09:30 Lymphocytes # 0.2 K/mcL (0.6-4.6) L 02/21/17 09:30 Toxic Granulation Present (Not Present) A 02/21/17 09:30 Platelet Estimate Slight Decrease (Normal) L 02/21/17 09:30 PT 13.6 Seconds (9.4-12.1) H 02/19/17 12:22 ABG pCO2 60 mmHg (35-45) H 02/20/17 05:12 ABG pO2 78 mmHg (85-104) L 02/20/17 05:12 ABG HCO3 36 mEq/L (21-27) H 02/20/17 05:12 ABG Total CO2 38 mEq/L (20-26) H 02/20/17 05:12 ABG Base Excess 10 mEq/L (-2 to 3) H 02/20/17 05:12 VBG pH 7.31 pH Units (7.32-7.42) L 02/19/17 14:28 VBG pCO2 81 mmHg (41-51) H* 02/19/17 14:28 VBG HCO3 41 mEq/L (21-27) H 02/19/17 14:28 Sodium 135 mEq/L (136-145) L 02/21/17 09:30 Chloride 92 mEq/L (98-107) L 02/21/17 09:30 Carbon Dioxide 35 mEq/L (23-29) H 02/21/17 09:30 BUN 40 mg/dL (8-23) H 02/21/17 09:30 Creatinine 1.48 mg/dL (0.60-1.20) H 02/21/17 09:30 Est GFR ( Amer) 41 (> 60) L 02/21/17 09:30 Est GFR (Non-Af Amer) 34 (> 60) L 02/21/17 09:30 BUN/Creatinine Ratio 27 (6-26) H 02/21/17 09:30 Glucose 162 mg/dL (70-105) H 02/21/17 09:30 POC Glucose 164 (58-89) H 02/20/17 18:40 Calcium 8.3 mg/dL (8.6-10.3) L 02/21/17 09:30 Troponin I 0.04 ng/mL (< 0.04) H* 02/20/17 05:05 B-Natriuretic Peptide 498 pg/mL (Less than 100) H 02/19/17 12:22 Serum Total Protein 5.6 g/dL (6.4-8.9) L 02/19/17 12:22 Albumin 3.4 g/dL (3.5-5.7) L 02/19/17 12:22 Globulin 2.2 g/dL (2.4-3.5) L 02/19/17 12:22 Urine Clarity Cloudy (Clear) A 02/19/17 12:57 Urine Protein 100 mg/dL (Neg-Trace) H 02/19/17 12:57 Urine Blood Small (Negative) H 02/19/17 12:57 Urine Microscopic RBC 5-15 per hpf (0-3) H 02/19/17 12:57 Urine Microscopic WBC 5-15 per hpf (0-3) H 02/19/17 12:57 Ur Squamous Epith Cells Many per lpf (None-Few) H 02/19/17 12:57 Urine Yeast Few per hpf (None Seen) H 02/19/17 12:57 - Diagnostic Findings Chest x-ray: report reviewed, image reviewed - Clinical Findings Intake & Output: Intake & Output 02/20/17 02/21/17 02/21/17 23:59 07:59 15:59 Intake Total 740 / 740 100 / 100 0 / 0 Output Total 200 / 200 150 / 150 0 / 0 Balance 540 / 540 -50 / -50 0 / 0 Weight 70.9 kg Consult Discharge Plan - Plan Referrals: Geovanny Garcia MD [Partnered Physician] - 03/01/17 9:30 am Des Velarde [Non-Partnered Physician] - 02/28/17 9:00 am (THIS IS IN THE NEW OFFICE OVER [facility] FROM [facility])
[2017-02-21] MEDS ORDERED: Temazepam 15 MG CAPSULE PO PRN (13:15)
--- NOTE | 2017-02-21 16:32 | Electrocardiograph Report ---
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
--- NOTE | 2017-02-21 18:43 | Internal Med Progress Note ---
Date of Encounter: 02/21/17 Time of Encounter: 11:00 - Assessment and plan (1) Acute exacerbation of chronic obstructive airways disease Current Visit: Yes Status: Acute Assessment and plan: -Patient currently on 4 L nasal cannula -Continue IV Solu-Medrol with duo nebs (2) Acute and chronic respiratory failure with hypercapnia Current Visit: No Status: Acute Assessment and plan: -Suspect secondary to not wearing BiPAP daily at bedtime -Will Qualify overnight (3) Anemia Current Visit: No Status: Chronic Assessment and plan: -Stable; continue to monitor Qualifiers: Anemia type: iron deficiency Iron deficiency anemia type: unspecified iron deficiency Qualified Code(s): D50.9 - Iron deficiency anemia, unspecified (4) Essential hypertension Current Visit: Yes Status: Chronic Assessment and plan: -Controlled; continue home medications (5) CKD (chronic kidney disease) stage 3, GFR 30-59 ml/min Current Visit: Yes Status: Chronic Assessment and plan: -Stable; continue to monitor (6) DVT prophylaxis Current Visit: Yes Status: Acute Assessment and plan: -On Eliquis - Subjective Interval history: Patient was resolved hypercapnic respiratory failure with COPD exacerbation - Constitutional Vitals: Temp Pulse Resp BP Pulse Ox 98.3 F 74 17 99/63 94 02/21/17 15:49 02/21/17 17:12 02/21/17 15:49 02/21/17 15:49 02/21/17 15:49 General appearance: Present: cooperative, A&O X 3, pleasant, no acute distress, answers questions appropriately Internal Medicine: Result - Labs CBC & Chem 7: 02/21/17 09:30 02/21/17 09:30 Labs: Short CBC 02/21/17 Range/Units 09:30 WBC 11.3 H (4.3-11.1) K/mcL Hgb 8.3 L (11.5-15.4) g/dL Hct 26.2 L (35.3-44.9) % Plt Count 121 L (140-400) K/mcL Neutrophils # 10.8 H (1.6-8.9) K/mcL BMP 02/21/17 09:30 Sodium 135 L Potassium 3.6 Chloride 92 L Carbon Dioxide 35 H BUN 40 H Creatinine 1.48 H Glucose 162 H Calcium 8.3 L - ABG Interpretation ABG results: ABG ABG pH 7.39 pH Units (7.32-7.45) 02/20/17 05:12 ABG pCO2 60 mmHg (35-45) H 02/20/17 05:12 ABG pO2 78 mmHg (85-104) L 02/20/17 05:12 ABG O2 Saturation 95 % (95-98) 02/20/17 05:12 PT/INR, D-dimer PT 13.6 Seconds (9.4-12.1) H 02/19/17 12:22 Consult Discharge Plan - Plan Referrals: Geovanny Garcia MD [Partnered Physician] - 03/01/17 9:30 am Des Velarde [Non-Partnered Physician] - 02/28/17 9:00 am (THIS IS IN THE NEW OFFICE OVER BY [facility])
[2017-02-22] MEDS: Ipratropium/Albuterol Neb 3 ML IH SCH ×4 (00:02→11:07)
[2017-02-22] MEDS: Budesonide/Formoterol 160/4.5 MDI IH SCH (07:45)
[2017-02-22] MEDS: methylPREDNISolone 125 MG/2 ML VIAL IVP SCH (08:16)
[2017-02-22] MEDS: Furosemide 40 MG TABLET PO SCH (08:17)
[2017-02-22] MEDS: Aspirin 81 MG TAB.CHEW PO SCH (08:17)
[2017-02-22] MEDS: Cyanocobalamin (B-12) 1,000 MCG TABLET PO SCH (08:17)
[2017-02-22] MEDS: Cholecalciferol (D-3) 1,000 UNIT TABLET PO SCH (08:17)
[2017-02-22] MEDS: Apixaban 5 MG TABLET PO SCH (08:17)
[2017-02-22 11:16] VITALS: BP 110/60
--- NOTE | 2017-02-22 15:16 | Discharge Summary ---
Date of Encounter: 02/22/17 Time of Encounter: 11:00 - Discharge Diagnosis (1) Acute exacerbation of chronic obstructive airways disease Priority: Secondary Status: Acute (2) Acute and chronic respiratory failure with hypercapnia Priority: Primary Status: Acute (3) Anemia Priority: Secondary Status: Chronic Qualifiers: Anemia type: iron deficiency Iron deficiency anemia type: unspecified iron deficiency Qualified Code(s): D50.9 - Iron deficiency anemia, unspecified (4) Essential hypertension Priority: Secondary Status: Chronic (5) CKD (chronic kidney disease) stage 3, GFR 30-59 ml/min Priority: Secondary Status: Chronic - Discharge Medications Home Medications: Aspirin 81 mg PO DAILY 06/20/15 [History] Cyanocobalamin (Vitamin B-12) [B-12] 1,000 mcg PO DAILY 06/20/15 [History] Simvastatin [Zocor] 40 mg PO HS 06/20/15 [History] Labetalol HCl 200 mg PO DAILY 01/26/16 [History] Albuterol Sulfate [Ventolin Hfa] 2 puff IH Q4-6H PRN 11/02/16 [History] Budesonide/Formoterol 160/4.5 [Symbicort 160/4.5] 2 puff IH BIDR 11/02/16 [ History] Calcitriol [Rocaltrol] 0.25 mcg PO DAILY 11/02/16 [History] Citalopram Hydrobromide [Celexa] 40 mg PO DAILY 11/02/16 [History] Apixaban [Eliquis] 5 mg PO BID 01/29/17 [History] Cholecalciferol (Vitamin D3) [Vitamin D3] 1,000 unit PO DAILY 01/29/17 [History] Furosemide [Lasix] 40 mg PO BID 01/29/17 [History] Oxygen 4 l NS AD 02/19/17 [History] Pantoprazole Sodium [Protonix] 40 mg PO DAILY 02/19/17 [History] Allergies/Adverse Reactions: 3 Allergy/AdvReac Type Severity Reaction Status Date / Time Penicillins [PCN] Allergy Hives Verified 01/26/16 11:14 Procedures/tests Complete & Pending: Procedures Performed prior 72 hours Category Date Time Status ECG 12 lead ECG [ECG] Routine Y 02/21/17 01:28 Completed Date of admission: 02/19/17 16:12 Primary care physician: Francisco Javier Torres DO Consults: 02/20/17 11:31 Consult to Physical Therapy [CONS] Routine Comment: Evaluate, develop and implement POC Reason for Consult: weakness from home with HH, recent d/c from [facility] [Consult to Occupational Therapy] [CONS] Routine Comment: Evaluate, develop and implement POC Reason for Consult: weakness, from home with HH 02/21/17 00:05 Consult to Invasive Line Access Team [CONS] Routine Reason for Consult: POWER WAND INSERTION Line Type: EPIV - Patient Status Disposition: Transfer SNF Condition: Fair - Discharge Instructions Follow Up With: Geovanny Garcia MD [Partnered Physician] - 03/01/17 9:30 am Des Velarde [Non-Partnered Physician] - (PATIENT IS GOING TO REHAB NO PCP APPOINTMENT NEEDED) Hospital course: Patient is an 82-year-old female with past medical history significant for atrial fibrillation, CHF, COPD, CAD, GERD, hyperlipidemia, hypertension, osteoporosis, renal disease, anxiety and depression who presented to the ER on due to generalized weakness. Patient was recently discharged from the hospital to [facility]. She was then discharged from [facility] to home about 2 days prior to this admission. Patient states ever since she got home she has been having generalized weakness and also has a poor appetite. Family states that patient is not her usual self in terms of generalized weakness. Patient also states that she is supposed to be on BiPAP, but this cannot be set up for the next few weeks, as she needs another sleep study. Initial workup in the ED is significant for elevated CO2 level and elevated BNP. Patient also has chronically elevated troponin. Patient was given a breathing treatment and Solu-Medrol in the ED for probable COPD exacerbation. She was admitted to the medical floor for further medical management. During patients hospital stay her for acute respiratory failure resolved after treatment with BiPAP and continue BiPAP used daily at bedtime. Patients BiPAP machine has now been ordered and will be discharged to [facility]. - Time Spent with Patient Total time spent providing and/or coordinating discharge services: - Constitutional Vitals: Temp Pulse Resp BP Pulse Ox 96.4 F L 75 16 110/60 100 02/22/17 11:10 02/22/17 11:10 02/22/17 11:10 02/22/17 11:10 02/22/17 11:10 General appearance: Present: cooperative, A&O X 3, pleasant, no acute distress, answers questions appropriately - Respiratory Respiratory exam: Present: CTAB. Absent: accessory muscle use, rales, rhonchi, wheezes - Cardiovascular Cardiovascular exam: Present: RRR, +S1, +S2. Absent: diastolic murmur, gallop, rubs, systolic murmur
--- NOTE | 2017-02-22 15:19 | Physician Discharge Referral ---
ExtendedCare Referral Info Institutional Level of Care: Skilled - Diagnosis (1) Acute exacerbation of chronic obstructive airways disease Priority: Secondary Status: Acute (2) Acute and chronic respiratory failure with hypercapnia Priority: Primary Status: Acute (3) Anemia Priority: Secondary Status: Chronic (4) Essential hypertension Priority: Secondary Status: Chronic (5) CKD (chronic kidney disease) stage 3, GFR 30-59 ml/min Priority: Secondary Status: Chronic - Transfer Medications Home Medications: Aspirin 81 mg PO DAILY 06/20/15 [History] Cyanocobalamin (Vitamin B-12) [B-12] 1,000 mcg PO DAILY 06/20/15 [History] Simvastatin [Zocor] 40 mg PO HS 06/20/15 [History] Labetalol HCl 200 mg PO DAILY 01/26/16 [History] Albuterol Sulfate [Ventolin Hfa] 2 puff IH Q4-6H PRN 11/02/16 [History] Budesonide/Formoterol 160/4.5 [Symbicort 160/4.5] 2 puff IH BIDR 11/02/16 [ History] Calcitriol [Rocaltrol] 0.25 mcg PO DAILY 11/02/16 [History] Citalopram Hydrobromide [Celexa] 40 mg PO DAILY 11/02/16 [History] Apixaban [Eliquis] 5 mg PO BID 01/29/17 [History] Cholecalciferol (Vitamin D3) [Vitamin D3] 1,000 unit PO DAILY 01/29/17 [History] Furosemide [Lasix] 40 mg PO BID 01/29/17 [History] Oxygen 4 l NS AD 02/19/17 [History] Pantoprazole Sodium [Protonix] 40 mg PO DAILY 02/19/17 [History] Allergies/Adverse Reactions: 3 Allergy/AdvReac Type Severity Reaction Status Date / Time Penicillins [PCN] Allergy Hives Verified 01/26/16 11:14 - Respiratory Orders Smoking Cessation: Smoking cessation has been advised. For more information, call the [place] Tobacco Quit Line at 4-541-KIIM-NOW. CERTIFICATION: I certify that the transfer of the above named patient to an Extended Care Facility is necessary for the continuing treatment of the diagnosis listed. The above information is true and accurate reflection of patient's current condition. Confidential - Redisclosure prohibited without a patient's written consent.
== END 2017-02-22 18:37 | DRG 190 ==
LOC: EMEROO 11:30 → 2NNU 11:30 → SUATTDRO 16:12
PROVIDERS: ADMIT Internal Medicine Nephrology; ATTEND Hospitalist